=== PATIENT | female | born 1945 | race Caucasian/White ===

== ENCOUNTER → 2017-01-16 | Outpatient (CLI) | payer OTHER ==
[~2017-01-16] MED LIST: ASPEC81 PO; B-COCAP2 PO; CALCTAB5 PO; CETI10TA10 PO; CHOL1000 PO; CRAN500C2 PO; MULT-506 PO; OMEP40CA PO
[2017-01-16 16:26] LABS: BASO % 0.1 %; BASO ABS # 0.01 K/uL (0-0.2); COMPLETE YES; EOS % 1.9 %; HEMATOCRIT 38.6 % (37-47); IG% 0.1 %; LYMPH % 24.8 %; LYMPH ABS # 1.71 K/uL (1.2-3.4); MEAN CELL VOLUME 91.3 fL (80-100); MEAN CORPUSCULAR HEMOGLOBIN 31.7 pg (25-34); MEAN CORPUSCULAR HGB CONC 34.7 g/dl (32-36); MEAN PLATELET VOLUME 10.2 fL (7.4-10.4); MONO % 5.5 %; NEUT % 67.6 %; PLATELET COUNT 239 K/uL (130-400); RED BLOOD COUNT 4.23 M/uL (4.2-5.4)
[2017-01-16 17:04] LABS: ALT/SGPT 31 U/L (12-78); BLOOD UREA NITROGEN 11 mg/dl (7-18); BUN/CREATININE RATIO 11.1 (10-20); CALCIUM 8.7 mg/dl (8.5-10.1); CARBON DIOXIDE 28 mmol/L (21-32); CHLORIDE 101 mmol/L (98-107); CREATININE 0.97 mg/dl (0.60-1.20); GLUCOSE 95 mg/dl (70-99); POTASSIUM 3.8 mmol/L (3.5-5.1); SODIUM 136 mmol/L (136-145)
[2017-01-16 17:07] LABS: ALB/GLOB RATIO 1.3 (0.9-2); ALKALINE PHOSPHATASE 109 U/L (45-117); AST/SGOT 25 U/L (15-37)
--- NOTE | 2017-01-24 07:31 | CODING QUERY MEDICAL NECESSITY ---
CQSUPPORTING DIAGNOSIS NEEDED A supporting diagnosis is required for the test/procedure performed on this patient in order for us to be reimbursed by the patient's insurance. Please provide a supporting diagnosis for the following test/procedure listed below next to the test name along with your signature. *If there is no additional diagnosis for this patient that would support the following test/procedure please document that below next to the test/procedure. Test(s)/Procedure(s) that require a supporting diagnosis: DOS 01/16/17 VITAMIN B12 VITAMIN D Provider Signature: Date: Thank you Jelly Briones Health Information Management Once completed, please kindly fax back to [phone] For questions please call [phone]
== END | disposition home or self-care (01) ==
LOC: C.LAB1850 15:30
PROVIDERS: ATTEND Internal Medicine
DX: Z11.59 Encounter for screening for other viral diseases (principal); R20.2 Paresthesia of skin; Z87.39 Personal history of other diseases of the musculoskeletal system and connective tissue; R06.02 Shortness of breath; R53.83 Other fatigue; M85.80 Other specified disorders of bone density and structure, unspecified site

== ENCOUNTER → 2017-01-26 | Outpatient (CLI) | payer OTHER ==
--- NOTE | 2017-01-26 13:32 | MAMMOGRAPHY REPORT ---
BILATERAL DIGITAL SCREENING MAMMOGRAM WITH CAD: 01/26/2017 TECHNIQUE: Current study was also evaluated with a Computer Aided Detection (CAD) system. Bilatera l CC and MLO views were obtained. COMPARISON: Comparison is made to exams dated: 01/24/2016 mammogram, 01/22/2015 mammogram, 01/21/2014 mammogram, 01/20/2013 mammogram, 01/18/2012 mammogram, and 01/16/2011 mammogram - [facility]. BREAST COMPOSITION: The tissue of both breasts is heterogeneously dense, which may obscure small ma sses. FINDINGS: No suspicious masses, calcifications, or areas of architectural distortion are noted in e ither breast. There has been no significant interval change compared to prior exams. IMPRESSION: ACR BI-RADS CATEGORY 1: NEGATIVE There is no mammographic evidence of malignancy. A 1 year screening mammogram is recommended. The p atient will receive written notification of the results. Approximately 10% of breast cancers are not detected with mammography. A negative mammographic repor t should not delay biopsy if a clinically suggestive mass is present. Priscilla Arriaga M.D. ah/:01/26/2017 12:47:48 [employer]ductor Symphonic Orchestra: Haley Mcclure RT(R)(M), [facility] letter sent: Normal 1/2 BI-RADS Code: ACR BI-RADS Category 1: Negative
== END | disposition home or self-care (01) ==
LOC: C.MAMM 11:19
PROVIDERS: ATTEND Obstetrics & Gynecology
DX: Z12.31 Encounter for screening mammogram for malignant neoplasm of breast (principal)

== ENCOUNTER → 2017-08-06 | Outpatient (CLI) | payer OTHER | END | disposition home or self-care (01) | LOC: C.MAMM 10:18 | PROVIDERS: ATTEND Internal Medicine | DX: Z87.39 Personal history of other diseases of the musculoskeletal system and connective tissue (principal); M85.89 Other specified disorders of bone density and structure, multiple sites; M81.0 Age-related osteoporosis without current pathological fracture ==

== ENCOUNTER → 2017-08-28 | Outpatient (CLI) | payer OTHER ==
[2017-08-28 17:06] LABS: CALCIUM 9.4 mg/dl (8.5-10.1); CREATININE 0.86 mg/dl (0.60-1.20)
== END | disposition home or self-care (01) ==
LOC: C.LAB1850 15:09
PROVIDERS: ATTEND Internal Medicine Rheumatology
DX: E61.8 Deficiency of other specified nutrient elements (principal)

== ENCOUNTER → 2017-09-03 | Outpatient (CLI) | payer OTHER ==
[2017-09-03 13:55] LABS: URINE COLLECTION TIME 24 HOURS
[2017-09-03 14:03] LABS: CALCIUM URINE < 5.0 mg/dl
[2017-09-03 15:47] LABS: CALCIUM 9.1 mg/dl (8.5-10.1)
== END | disposition home or self-care (01) ==
LOC: C.LAB1850 11:50
PROVIDERS: ATTEND Internal Medicine Rheumatology
DX: M81.0 Age-related osteoporosis without current pathological fracture (principal); E61.8 Deficiency of other specified nutrient elements

== ENCOUNTER → 2017-11-05 | Outpatient (CLI) | payer OTHER ==
--- NOTE | 2017-11-05 13:20 | DIAGNOSTIC IMAGING REPORT ---
LUMBAR SPINE 5 VIEWS CLINICAL HISTORY: Right-sided back pain. Sciatica. FINDINGS: Five views of the lumbar spine are compared to study dated 04/11/2016. The skeletal structures are osteopenic. There is no radiographic evidence of fracture or malalignment. Vertebral body height and alignment are maintained throughout the lumbar spine. Mild to moderate lumbar levocurvature is centered at L2. The transverse and spinous processes appear intact. There is no evidence of spondylolysis. Small anterior and marginal osteophytes are seen throughout. There is mild disc space narrowing seen from L3 to L4 through L5-S1. Mild to moderate facet arthropathy is noted in the lower lumbar region. The bony pelvis is intact as imaged. No bowel obstruction is seen. IMPRESSION: 1. No acute bony abnormality is seen involving the lumbar spine. 2. Osteopenia with lumbosacral spondylosis and scoliosis as above. Dictated: 11/05/2017 12:47 PM Transcribed: 11/05/2017 1:19 PM Monica Electronically signed by: Osmar Altamirano M.D. 11/05/2017 1:21 PM Dictated Date/Time: 11/05/2017 12:47 PM
== END | disposition home or self-care (01) ==
LOC: C.RAD1850 12:17
PROVIDERS: ATTEND Internal Medicine
DX: M54.41 Lumbago with sciatica, right side (principal)

== ENCOUNTER → 2017-12-21 | Outpatient (CLI) | payer OTHER ==
--- NOTE | 2017-12-21 16:19 | DIAGNOSTIC IMAGING REPORT ---
LUMBAR SPINE W/O CONTRAST HISTORY: Pain M54.5 Low back painR20.2 CvtutpteU80.0 HuxrivgbM79.9 Sleep distu TECHNIQUE: Multiplanar multisequence MRI of the lumbar spine was performed without the use of contrast. COMPARISON: None. FINDINGS: For the purpose of the report the L5-S1 disc space will be located on axial image 27 of 30. Normal vertebral body signal characteristics. Benign bone marrow hemangioma of T12. Moderate degenerative disc changes throughout. Right renal cyst measuring 2.8 cm. L1-L2: No significant central canal or neural foraminal narrowing. L2-L3: Mild broad-based bulging disc. Minimal impact anterior thecal sac. Minimal narrowing right neuroforamina. L3-L4: Mild right central disc herniation. Moderate narrowing right neuroforamina. Mild impact right central anterior thecal sac. L4-L5: Broad-based disc herniation. Moderate multifactorial narrowing of the spinal canal. Considerable narrowing right neuroforamina. Moderate narrowing left neural foramina. Considerable degenerative and hypertrophic change posterior facets. L5-S1: Minimal broad-based bulging disc. IMPRESSION: 1. Broad-based disc herniation L4-L5 , with findings of moderate multifactorial narrowing of the spinal canal. 2. Considerable narrowing right neuroforamina at L4-L5. 3. Mild right central disc herniation L3-L4 with moderate narrowing right neuroforamina. 4. Several additional minimal disc bulges. The above report was generated using voice recognition software. It may contain grammatical, syntax or spelling errors. Electronically signed by: Francisco Hernandez M.D. 12/21/2017 4:18 PM Dictated Date/Time: 12/21/2017 4:14 PM
== END | disposition home or self-care (01) ==
LOC: C.MRI 14:37
PROVIDERS: ATTEND Internal Medicine
DX: M51.26 Other intervertebral disc displacement, lumbar region (principal); R20.2 Paresthesia of skin; R20.0 Anesthesia of skin; G47.9 Sleep disorder, unspecified; M54.41 Lumbago with sciatica, right side

== ENCOUNTER → 2018-01-10 | Outpatient (CLI) | payer OTHER | END | disposition home or self-care (01) | LOC: C.PATHSPEC 18:06 | PROVIDERS: ATTEND Plastic Surgery | DX: D04.62 Carcinoma in situ of skin of left upper limb, including shoulder (principal) ==

== ENCOUNTER → 2018-01-28 | Outpatient (CLI) | payer OTHER ==
--- NOTE | 2018-01-29 07:40 | MAMMOGRAPHY REPORT ---
BILATERAL DIGITAL SCREENING MAMMOGRAM TOMOSYNTHESIS WITH CAD: 01/28/2018 CLINICAL HISTORY: Routine screening. Patient has no complaints. TECHNIQUE: Breast tomosynthesis in addition to standard 2D mammography was performed. Current study was also evaluated with a Computer Aided Detection (CAD) system. COMPARISON: Comparison is made to exams dated: 01/26/2017 mammogram, 01/24/2016 mammogram, 01/22/2015 m ammogram, 01/21/2014 mammogram, 01/20/2013 mammogram, and 01/18/2012 mammogram - [facility] enter. BREAST COMPOSITION: The tissue of both breasts is heterogeneously dense, which may obscure small mas ses. FINDINGS: The parenchymal pattern is unchanged. No developing mass, architectural distortion or clus ter of suspicious microcalcifications is seen in either breast. IMPRESSION: ACR BI-RADS CATEGORY 2: BENIGN There is no mammographic evidence of malignancy. A 1 year screening mammogram is recommended. The pa tient will receive written notification of the results. Approximately 10% of breast cancers are not detected with mammography. A negative mammographic report should not delay biopsy if a clinically suggestive mass is present. Maria Luisa Chavez M.D. ay/:01/28/2018 15:35:41 Release Coordinator: Isable HENDRICKS(Glenn)(M), [facility] letter sent: Normal 1/2 BI-RADS Code: ACR BI-RADS Category 2: Benign
== END | disposition home or self-care (01) ==
LOC: C.MAMM 13:00
PROVIDERS: ATTEND Obstetrics & Gynecology
DX: Z12.31 Encounter for screening mammogram for malignant neoplasm of breast (principal)

== ENCOUNTER 2023-02-25 13:07 | Observation (INO) ==
[2023-02-25] MEDS ORDERED: SODIUM CHLORIDE 0.9% 1000ML 500 ML IV ONE (13:36)
--- NOTE | 2023-02-25 13:41 | Emergency Department Note ---
History of Present Illness General Chief complaint: Illness Stated complaint: GAIT DISTURBANCE, RIGHT SIDE NUMBNESS, HEADACHE Time Seen by Provider: 02/25/23 13:24 Source: patient, family ( who is at the bedside) and old records reviewed (I have reviewed old labs and previous hospital encounters) Mode of arrival: ambulatory Limitations: no limitations History of Present Illness This patient is a 77-year-old female who comes in after having episodes where it felt like her right arm was weak and tingly. She says that she has had a decreased appetite recently from gastroparesis and is lost about 10 pounds. She says she cannot eat a lot and she went to [email or web address] this morning felt fine and around 08-18 15 she started feeling like she was shaky and numb in her right arm nothing on the right face or leg. She said she felt she could not stand. She felt she might pass out when she was standing. Her said she had a headache at the time she feels better at present just feels diffusely weak she had another episode where her arm felt tingly again but none at present no chest pain may be slightly short of breath at time. No difficulty speaking or swallowing no fall or trauma. She says she laid down and felt okay. No history of stroke or mini strokes. Looking back through the chart she has had hyponatremia in the past. She also has had memory issues over the last 3 years. Home Medications Medication Instructions Recorded Confirmed Type calcium carbonate 600 mg calcium 600 mg PO QAM 11/24/19 02/25/23 History (1,500 mg) tablet (Calcium) cholecalciferol (vitamin D3) 25 1,000 units PO QAM 02/17/20 02/25/23 History mcg (1,000 unit) capsule multivitamin with minerals 1 tab PO QAM 01/17/21 02/25/23 History (Hair,Skin and Nails tablet) triamcinolone acetonide 55 mcg 1 spray intranasal DAILY #16.9 mL 08/16/22 02/25/23 Rx nasal spray aerosol (Nasacort) escitalopram oxalate 10 mg tablet 15 mg PO HS 11/22/22 02/25/23 History oxybutynin chloride 5 mg 5 mg PO DAILY #90 tabs 01/02/23 02/25/23 Rx tablet,extended release 24 hr donepezil 5 mg tablet 5 mg PO HS #30 tabs 02/15/23 02/25/23 Rx omeprazole 40 mg capsule,delayed 40 mg PO DAILY #90 caps 02/21/23 02/25/23 Rx release ondansetron HCl 4 mg tablet 4 mg PO Q8H PRN nausea and 02/22/23 02/25/23 Rx vomiting #90 tabs Allergies Allergy/AdvReac Type Severity Reaction Status Date / Time Sulfa (Sulfonamide Allergy Intermediate HIVES Verified 02/21/23 13:26 Antibiotics) Penicillins Allergy Mild RASH Verified 02/21/23 13:26 doxycycline AdvReac Nausea and Verified 02/21/23 13:26 vomiting Past Med/Surg History Medical History Adjustment disorder with depressed mood Anxiety Cognitive and behavioral changes memory issues Cyst of kidney, acquired DDD (degenerative disc disease) GERD without esophagitis History of osteonecrosis HTN (hypertension) Nausea reason for upcoming procedure Osteoporosis Scoliosis mild Signs and symptoms involving cognition SOBOE (shortness of breath on exertion) Surgical History History of cataract surgery BL History of esophagogastroduodenoscopy (EGD) History of tooth extraction Hx of colonoscopy S/P tubal ligation Family History Mother , age 83 Lymphoma Hypertension Grandmother (Paternal) Breast cancer Grandfather (Maternal) Colorectal cancer Father Dementia Stroke Brother Lung cancer Stroke Other No family history of adverse response to anesthesia Denies family history of Ovarian cancer Prostate cancer Myocardial infarction Social History Smoking Status: Former smoker Second Hand Exposure: No; Do You Dip or Chew Tobacco: No; Hx Alcohol Use: Yes (Socially if family events no more than 1 glass at the time) Hx Substance Use: No Preferred Language: Angolan Communication Ability: Effective Visual Impairment: No Limitations Hearing Ability: Normal Pecan Sheller Required: No Beliefs That Will Affect Care: None marital status: Current Living Situation: Spouse Feels Safe at Home: Yes Seatbelt Use: always Assistive Devices: Denture - Lower Review of Systems A total of 10 systems reviewed and were otherwise negative Physical Exam Vital Signs Vital Signs - 24 hr 02/25/23 13:10 02/25/23 13:25 02/25/23 13:27 Temperature 36.6 C Temperature Source Temporal Artery Scan Pulse Rate 78 75 Pulse Rate [Apical] 76 Pulse Rate from SpO2 Sensor Respiratory Rate 16 12 Respiratory Effort / Characteristics Non-Labored Spontaneous Respiratory Depth Normal Respiratory Pattern Regular Blood Pressure 149/79 H Blood Pressure [Left Arm] 158/83 H Blood Pressure Mean 102 Blood Pressure Mean [Left Arm] 108 Pulse Oximetry 99 14 L Oxygen Delivery Method Room Air Sepsis Recent Fever Within 48 Hours No Sepsis New/Unexplained Change in Mental Status N/A Sepsis Action Taken by Nursing No Action Required 02/25/23 13:24 02/25/23 13:27 02/25/23 13:27 Temperature Temperature Source Pulse Rate 73 74 Pulse Rate [Apical] Pulse Rate from SpO2 Sensor Respiratory Rate 19 18 Respiratory Effort / Characteristics Respiratory Depth Respiratory Pattern Blood Pressure 158/83 H Blood Pressure [Left Arm] Blood Pressure Mean 108 Blood Pressure Mean [Left Arm] Pulse Oximetry Oxygen Delivery Method Sepsis Recent Fever Within 48 Hours Sepsis New/Unexplained Change in Mental Status Sepsis Action Taken by Nursing 02/25/23 13:30 02/25/23 13:30 02/25/23 13:40 Temperature Temperature Source Pulse Rate 75 74 Pulse Rate [Apical] Pulse Rate from SpO2 Sensor 76 73 Respiratory Rate 21 17 Respiratory Effort / Characteristics Respiratory Depth Respiratory Pattern Blood Pressure 140/74 Blood Pressure [Left Arm] Blood Pressure Mean 96 Blood Pressure Mean [Left Arm] Pulse Oximetry 97 98 Oxygen Delivery Method Sepsis Recent Fever Within 48 Hours Sepsis New/Unexplained Change in Mental Status Sepsis Action Taken by Nursing 02/25/23 13:40 02/25/23 13:50 02/25/23 13:50 Temperature Temperature Source Pulse Rate 73 Pulse Rate [Apical] Pulse Rate from SpO2 Sensor 72 Respiratory Rate 21 Respiratory Effort / Characteristics Respiratory Depth Respiratory Pattern Blood Pressure 151/75 H 147/75 H Blood Pressure [Left Arm] Blood Pressure Mean 100 99 Blood Pressure Mean [Left Arm] Pulse Oximetry 98 Oxygen Delivery Method Sepsis Recent Fever Within 48 Hours Sepsis New/Unexplained Change in Mental Status Sepsis Action Taken by Nursing 02/25/23 14:05 02/25/23 14:21 02/25/23 14:21 Temperature Temperature Source Pulse Rate 81 78 Pulse Rate [Apical] Pulse Rate from SpO2 Sensor 81 78 Respiratory Rate 18 19 Respiratory Effort / Characteristics Respiratory Depth Respiratory Pattern Blood Pressure 123/101 H Blood Pressure [Left Arm] Blood Pressure Mean 108 Blood Pressure Mean [Left Arm] Pulse Oximetry 94 97 Oxygen Delivery Method Sepsis Recent Fever Within 48 Hours Sepsis New/Unexplained Change in Mental Status Sepsis Action Taken by Nursing 02/25/23 14:30 02/25/23 14:41 02/25/23 14:41 Temperature Temperature Source Pulse Rate 73 77 Pulse Rate [Apical] Pulse Rate from SpO2 Sensor 73 75 Respiratory Rate 19 17 Respiratory Effort / Characteristics Respiratory Depth Respiratory Pattern Blood Pressure Blood Pressure [Left Arm] Blood Pressure Mean 13 Blood Pressure Mean [Left Arm] Pulse Oximetry 95 98 Oxygen Delivery Method Sepsis Recent Fever Within 48 Hours Sepsis New/Unexplained Change in Mental Status Sepsis Action Taken by Nursing 02/25/23 15:00 02/25/23 15:00 02/25/23 15:20 Temperature Temperature Source Pulse Rate 74 68 Pulse Rate [Apical] Pulse Rate from SpO2 Sensor 74 68 Respiratory Rate 20 22 Respiratory Effort / Characteristics Respiratory Depth Respiratory Pattern Blood Pressure 142/103 H Blood Pressure [Left Arm] Blood Pressure Mean 116 Blood Pressure Mean [Left Arm] Pulse Oximetry 97 95 Oxygen Delivery Method Sepsis Recent Fever Within 48 Hours Sepsis New/Unexplained Change in Mental Status Sepsis Action Taken by Nursing 02/25/23 15:20 02/25/23 15:30 02/25/23 15:30 Temperature Temperature Source Pulse Rate Pulse Rate [Apical] Pulse Rate from SpO2 Sensor 77 Respiratory Rate 16 Respiratory Effort / Characteristics Respiratory Depth Respiratory Pattern Blood Pressure 154/83 H 184/107 H Blood Pressure [Left Arm] Blood Pressure Mean 106 132 Blood Pressure Mean [Left Arm] Pulse Oximetry 99 Oxygen Delivery Method Sepsis Recent Fever Within 48 Hours Sepsis New/Unexplained Change in Mental Status Sepsis Action Taken by Nursing 02/25/23 15:40 02/25/23 15:40 02/25/23 16:00 Temperature Temperature Source Pulse Rate 75 Pulse Rate [Apical] Pulse Rate from SpO2 Sensor 74 Respiratory Rate 22 Respiratory Effort / Characteristics Respiratory Depth Respiratory Pattern Blood Pressure 136/80 153/76 H Blood Pressure [Left Arm] Blood Pressure Mean 98 101 Blood Pressure Mean [Left Arm] Pulse Oximetry 97 Oxygen Delivery Method Sepsis Recent Fever Within 48 Hours Sepsis New/Unexplained Change in Mental Status Sepsis Action Taken by Nursing 02/25/23 16:00 02/25/23 16:10 02/25/23 16:10 Temperature Temperature Source Pulse Rate 72 73 Pulse Rate [Apical] Pulse Rate from SpO2 Sensor 72 71 Respiratory Rate 22 18 Respiratory Effort / Characteristics Respiratory Depth Respiratory Pattern Blood Pressure 135/68 Blood Pressure [Left Arm] Blood Pressure Mean 90 Blood Pressure Mean [Left Arm] Pulse Oximetry 98 97 Oxygen Delivery Method Room Air Sepsis Recent Fever Within 48 Hours Sepsis New/Unexplained Change in Mental Status Sepsis Action Taken by Nursing 02/25/23 16:20 02/25/23 16:20 02/25/23 16:30 Temperature Temperature Source Pulse Rate 67 Pulse Rate [Apical] Pulse Rate from SpO2 Sensor 67 Respiratory Rate 16 Respiratory Effort / Characteristics Respiratory Depth Respiratory Pattern Blood Pressure 169/84 H 163/86 H Blood Pressure [Left Arm] Blood Pressure Mean 112 111 Blood Pressure Mean [Left Arm] Pulse Oximetry 99 Oxygen Delivery Method Sepsis Recent Fever Within 48 Hours Sepsis New/Unexplained Change in Mental Status Sepsis Action Taken by Nursing 02/25/23 16:30 02/25/23 16:40 02/25/23 16:40 Temperature Temperature Source Pulse Rate 72 69 Pulse Rate [Apical] Pulse Rate from SpO2 Sensor 72 69 Respiratory Rate 24 15 Respiratory Effort / Characteristics Respiratory Depth Respiratory Pattern Blood Pressure 162/89 H Blood Pressure [Left Arm] Blood Pressure Mean 113 Blood Pressure Mean [Left Arm] Pulse Oximetry 97 100 Oxygen Delivery Method Sepsis Recent Fever Within 48 Hours Sepsis New/Unexplained Change in Mental Status Sepsis Action Taken by Nursing 02/25/23 16:50 02/25/23 16:50 02/25/23 17:00 Temperature Temperature Source Pulse Rate 68 Pulse Rate [Apical] Pulse Rate from SpO2 Sensor 68 Respiratory Rate 23 Respiratory Effort / Characteristics Respiratory Depth Respiratory Pattern Blood Pressure 165/81 H 165/90 H Blood Pressure [Left Arm] Blood Pressure Mean 109 115 Blood Pressure Mean [Left Arm] Pulse Oximetry 99 Oxygen Delivery Method Sepsis Recent Fever Within 48 Hours Sepsis New/Unexplained Change in Mental Status Sepsis Action Taken by Nursing 02/25/23 17:00 02/25/23 17:10 02/25/23 17:10 Temperature Temperature Source Pulse Rate 71 70 Pulse Rate [Apical] Pulse Rate from SpO2 Sensor 71 70 Respiratory Rate 24 17 Respiratory Effort / Characteristics Respiratory Depth Respiratory Pattern Blood Pressure 170/89 H Blood Pressure [Left Arm] Blood Pressure Mean 116 Blood Pressure Mean [Left Arm] Pulse Oximetry 96 97 Oxygen Delivery Method Room Air Sepsis Recent Fever Within 48 Hours Sepsis New/Unexplained Change in Mental Status Sepsis Action Taken by Nursing General: Well developed well nourished older female who appears in no acute distress, breathing comfortably on room air. Normal speech, nonslurred. Answers all questions appropriately HEENT: Normal cephalic atraumatic. Pupils are equal round and reactive to light. Extraocular movements are intact. Oropharynx is pink with moist mucous membranes. No swelling of the mouth lips or tongue. No facial asymmetry or droop. Neck: Supple with a midline trachea. No meningeal signs or stiffness, no JVD or bruits. No Stridor. Chest: Clear to auscultation bilaterally. No wheezes or rhonchi. No increased work of breathing. Heart: Regular rate and rhythm without murmurs or gallops. Abdomen: Soft nontender, nondistended without rebound guarding or rigidity. Extremities: No cyanosis clubbing or edema. No calf tenderness or assymetry Spine/Back. Non tender to palpation. No CVA tenderness Skin: Good turgor without rashes. Neurologic exam: Cranial nerves two through 12 are intact. Motor and sensation are intact and symmetrical throughout. No pronator drift. No tremor. Course Administered Medications Discontinued Medications Aspirin (Aspirin 81 Mg Chew) 324 mg PO NOW STA Stop: 02/25/23 14:50 Last Admin: 02/25/23 15:24 Dose: 324 mg Documented By: SAM Sodium Chloride (Nss 1000ml) 500 mls @ 999 mls/hr IV .Q31M ONE Stop: 02/25/23 14:06 Last Infusion: 02/25/23 15:30 Dose: 0 mls/hr Documented By: Admin: 02/25/23 13:48 Dose: 999 mls/hr Documented By: SAM Ioversol (Optiray 320 500ml) 120 ml IV ONCE ONE Stop: 02/25/23 13:56 Last Admin: 02/25/23 13:56 Dose: 120 ml Documented By: LYNSEY Medical Decision Making Differential Diagnosis CVA, TIA, arrhythmia, syncope/near syncope, electrolyte or metabolic abnormality, hyponatremia, infection, dehydration Medical Records Attestation: I reviewed the patient's medical records. Home Medications Current Medication List: was personally reviewed by me Laboratory Data Attestation: I reviewed the patient's lab results. 02/25/23 13:25 02/25/23 13:25 Lab Results 05/21/23 05/21/23 05/21/23 Range/Units 13:25 13:25 13:25 WBC 8.09 (4.8-10.8) K/ul RBC 4.50 (4.20-5.40) M/uL Hgb 13.9 (12.0-16.0) g/dl POC Hgb (12.0-16.0) g/dl Hct 40.8 (37.0-47.0) % POC Hct (37-47) % MCV 90.7 (80.0-100.0) fL MCH 30.9 (25.0-34.0) pg MCHC 34.1 (32.0-36.0) g/dL RDW Std Deviation 41.5 (36.4-46.3) fL RDW Coeff of Sameera 12.6 (11.5-14.5) % Plt Count 246 (130-400) K/uL MPV 10.1 (9.4-12.4) fL Immature Gran % (Auto) 0.2 % Neut % (Auto) 77.3 % Lymph % (Auto) 16.1 % Harlan % (Auto) 5.4 % Eos % (Auto) 0.5 % Baso % (Auto) 0.5 % Neut # (Auto) 6.25 (1.40-6.50) K/uL Lymph # (Auto) 1.30 (1.2-3.4) K/uL Harlan # (Auto) 0.44 (0.11-0.59) K/uL Eos # (Auto) 0.04 (0-0.50) K/uL Baso # (Auto) 0.04 (0-0.2) K/uL Immature Gran # (Auto) 0.02 (0.01-0.20) K/uL PT 10.7 (9.0-12.0) Seconds INR 1.0 (0.9-1.1) APTT 23.4 (21.0-31.0) Seconds PTT Ratio 0.8 POC Sodium (135-144) mmol/L Sodium 133 L (136-145) mmol/L POC Potassium (3.3-5.0) mmol/L Potassium 3.1 L (3.5-5.1) mmol/L POC Chloride (101-112) mmol/L Chloride 98 (98-107) mmol/L Carbon Dioxide 27 (21-32) mmol/L POC Total CO2 (24-31) mmol/L Anion Gap 8 (3-11) POC Anion Gap (16-25) mmol/L POC BUN (7-18) mg/dl BUN 11 (6-23) mg/dl Creatinine 0.92 (0.6-1.2) mg/dl POC Creatinine (0.6-1.3) mg/dl Est Cr Clr Drug Dosing 47.4 ml/min Est GFR ( Amer) 70.1 ml/min Est GFR (Non-Af Amer) 60.5 ml/min BUN/Creatinine Ratio 12.0 (10-20) Glucose 108 H (70-99(Fasting)) mg/dl POC Glucose (other) (70-99) mg/dl Calcium 9.6 (8.6-10.3) mg/dl POC Ioniz Calcium Ness (1.12-1.32) mmol/l Magnesium 2.0 (1.7-2.4) mg/dl Total Bilirubin 1.0 (0.2-1.0) mg/dl AST 23 (13-39) U/L ALT 17 (7-52) U/L Alkaline Phosphatase 74 (34-104) U/L Troponin I High Sens 3.9 (0-14) pg/ml Total Protein 7.4 (6.0-8.3) gm/dl Albumin 4.4 (3.4-5.0) gm/dl Globulin 3.0 (2.5-4.0) gm/dl Albumin/Globulin Ratio 1.5 (0.9-2) SARS-CoV-2, RNA, NAAT (NEGATIVE) 02/25/23 02/25/23 Range/Units 13:42 15:26 WBC (4.8-10.8) K/ul RBC (4.20-5.40) M/uL Hgb (12.0-16.0) g/dl POC Hgb 15.0 (12.0-16.0) g/dl Hct (37.0-47.0) % POC Hct 44 (37-47) % MCV (80.0-100.0) fL MCH (25.0-34.0) pg MCHC (32.0-36.0) g/dL RDW Std Deviation (36.4-46.3) fL RDW Coeff of Sameera (11.5-14.5) % Plt Count (130-400) K/uL MPV (9.4-12.4) fL Immature Gran % (Auto) % Neut % (Auto) % Lymph % (Auto) % Harlan % (Auto) % Eos % (Auto) % Baso % (Auto) % Neut # (Auto) (1.40-6.50) K/uL Lymph # (Auto) (1.2-3.4) K/uL Harlan # (Auto) (0.11-0.59) K/uL Eos # (Auto) (0-0.50) K/uL Baso # (Auto) (0-0.2) K/uL Immature Gran # (Auto) (0.01-0.20) K/uL PT (9.0-12.0) Seconds INR (0.9-1.1) APTT (21.0-31.0) Seconds PTT Ratio POC Sodium 134 L (135-144) mmol/L Sodium (136-145) mmol/L POC Potassium 3.1 L (3.3-5.0) mmol/L Potassium (3.5-5.1) mmol/L POC Chloride 96 L (101-112) mmol/L Chloride (98-107) mmol/L Carbon Dioxide (21-32) mmol/L POC Total CO2 25 (24-31) mmol/L Anion Gap (3-11) POC Anion Gap 17.0 (16-25) mmol/L POC BUN 11 (7-18) mg/dl BUN (6-23) mg/dl Creatinine (0.6-1.2) mg/dl POC Creatinine 0.9 (0.6-1.3) mg/dl Est Cr Clr Drug Dosing ml/min Est GFR ( Amer) ml/min Est GFR (Non-Af Amer) ml/min BUN/Creatinine Ratio (10-20) Glucose (70-99(Fasting)) mg/dl POC Glucose (other) 114 H (70-99) mg/dl Calcium (8.6-10.3) mg/dl POC Ioniz Calcium Ness 1.24 (1.12-1.32) mmol/l Magnesium (1.7-2.4) mg/dl Total Bilirubin (0.2-1.0) mg/dl AST (13-39) U/L ALT (7-52) U/L Alkaline Phosphatase (34-104) U/L Troponin I High Sens (0-14) pg/ml Total Protein (6.0-8.3) gm/dl Albumin (3.4-5.0) gm/dl Globulin (2.5-4.0) gm/dl Albumin/Globulin Ratio (0.9-2) SARS-CoV-2, RNA, NAAT NEGATIVE (NEGATIVE) Imaging Data Attestation: I personally reviewed and interpreted this imaging study as follows: My Impression: Chest x-rayno acute infiltrate, failure, pneumothorax seen Head CTno hemorrhage or mass effect. I do see a hypodensity in the right cerebellar area of questionable significance. Radiologist's Impression: Chest X-Ray 02/25/23 13:36 XR chest 1V portable CLINICAL HISTORY: neuro deficit, acute stroke suspected TECHNIQUE: Single frontal radiograph of the chest was obtained. Comparison: Comparison is made to chest radiograph 08/16/2022 FINDINGS: No lines and tubes are seen. The cardiomediastinal silhouette is normal. The lungs are clear. No evidence of pleural effusion or pneumothorax. IMPRESSION: No acute chest disease. ACT 112: Negative or not required by law. Electronically signed by: Wu Walton M.D. 02/25/2023 2:[address] 02/25/23 13:36 CT angio neck with con, CT head/brain wo con, CT angio head w con CLINICAL HISTORY: neuro deficit, acute stroke suspected TECHNIQUE: Contiguous axial CT images of the head were acquired from the base of the skull to the vertex without intravenous contrast administration. CT angiography of the head and neck was performed following intravenous administration of iodinated contrast. Coronal and sagittal MIPS were obtained from the axial data set and were submitted for review. Automated dose lowering techniques and/or adjustment according to patient size were utilized for this examination. All measurements were calculated based on NASCET criteria. CT DOSE: 1002.56 mGy.cm Comparison: None available at the time of this dictation. FINDINGS: CT head: Areas of decreased attenuation are present in the periventricular and subcortical white matter bilaterally consistent with small vessel ischemic disease. Generalized cerebral atrophy with commensurate enlargement of the ventricles, sulci, and cisterns is also present. There is no acute intracranial hemorrhage or evidence of acute territorial infarction. No shift of the midline structures, mass effect, or extra-axial abnormalities are shown. Atherosclerotic calcifications are present in the intracranial segments of the internal carotid arteries. Lungs and soft tissues are unremarkable. CTA Neck: A 3 vessel aortic arch is shown. There is no significant atherosclerotic plaque in the aortic arch or the origins of the innominate, left common carotid, and left subclavian arteries. The common carotid, external carotid, cervical segments of the internal carotid arteries, and the cervical segments of the vertebral arteries are patent without hemodynamically significant stenosis. The left vertebral artery is dominant. CTA Head: The anterior and posterior cerebral circulations are patent. origin of the right posterior cerebral artery is seen. IMPRESSION: 1. No acute intracranial hemorrhage, evidence of acute territorial infarction, or other acute intracranial disease process. 2. No occlusion, hemodynamically significant stenosis, or dissection in the hemalatha or cervical arteries. 3. No occlusion, hemodynamically significant stenosis, aneurysm, dissection, or arteriovenous malformation in the major intracranial arteries. Assessment of stenosis of the internal carotid arteries is based on NASCET criteria. ACT 112: Negative or not required by law. Electronically signed by: Wu Walton M.D. 02/25/2023 2:22 PM Head CTA 02/25/23 13:36 CT angio neck with con, CT head/brain wo con, CT angio head w con CLINICAL HISTORY: neuro deficit, acute stroke suspected TECHNIQUE: Contiguous axial CT images of the head were acquired from the base of the skull to the vertex without intravenous contrast administration. CT angiography of the head and neck was performed following intravenous administration of iodinated contrast. Coronal and sagittal MIPS were obtained from the axial data set and were submitted for review. Automated dose lowering techniques and/or adjustment according to patient size were utilized for this examination. All measurements were calculated based on NASCET criteria. CT DOSE: 1002.56 mGy.cm Comparison: None available at the time of this dictation. FINDINGS: CT head: Areas of decreased attenuation are present in the periventricular and subcortical white matter bilaterally consistent with small vessel ischemic disease. Generalized cerebral atrophy with commensurate enlargement of the ventricles, sulci, and cisterns is also present. There is no acute intracranial hemorrhage or evidence of acute territorial infarction. No shift of the midline structures, mass effect, or extra-axial abnormalities are shown. Atherosclerotic calcifications are present in the intracranial segments of the internal carotid arteries. Lungs and soft tissues are unremarkable. CTA Neck: A 3 vessel aortic arch is shown. There is no significant atherosclerotic plaque in the aortic arch or the origins of the innominate, left common carotid, and left subclavian arteries. The common carotid, external carotid, cervical segments of the internal carotid arteries, and the cervical segments of the vertebral arteries are patent without hemodynamically significant stenosis. The left vertebral artery is dominant. CTA Head: The anterior and posterior cerebral circulations are patent. origin of the right posterior cerebral artery is seen. IMPRESSION: 1. No acute intracranial hemorrhage, evidence of acute territorial infarction, or other acute intracranial disease process. 2. No occlusion, hemodynamically significant stenosis, or dissection in the major cervical arteries. 3. No occlusion, hemodynamically significant stenosis, aneurysm, dissection, or arteriovenous malformation in the major intracranial arteries. Assessment of stenosis of the internal carotid arteries is based on NASCET criteria. ACT 112: Negative or not required by law. Electronically signed by: Wu Walton M.D. 02/25/2023 2:22 PM Neck CTA 02/25/23 13:36 CT angio neck with con, CT head/brain wo con, CT angio head w con CLINICAL HISTORY: neuro deficit, acute stroke suspected TECHNIQUE: Contiguous axial CT images of the head were acquired from the base of the skull to the vertex without intravenous contrast administration. CT angiography of the head and neck was performed following intravenous administration of iodinated contrast. Coronal and sagittal MIPS were obtained from the axial data set and were submitted for review. Automated dose lowering techniques and/or adjustment according to patient size were utilized for this examination. All measurements were calculated based on NASCET criteria. CT DOSE: 1002.56 mGy.cm Comparison: None available at the time of this dictation. FINDINGS: CT head: Areas of decreased attenuation are present in the periventricular and subcortical white matter bilaterally consistent with small vessel ischemic disease. Generalized cerebral atrophy with commensurate enlargement of the ventricles, sulci, and cisterns is also present. There is no acute intracranial hemorrhage or evidence of acute territorial infarction. No shift of the midline structures, mass effect, or extra-axial abnormalities are shown. Atherosclerotic calcifications are present in the intracranial segments of the internal carotid arteries. Lungs and soft tissues are unremarkable. CTA Neck: A 3 vessel aortic arch is shown. There is no significant at herosclerotic plaque in the aortic arch or the origins of the innominate, left common carotid, and left subclavian arteries. The common carotid, external carotid, cervical segments of the internal carotid arteries, and the cervical segments of the vertebral arteries are patent without hemodynamically significant stenosis. The left vertebral artery is dominant. CTA Head: The anterior and posterior cerebral circulations are patent. origin of the right posterior cerebral artery is seen. IMPRESSION: 1. No acute intracranial hemorrhage, evidence of acute territorial infarction, or other acute intracranial disease process. 2. No occlusion, hemodynamically significant stenosis, or dissection in the major cervical arteries. 3. No occlusion, hemodynamically significant stenosis, aneurysm, dissection, or arteriovenous malformation in the major intracranial arteries. Assessment of stenosis of the internal carotid arteries is based on NASCET criteria. ACT 112: Negative or not required by law. Electronically signed by: Wu Walton M.D. 02/25/2023 2:22 PM ECG Data Attestation: I personally reviewed and interpreted this ECG as follows: Indication: + weakness Rate (beats per minute): 74 Rhythm: + normal sinus ECG Intervals/blocks: + Normal QRS, + Normal QT and + Normal DE ECG [place]: + Normal ECG ST segments: + Normal ST segments ECG Findings: no PACs or no PVCs Comparison ECG Date: from (02/03/09) Change: no significant change MDM Narrative This patient comes in as described above she had an episode where she had was weak and numb and tingling in her right arm. she felt like she may pass out she feels better at present. she may have also had a second episode they both lasted briefly, she has a normal neurologic exam at present and has nothing that would meet thrombolytic criteria. IV access established was hydrated with 500 cc IV normal saline bolus a full stroke work-up was done I did a vwbij-pu-[id number] i-STAT to get quick electrolytes and renal function. She was placed on a diamond saw operator and multiple blood testing and imaging was obtained I discussed the case with the patient and her who is at the bedside. Her gezej-ob-jycu i- STAT shows a normal sodium and normal renal functions and otherwise normal labs. EKG does not show any ischemic changes or ectopy or significant arrhythmia. Her neuroimaging was unremarkable. I did question a possible hypodensity on the right cerebellar area but I talked to Dr. Walton in consultation, the radiologist and he feels that it was artifactual due to her head being slightly tilted. The patient is remained stable. The rest of her work-up looks unremarkable what of concern with these 2 episodes she had where she had neuro transient neurologic symptoms in her right arm could have been related to TIA. She was given aspirin 324 mg chewable I have discussed the case with and consulted Dr. Ashley, from the [facility] hospitalist group and he saw the patient in the ER and will keep her for neurologic work-up and further inpatient/observation work-up Continuous cardiac monitoring: Orders placed in EMR for continuous cardiac monitoring: Upon my evaluation patient was noted to be normal sinus rhythm with a rate of 75. Impression & Plan TIA (transient ischemic attack), Weakness, Left arm numbness, Dizziness, Lab test negative for COVID-19 virus Discharge Plan Visit Data Chief Complaint: Illness Stated Complaint: GAIT DISTURBANCE, RIGHT SIDE NUMBNESS, HEADACHE ED Provider: Kenny Gaxiola Discharge Problem: TIA (transient ischemic attack), Weakness, Left arm numbness, Dizziness, Lab test negative for COVID-19 virus Forms Stand Alone Forms: [facility] Prescriptions Prescriptions: No Action oxybutynin chloride 5 mg tablet extended release 24hr 5 mg PO DAILY Qty: 90 1RF calcium carbonate [Calcium 600] 600 mg calcium (1,500 mg) tablet 600 mg PO QAM cholecalciferol (vitamin D3) 25 mcg (1,000 unit) capsule 1,000 units PO QAM donepezil 5 mg tablet 5 mg PO HS Qty: 30 5RF omeprazole 40 mg capsule,delayed release(DR/EC) 40 mg PO DAILY Qty: 90 1RF ondansetron HCl 4 mg tablet 4 mg PO Q8H PRN (Reason: nausea and vomiting) Qty: 90 0RF multivitamin with minerals [Hair,Skin and Nails] Tablet 1 tab PO QAM triamcinolone acetonide [Nasacort] 55 mcg aerosol,spray 1 spray intranasal DAILY Qty: 16.9 0RF Rx Instructions: administer into each nostril escitalopram oxalate 10 mg tablet 15 mg PO HS Referrals Referrals: Abigail Humphrey MD [Primary Care Provider] -
[2023-02-25 13:55] LABS: iSTAT Creatinine 0.9 mg/dl (0.6-1.3); iSTAT Ionized Calcium 1.24 mmol/l (1.12-1.32); iSTAT Potassium 3.1 mmol/L (3.3-5.0)
[2023-02-25] MEDS ORDERED: OPTIRAY 320 500ml IV ONE (13:55)
[2023-02-25 14:01] LABS: Basophils # (auto) 0.04 K/uL (0-0.2); Basophils % (auto) 0.5 %; Eosinophils # (auto) 0.04 K/uL (0-0.50); Eosinophils % (auto) 0.5 %; Hematocrit (blood only) 40.8 % (37.0-47.0); Hemoglobin 13.9 g/dl (12.0-16.0); Immature Granulocytes # (auto) 0.02 K/uL (0.01-0.20); Immature Granulocytes % (auto) 0.2 %; Lymphocytes % (auto) 16.1 %; Mean Corpuscular Hemoglobin 30.9 pg (25.0-34.0); Mean Corpuscular Hgb Conc 34.1 g/dL (32.0-36.0); Mean Corpuscular Volume 90.7 fL (80.0-100.0); Mean Platelet Volume 10.1 fL (9.4-12.4); Monocytes # (auto) 0.44 K/uL (0.11-0.59); Monocytes % (auto) 5.4 %; Neutrophils # (auto) 6.25 K/uL (1.40-6.50); Neutrophils % (auto) 77.3 %; Platelet Count 246 K/uL (130-400); RDW Coefficient of Variation 12.6 % (11.5-14.5); RDW Standard Deviation 41.5 fL (36.4-46.3); White Blood Count 8.09 K/ul (4.8-10.8)
--- NOTE | 2023-02-25 14:07 | XRay Report ---
XR chest 1V portable CLINICAL HISTORY: neuro deficit, acute stroke suspected TECHNIQUE: Single frontal radiograph of the chest was obtained. Comparison: Comparison is made to chest radiograph 08/16/2022 FINDINGS: No lines and tubes are seen. The cardiomediastinal silhouette is normal. The lungs are clear. No evid ence of pleural effusion or pneumothorax. IMPRESSION: No acute chest disease. ACT 112: Negative or not required by law. Electronically signed by: Wu Walton M.D. 02/25/2023 2:05 PM
[2023-02-25 14:16] LABS: Albumin Globulin Ratio 1.5 (0.9-2); Albumin Level 4.4 gm/dl (3.4-5.0); Calcium 9.6 mg/dl (8.6-10.3); Creatinine Clr Calc Pharmacy 47.4 ml/min; Est GFR (African American) 70.1 ml/min; Est GFR (Non-African American) 60.5 ml/min; Potassium 3.1 mmol/L (3.5-5.1); Total Protein 7.4 gm/dl (6.0-8.3)
[2023-02-25 14:22] LABS: Troponin I High Sensitivity 3.9 pg/ml (0-14)
--- NOTE | 2023-02-25 14:24 | CT Scan Report ---
CT angio neck with con, CT head/brain wo con, CT angio head w con CLINICAL HISTORY: neuro deficit, acute stroke suspected TECHNIQUE: Contiguous axial CT images of the head were acquired from the base of the skull to the suzanne sally without intravenous contrast administration. CT angiography of the head and neck was performed f ollowing intravenous administration of iodinated contrast. Coronal and sagittal MIPS were obtained fr om the axial data set and were submitted for review. Automated dose lowering techniques and/or adjus tment according to patient size were utilized for this examination. All measurements were calculated based on NASCET criteria. CT DOSE: 1002.56 mGy.cm Comparison: None available at the time of this dictation. FINDINGS: CT head: Areas of decreased attenuation are present in the periventricular and subcortical white arben er bilaterally consistent with small vessel ischemic disease. Generalized cerebral atrophy with comme nsurate enlargement of the ventricles, sulci, and cisterns is also present. There is no acute intracr anial hemorrhage or evidence of acute territorial infarction. No shift of the midline structures, mas s effect, or extra-axial abnormalities are shown. Atherosclerotic calcifications are present in the intracranial segments of the internal carotid arteries. Lungs and soft tissues are unremarkable. CTA Neck: A 3 vessel aortic arch is shown. There is no significant atherosclerotic plaque in the aor tic arch or the origins of the innominate, left common carotid, and left subclavian arteries. The co mmon carotid, external carotid, cervical segments of the internal carotid arteries, and the cervical segments of the vertebral arteries are patent without hemodynamically significant stenosis. The left vertebral artery is dominant. CTA Head: The anterior and posterior cerebral circulations are patent. origin of the right pos terior cerebral artery is seen. IMPRESSION: 1. No acute intracranial hemorrhage, evidence of acute territorial infarction, or other acute intrac ranial disease process. 2. No occlusion, hemodynamically significant stenosis, or dissection in the major cervical arteries. 3. No occlusion, hemodynamically significant stenosis, aneurysm, dissection, or arteriovenous malfor mation in the major intracranial arteries. Assessment of stenosis of the internal carotid arteries is based on NASCET criteria. ACT 112: Negative or not required by law. Electronically signed by: Wu Walton M.D. 02/25/2023 2:22 PM
[2023-02-25 14:28] LABS: Partial Thromboplastin Ratio 0.8; Partial Thromboplastin Time 23.4 Seconds (21.0-31.0); Prothrombin Time 10.7 Seconds (9.0-12.0)
[2023-02-25] MEDS ORDERED: ASPIRIN 81 MG CHEW PO STA (14:49)
--- NOTE | 2023-02-25 15:25 | History & Physical Report ---
Date of Service February 25, 2023 Assessment & Plan (1) Arm paresthesia, right: Plan: Marlene is a 77-year-old female with a history of cognitive decline, some memory loss, GERD, urinary urge incontinence who presents with 2 episodes of right arm numbness/tingling and associated lightheadedness and "wobbliness ". She is recommended for admission for evaluation of TIA versus CVA Right arm numbness/tingling/weakness 2 episodes lasting about 15 minutes each. No similar symptoms previously. Patient prodrome started with numbness/tingling in the right arm only which extended up to the shoulder and then was associated with some lightheadedness without room spinning and without syncope. She had no chest pain/chest pressure/shortness of breath/diaphoresis with these episodes Symptoms resolved by time of ER evaluation Patient pending stroke evaluation with CThead: No acute findings reported.? Right posterior density abnormality on image 03/04 and series, this was discussed with radiology and thought to be due to tilt of patient at time of exam. Head/neck CTA: No occlusion, hemodynamically significant stenosis, or dissection in the major cervical arteries. No occlusion, hemodynamically significant stenosis, aneurysm, dissection, or arteriovenous malformation in the major intracranial arteries. Chest x-ray: No acute findings EKG on admission: Normal sinus rhythm, rate 74, QTc 461, no ST segment changes or T wave inversions Received aspirin on admission She has had no urinary symptoms - No leukocytosis, hemoglobin normal. - Sodium at 133. Potassium is 3.1. - Echo 01/2021: EF hyperdynamic 70%, normal wall motion. Bubble study not perf ormed/reported.Echo with bubble study for CVA evaluation pending. We will admit to medical telemetry for completion of stroke eval MRI pending If MRI shows evidence of CVA, patient strongly recommended to continue aspirin and atorvastatin. If MRI is negative can discuss risk/benefits of aspirin for possible TIA, patient notes that she has not tolerated aspirin in the past due to stomach upset. She and her denies ever being on this for TIA/CVA Lipids pending Urinary incontinence Continue oxybutynin Chronic dementia, memory loss Continue donepezil. This was recently started for dementia; ? dizziness/headache 2/2 medication adverse effect. If CVA eval negative and recurrent symptoms, consider holding to see if symptoms improve Anxiety/depression Continue Lexapro DVT prophylaxis: SCDCharlene mcduffienox 02/26 pending stroke eval Diet: Heart healthy Disposition: Medical telemetry CODE STATUS: Full code, discussed with patient and at bedside (2) Dementia: (3) Gastroparesis: (4) Overactive bladder: (5) GERD without esophagitis: History of Present Illness Primary Care Provider: Abigail Humphrey MD Marlene is a 77-year-old female with a history of dementia, Degroot's disease, GERD, gastroparesis, urinary incontinence, and hyponatremia who presents for episodes of right arm weakness and tingling. Has a history of gastroparesis with 10 pound weight loss recently and some overall weakness. She reports she was in mormonism this morning when around 1115 she felt more shaky, weak, and nonfocally in her right arm with no leg weakness. She felt she was also globally weak and had to sit down due to feeling like she might pass out, and had a mild headache. No dysarthria. No prior history of stroke. She was referred to the ER for weakness/stroke evaluation. Had 2x episodes of R arm numbness/shakiness/weakness, resolved, then recurred with lightheadedness/pre-syncope without syncope. Denies short of breath, notes sometimes she wakes up feeling a little short of breath which goes away after waking up. "I don't breath through my nouse well." No shortness of breath at bedside. No chest pain/chest pressure at bedside or with her episode. She notes that she has never had right arm pain before. At time of the episode she was making lunch, she notes she has a small breakfast due to gastroparesis which limits the amount she can eat before she gets nauseous. She was not nauseous when her symptoms came on, reports she had been standing at the sink for several minutes preparing lunch when she suddenly had pain and numbness/tingling which seem to travel up her right arm and then subsequently had lightheadedness and dizziness without syncope. She felt very "wobbly ". The right arm tingling lasted a few minutes and then resolved. About 15 minutes later she had a second episode of right arm tingling/numbness which lasted about 15 to 30 minutes and then resolved. She came to the ER for evaluation as her was very concerned about possible CVA symptoms. She does not have any personal history of heart attack, DE, CVA, TIA, stroke. No family history of DE. Her father did have a stroke in his late 80s. Medical History: Reviewed Medications: Reviewed Surgical History: Reviewed Family history: Reviewed Allergies: Reviewed Social History:Reviewed, no tobacco/etoh use Code Status: Full Allergies Allergy/AdvReac Type Severity Reaction Status Date / Time Sulfa (Sulfonamide Allergy Intermediate HIVES Verified 02/21/23 13:26 Antibiotics) Penicillins Allergy Mild RASH Verified 02/21/23 13:26 doxycycline AdvReac Nausea and Verified 02/21/23 13:26 vomiting Home Medications Medication Instructions Recorded Confirmed Type calcium carbonate 600 mg calcium 600 mg PO QAM 11/24/19 02/25/23 History (1,500 mg) tablet (Calcium) cholecalciferol (vitamin D3) 25 1,000 units PO QAM 02/17/20 02/25/23 History mcg (1,000 unit) capsule multivitamin with minerals 1 tab PO QAM 01/17/21 02/25/23 History (Hair,Skin and Nails tablet) triamcinolone acetonide 55 mcg 1 spray intranasal DAILY #16.9 mL 08/16/22 02/25/23 Rx nasal spray aerosol (Nasacort) escitalopram oxalate 10 mg tablet 15 mg PO HS 11/22/22 02/25/23 History oxybutynin chloride 5 mg 5 mg PO DAILY #90 tabs 01/02/23 02/25/23 Rx tablet,extended release 24 hr donepezil 5 mg tablet 5 mg PO HS #30 tabs 02/15/23 02/25/23 Rx omeprazole 40 mg capsule,delayed 40 mg PO DAILY #90 caps 02/21/23 02/25/23 Rx release ondansetron HCl 4 mg tablet 4 mg PO Q8H PRN nausea and 02/22/23 02/25/23 Rx vomiting #90 tabs Past Med/Surg History Medical History Adjustment disorder with depressed mood Anxiety Cognitive and behavioral changes memory issues Cyst of kidney, acquired DDD (degenerative disc disease) GERD without esophagitis History of osteonecrosis HTN (hypertension) Nausea reason for upcoming procedure Osteoporosis Scoliosis mild Signs and symptoms involving cognition SOBOE (shortness of breath on exertion) Surgical History History of cataract surgery BL History of esophagogastroduodenoscopy (EGD) History of tooth extraction Hx of colonoscopy S/P tubal ligation Family History Mother , age 83 Lymphoma Hypertension Grandmother (Paternal) Breast cancer Grandfather (Maternal) Colorectal cancer Father Dementia Stroke Brother Lung cancer Stroke Other No family history of adverse response to anesthesia Denies family history of Ovarian cancer Prostate cancer Myocardial infarction Social History Smoking Status: Former smoker Second Hand Exposure: No; Do You Dip or Chew Tobacco: No; Hx Alcohol Use: Yes (Socially if family events no more than 1 glass at the time) Hx Substance Use: No Preferred Language: Nigerien Communication Ability: Effective Visual Impairment: No Limitations Hearing Ability: Normal Dx Board Operator Required: No Beliefs That Will Affect Care: None marital status: Current Living Situation: Spouse Feels Safe at Home: Yes Seatbelt Use: always Assistive Devices: Denture - Lower Physical Exam Physical Exam: General: Oriented to name only. Not oriented to year, is oriented that she is in a hospital but does not know which one. No acute distress, cooperative. Follows 1 and two-step commands appropriately. HEENT: Atraumatic, normocephalic. Pulm: CTAB A&P. -wheezes, -rales, -rhonchi. Symmetrical chest rise. No increased work of breathing. No respiratory distress. Cardiac: RRR, -mrg. Radial pulses intact and symmetrical. Abdominal: Nontender, nondistended, soft. BS present. CRANIAL NERVES: II: Pupils equal and reactive, no relative afferent pupillary defect, no VF cuts III, IV, : EOM intact, no gaze preference or deviation, no nystagmus. V: normal sensation in V1, V2, and V3 segments bilaterally VII: no asymmetry, no nasolabial fold flattening VIII: normal hearing to speech IX, X: normal palatal elevation, no uvular deviation XI: 5/5 head turn and 5/5 shoulder shrug bilaterally XII: midline tongue protrusion MOTOR: RUE: 5/5 Shoulder internal rotation, external rotation, flexion, extension, abduction, adduction 5/5 Elbow flexion/extension, wrist flexion/extension 5/5 civil design technician strength, finger flexion/extension, interosseus LUE: 5/5 Shoulder internal rotation, external rotation, flexion, extension, abduction, adduction 5/5 Elbow flexion/extension, wrist flexion/extension 5/5 civil design technician strength, finger flexion/extension, interosseus RLE: 5/5 to hipflexion laying in bed, ankle dorsiflexion/plantarflexion LLE: 5/5 to hip flexion laying in bed, ankle dorsiflexion/plantarflexion SENSORY: Normal to touch in upper and lower extremities without deficit or asymmetry COORD: Normal finger to nose and heel to juarez, no tremor, no dysmetria Results & Data Results & Data Vital Signs (Past 12 Hours) Vital Signs Temp Pulse Pulse Resp BP BP Pulse Ox 02/25/23 13:27 76 12 158/83 H 14 L 02/25/23 13:25 75 02/25/23 13:10 36.6 C 78 16 149/79 H 99 O2 Del Method 02/25/23 13:27 Room Air 02/25/23 13:25 02/25/23 13:10 PG Care Time/CCT Total # of Minutes Spent Total Time Spent with Patient: Total time spent is greater than 50% in coordination of care (as documented) at patient's floor/unit and/or counseling patient: Coding Level of Care Code 51908 INT INP/OBS CARE 2/55MIN Diagnoses Arm paresthesia, right R20.2 Dementia F03.90 Gastroparesis K31.84 Overactive bladder N32.81 GERD without esophagitis K21.9
[2023-02-25] MEDS ORDERED: PHARMACIST DISCHARGE MED REC CONSULT PRN (20:29)
[2023-02-25] MEDS ORDERED: ESCITALOPRAM OXALATE 10 MG TAB PO SCH (21:00)
[2023-02-25] MEDS ORDERED: DONEPEZIL HCL 5 MG TAB PO SCH (21:00)
--- NOTE | 2023-02-26 03:00 | Magnetic Resonance Report ---
Exam(s): MRI HEAD Without Contrast EXAM: MR Head Without Intravenous Contrast CLINICAL HISTORY: Reason for exam: CVA eval. TECHNIQUE: Magnetic resonance images of the head/brain without intravenous contrast in multiple planes. COMPARISON: Head CT, CTA head and neck 02/25/2023 FINDINGS: Brain: Volume loss with prominent ventricles and sulci. T2/flair hyperintensity in the periventricular and subcortical white matter likely reflects chronic small vessel disease. No hemorrhage. No acute infarct. Ventricles: See above. Bones/joints: Unremarkable. Sinuses: Unremarkable as visualized. No acute sinusitis. Mastoid air cells: Unremarkable as visualized. No mastoid effusion. Orbits: Unremarkable as visualized. IMPRESSION: No acute findings in the head/brain. Electronically signed by: Edwin Ochoa M.D. 02/26/23 02:59 AM
[2023-02-26 06:51] LABS: Basophils # (auto) 0.05 K/uL (0-0.2); Basophils % (auto) 0.8 %; Eosinophils # (auto) 0.13 K/uL (0-0.50); Hematocrit (blood only) 38.4 % (37.0-47.0); Hemoglobin 13.1 g/dl (12.0-16.0); Immature Granulocytes # (auto) 0.02 K/uL (0.01-0.20); Immature Granulocytes % (auto) 0.3 %; Lymphocytes # (auto) 1.61 K/uL (1.2-3.4); Lymphocytes % (auto) 25.3 %; Mean Corpuscular Hemoglobin 30.6 pg (25.0-34.0); Mean Corpuscular Hgb Conc 34.1 g/dL (32.0-36.0); Mean Corpuscular Volume 89.7 fL (80.0-100.0); Mean Platelet Volume 10.2 fL (9.4-12.4); Monocytes # (auto) 0.49 K/uL (0.11-0.59); Monocytes % (auto) 7.7 %; Neutrophils # (auto) 4.07 K/uL (1.40-6.50); Neutrophils % (auto) 63.9 %; Platelet Count 218 K/uL (130-400); RDW Coefficient of Variation 12.7 % (11.5-14.5); RDW Standard Deviation 41.2 fL (36.4-46.3); Red Blood Count 4.28 M/uL (4.20-5.40); White Blood Count 6.37 K/ul (4.8-10.8)
[2023-02-26 07:13] LABS: BUN Creatinine Ratio 9.7 (10-20); Calcium 8.8 mg/dl (8.6-10.3); Chol HDL Ratio 3.5 (0-5); Creatinine Clr Calc Pharmacy 57.4 ml/min; Est GFR (African American) 94.3 ml/min; Est GFR (Non-African American) 81.3 ml/min; Potassium 3.5 mmol/L (3.5-5.1)
[2023-02-26 07:54] LABS: Estimated Average Glucose 117 mg/dl; Hemoglobin A1C 5.7 % (4.5-5.6)
[2023-02-26] MEDS ORDERED: ONDANSETRON 4 MG OD TAB PO PRN (08:08)
[2023-02-26] MEDS ORDERED: ATORVASTATIN 40 MG TAB PO SCH ×2 (09:00→11:45)
[2023-02-26] MEDS ORDERED: CALCIUM CARBONATE 1250MG TAB PO SCH (09:00)
[2023-02-26] MEDS ORDERED: PANTOprazole 40 MG TAB PO SCH (09:00)
[2023-02-26] MEDS ORDERED: OXYBUTYNIN CHLORIDE XL 5 MG TABCR PO SCH (09:00)
[2023-02-26] MEDS ORDERED: ASPIRIN 81 MG ECTAB PO SCH (09:00)
[2023-02-26] MEDS ORDERED: CHOLECALCIFEROL 1,000 UNITS 25 MCG TAB PO SCH (09:00)
--- NOTE | 2023-02-26 10:16 | XCELERA ---
[id number] \\[id number]
[2023-02-26] MEDS ORDERED: FAMOTIDINE 20 MG TAB PO SCH (11:00)
--- NOTE | 2023-02-26 11:33 | Electrocardiogram Report ---
Test Reason : Blood Pressure : / mmHG Vent. Rate : 074 BPM Atrial Rate : 074 BPM P-R Int : 132 ms QRS Dur : 076 ms QT Int : 416 ms P-R-T Axes : 030 006 033 degrees QTc Int : 461 ms Normal sinus rhythm Normal ECG When compared with ECG of 03-FEB-2009 00:02, T wave amplitude has decreased in Lateral leads Confirmed by Dick Beltrán ([id number]) on 02/26/2023 11:32:28 AM Referred By: REFERRED SELF Confirmed By:Dick Beltrán
--- NOTE | 2023-02-26 12:58 | Discharge Summary ---
Date of Service February 26, 2023 Admission HPI Per Admitting Provider Marlene is a 77-year-old female with a history of dementia, Degroot's disease, GERD, gastroparesis, urinary incontinence, and hyponatremia who presents for episodes of right arm weakness and tingling. Has a history of gastroparesis with 10 pound weight loss recently and some overall weakness. She reports she was in adventism this morning when around 1115 she felt more shaky, weak, and nonfocally in her right arm with no leg weakness. She felt she was also globally weak and had to sit down due to feeling like she might pass out, and had a mild headache. No dysarthria. No prior history of stroke. She was referred to the ER for weakness/stroke evaluation. Had 2x episodes of R arm numbness/shakiness/weakness, resolved, then recurred with lightheadedness/pre-syncope without syncope. Denies short of breath, notes sometimes she wakes up feeling a little short of breath which goes away after waking up. "I don't breath through my nouse well." No shortness of breath at bedside. No chest pain/chest pressure at bedside or with her episode. She notes that she has never had right arm pain before. At time of the episode she was making lunch, she notes she has a small breakfast due to gastroparesis which limits the amount she can eat before she gets nauseous. She was not nauseous when her symptoms came on, reports she had been standing at the sink for several minutes preparing lunch when she suddenly had pain and numbness/tingling which seem to travel up her right arm and then subsequently had lightheadedness and dizziness without syncope. She felt very "wobbly ". The right arm tingling lasted a few minutes and then resolved. About 15 minutes later she had a second episode of right arm tingling/numbness which lasted about 15 to 30 minutes and then resolved. She came to the ER for evaluation as her was very concerned about possible CVA symptoms. She does not have any personal history of heart attack, IN, CVA, TIA, stroke. No family history of IN. Her father did have a stroke in his late 80s. Medical History: Reviewed Medications: Reviewed Surgical History: Reviewed Family history: Reviewed Allergies: Reviewed Social History:Reviewed, no tobacco/etoh use Code Status: Full Principal Diagnosis TIA Discharge Exam General: Well-developed, well-nourished patient, in no acute distress, pleasant. AOx3. Baseline dementia. No dysarthria. HEENT: No scleral injection or discharge.Moist mucous membranes.Clear oropharynx. Neck is supple without lymphadenopathy or thyromegaly. Lungs: Clear to auscultation bilaterally with good effort. Cardiac: Regular rate and rhythm. No murmurs. No extremity edema. Abdomen: Soft, nontender, and nondistended.No hepatosplenomegaly. Neurologic: Grossly intact cranial nerves. 5/5 strength all extremities without deficit. Normal sensation bilaterally. Discharge Data Allergies Allergy/AdvReac Type Severity Reaction Status Date / Time Sulfa (Sulfonamide Allergy Intermediate HIVES Verified 02/21/23 13:26 Antibiotics) Penicillins Allergy Mild RASH Verified 02/21/23 13:26 doxycycline AdvReac Nausea and Verified 02/21/23 13:26 vomiting Consultations 02/25/23 15:20 ED Decision to Admit Stat Ordered Studies Laboratory Results WBC 6.37 K/ul (4.8-10.8) 02/26/23 05:46 RBC 4.28 M/uL (4.20-5.40) 02/26/23 05:46 Hgb 13.1 g/dl (12.0-16.0) 02/26/23 05:46 POC Hgb 15.0 g/dl (12.0-16.0) 02/25/23 13:42 Hct 38.4 % (37.0-47.0) 02/26/23 05:46 POC Hct 44 % (37-47) 02/25/23 13:42 MCV 89.7 fL (80.0-100.0) 02/26/23 05:46 MCH 30.6 pg (25.0-34.0) 02/26/23 05:46 MCHC 34.1 g/dL (32.0-36.0) 02/26/23 05:46 RDW Std Deviation 41.2 fL (36.4-46.3) 02/26/23 05:46 RDW Coeff of Sameera 12.7 % (11.5-14.5) 02/26/23 05:46 Plt Count 218 K/uL (130-400) 02/26/23 05:46 MPV 10.2 fL (9.4-12.4) 02/26/23 05:46 Immature Gran % (Auto) 0.3 % 02/26/23 05:46 Neut % (Auto) 63.9 % 02/26/23 05:46 Lymph % (Auto) 25.3 % 02/26/23 05:46 [place] % (Auto) 7.7 % 02/26/23 05:46 Eos % (Auto) 2.0 % 02/26/23 05:46 Baso % (Auto) 0.8 % 02/26/23 05:46 Neut # (Auto) 4.07 K/uL (1.40-6.50) 02/26/23 05:46 Lymph # (Auto) 1.61 K/uL (1.2-3.4) 02/26/23 05:46 [place] # (Auto) 0.49 K/uL (0.11-0.59) 02/26/23 05:46 Eos # (Auto) 0.13 K/uL (0-0.50) 02/26/23 05:46 Baso # (Auto) 0.05 K/uL (0-0.2) 02/26/23 05:46 Immature Gran # (Auto) 0.02 K/uL (0.01-0.20) 02/26/23 05:46 PT 10.7 Seconds (9.0-12.0) 02/25/23 13:25 INR 1.0 (0.9-1.1) 02/25/23 13:25 APTT 23.4 Seconds (21.0-31.0) 02/25/23 13:25 PTT Ratio 0.8 02/25/23 13:25 POC Sodium 134 mmol/L (135-144) L 02/25/23 13:42 Sodium 133 mmol/L (136-145) L 02/26/23 05:46 POC Potassium 3.1 mmol/L (3.3-5.0) L 02/25/23 13:42 Potassium 3.5 mmol/L (3.5-5.1) 02/26/23 05:46 POC Chloride 96 mmol/L (101-112) L 02/25/23 13:42 Chloride 100 mmol/L (98-107) 02/26/23 05:46 Carbon Dioxide 27 mmol/L (21-32) 02/26/23 05:46 POC Total CO2 25 mmol/L (24-31) 02/25/23 13:42 Anion Gap 6 (3-11) 02/26/23 05:46 POC Anion Gap 17.0 mmol/L (16-25) 02/25/23 13:42 POC BUN 11 mg/dl (7-18) 02/25/23 13:42 BUN 7 mg/dl (6-23) 02/26/23 05:46 Creatinine 0.72 mg/dl (0.6-1.2) 02/26/23 05:46 POC Creatinine 0.9 mg/dl (0.6-1.3) 02/25/23 13:42 Est Cr Clr Drug Dosing 57.4 ml/min 02/26/23 05:46 Est GFR ( Amer) 94.3 ml/min 02/26/23 05:46 Est GFR (Non-Af Amer) 81.3 ml/min 02/26/23 05:46 BUN/Creatinine Ratio 9.7 (10-20) L 02/26/23 05:46 Glucose 93 mg/dl (70-99(Fasting)) 02/26/23 05:46 POC Glucose (other) 114 mg/dl (70-99) H 02/25/23 13:42 Estimat Average Glucose 117 mg/dl 02/26/23 05:46 Hemoglobin A1c 5.7 % (4.5-5.6) H 02/26/23 05:46 Calcium 8.8 mg/dl (8.6-10.3) 02/26/23 05:46 POC Ioniz Calcium Ness 1.24 mmol/l (1.12-1.32) 02/25/23 13:42 Magnesium 2.0 mg/dl (1.7-2.4) 02/25/23 13:25 Total Bilirubin 1.0 mg/dl (0.2-1.0) 02/25/23 13:25 AST 23 U/L (13-39) 02/25/23 13:25 ALT 17 U/L (7-52) 02/25/23 13:25 Alkaline Phosphatase 74 U/L (34-104) 02/25/23 13:25 Troponin I High Sens 3.9 pg/ml (0-14) 02/25/23 13:25 Total Protein 7.4 gm/dl (6.0-8.3) 02/25/23 13:25 Albumin 4.4 gm/dl (3.4-5.0) 02/25/23 13:25 Globulin 3.0 gm/dl (2.5-4.0) 02/25/23 13:25 Albumin/Globulin Ratio 1.5 (0.9-2) 02/25/23 13:25 Triglycerides 113 mg/dl (0-150) 02/26/23 05:46 Cholesterol 165 mg/dl (0-200) 02/26/23 05:46 LDL Cholesterol, Calc 95 mg/dl 02/26/23 05:46 VLDL Cholesterol, Calc 23 mg/dl (0-30) 02/26/23 05:46 HDL Cholesterol 47 mg/dl 02/26/23 05:46 Cholesterol/HDL Ratio 3.5 (0-5) 02/26/23 05:46 SARS-CoV-2, RNA, NAAT NEGATIVE (NEGATIVE) 02/25/23 15:26 Impressions Chest X-Ray 02/25/23 13:36 XR chest 1V portable CLINICAL HISTORY: neuro deficit, acute stroke suspected TECHNIQUE: Single frontal radiograph of the chest was obtained. Comparison: Comparison is made to chest radiograph 08/16/2022 FINDINGS: No lines and tubes are seen. The cardiomediastinal silhouette is normal. The lungs are clear. No evidence of pleural effusion or pneumothorax. IMPRESSION: No acute chest disease. ACT 112: Negative or not required by law. Electronically signed by: Wu Walton M.D. 02/25/2023 2:[address] 02/25/23 13:36 CT angio neck with con, CT head/brain wo con, CT angio head w con CLINICAL HISTORY: neuro deficit, acute stroke suspected TECHNIQUE: Contiguous axial CT images of the head were acquired from the base of the skull to the vertex without intravenous contrast administration. CT angiography of the head and neck was performed following intravenous administration of iodinated contrast. Coronal and sagittal MIPS were obtained from the axial data set and were submitted for review. Automated dose lowering techniques and/or adjustment according to patient size were utilized for this examination. All measurements were calculated based on NASCET criteria. CT DOSE: 1002.56 mGy.cm Comparison: None available at the time of this dictation. FINDINGS: CT head: Areas of decreased attenuation are present in the periventricular and subcortical white matter bilaterally consistent with small vessel ischemic disease. Generalized cerebral atrophy with commensurate enlargement of the ventricles, sulci, and cisterns is also present. There is no acute intracranial hemorrhage or evidence of acute territorial infarction. No shift of the midline structures, mass effect, or extra-axial abnormalities are shown. Atherosclerotic calcifications are present in the intracranial segments of the internal carotid arteries. Lungs and soft tissues are unremarkable. CTA Neck: A 3 vessel aortic arch is shown. There is no significant atherosclerotic plaque in the aortic arch or the origins of the innominate, left common carotid, and left subclavian arteries. The common carotid, external carotid, cervical segments of the internal carotid arteries, and the cervical segments of the vertebral arteries are patent without hemodynamically significant stenosis. The left vertebral artery is dominant. CTA Head: The anterior and posterior cerebral circulations are patent. origin of the right posterior cerebral artery is seen. IMPRESSION: 1. No acute intracranial hemorrhage, evidence of acute territorial infarction, or other acute intracranial disease process. 2. No occlusion, hemodynamically significant stenosis, or dissection in the major cervical arteries. 3. No occlusion, hemodynamically significant stenosis, aneurysm, dissection, or arteriovenous malformation in the major intracranial arteries. Assessment of stenosis of the internal carotid arteries is based on NASCET criteria. ACT 112: Negative or not required by law. Electronically signed by: Wu Walton M.D. 02/25/2023 2:22 PM Head CTA 02/25/23 13:36 CT angio neck with con, CT head/brain wo con, CT angio head w con CLINICAL HISTORY: neuro deficit, acute stroke suspected TECHNIQUE: Contiguous axial CT images of the head were acquired from the base of the skull to the vertex without intravenous contrast administration. CT angiography of the head and neck was performed following intravenous administration of iodinated contrast. Coronal and sagittal MIPS were obtained from the axial data set and were submitted for review. Automated dose lowering techniques and/or adjustment according to patient size were utilized for this examination. All measurements were calculated based on NASCET criteria. CT DOSE: 1002.56 mGy.cm Comparison: None available at the time of this dictation. FINDINGS: CT head: Areas of decreased attenuation are present in the periventricular and subcortical white matter bilaterally consistent with small vessel ischemic disease. Generalized cerebral atrophy with commensurate enlargement of the ventricles, sulci, and cisterns is also present. There is no acute intracranial hemorrhage or evidence of acute territorial infarction. No shift of the midline structures, mass effect, or extra-axial abnormalities are shown. Atheros clerotic calcifications are present in the intracranial segments of the internal carotid arteries. Lungs and soft tissues are unremarkable. CTA Neck: A 3 vessel aortic arch is shown. There is no significant atherosclerotic plaque in the aortic arch or the origins of the innominate, left common carotid, and left subclavian arteries. The common carotid, external carotid, cervical segments of the internal carotid arteries, and the cervical segments of the vertebral arteries are patent without hemodynamically significant stenosis. The left vertebral artery is dominant. CTA Head: The anterior and posterior cerebral circulations are patent. origin of the right posterior cerebral artery is seen. IMPRESSION: 1. No acute intracranial hemorrhage, evidence of acute territorial infarction, or other acute intracranial disease process. 2. No occlusion, hemodynamically significant stenosis, or dissection in the major cervical arteries. 3. No occlusion, hemodynamically significant stenosis, aneurysm, dissection, or arteriovenous malformation in the major intracranial arteries. Assessment of stenosis of the internal carotid arteries is based on NASCET criteria. ACT 112: Negative or not required by law. Electronically signed by: Wu Walton M.D. 02/25/2023 2:22 PM Neck CTA 02/25/23 13:36 CT angio neck with con, CT head/brain wo con, CT angio head w con CLINICAL HISTORY: neuro deficit, acute stroke suspected TECHNIQUE: Contiguous axial CT images of the head were acquired from the base of the skull to the vertex without intravenous contrast administration. CT angiography of the head and neck was performed following intravenous administration of iodinated contrast. Coronal and sagittal MIPS were obtained from the axial data set and were submitted for review. Automated dose lowering techniques and/or adjustment according to patient size were utilized for this examination. All measurements were calculated based on NASCET criteria. CT DOSE: 1002.56 mGy.cm Comparison: None available at the time of this dictation. FINDINGS: CT head: Areas of decreased attenuation are present in the periventricular and subcortical white matter bilaterally consistent with small vessel ischemic disease. Generalized cerebral atrophy with commensurate enlargement of the ventricles, sulci, and cisterns is also present. There is no acute intracranial hemorrhage or evidence of acute territorial infarction. No shift of the midline structures, mass effect, or extra-axial abnormalities are shown. Atherosclerotic calcifications are present in the intracranial segments of the internal carotid arteries. Lungs and soft tissues are unremarkable. CTA Neck: A 3 vessel aortic arch is shown. There is no significant atheroscler otic plaque in the aortic arch or the origins of the innominate, left common carotid, and left subclavian arteries. The common carotid, external carotid, cervical segments of the internal carotid arteries, and the cervical segments of the vertebral arteries are patent without hemodynamically significant stenosis. The left vertebral artery is dominant. CTA Head: The anterior and posterior cerebral circulations are patent. origin of the right posterior cerebral artery is seen. IMPRESSION: 1. No acute intracranial hemorrhage, evidence of acute territorial infarction, or other acute intracranial disease process. 2. No occlusion, hemodynamically significant stenosis, or dissection in the major cervical arteries. 3. No occlusion, hemodynamically significant stenosis, aneurysm, dissection, or arteriovenous malformation in the major intracranial arteries. Assessment of stenosis of the internal carotid arteries is based on NASCET criteria. ACT 112: Negative or not required by law. Electronically signed by: Wu Walton M.D. 02/25/2023 2:22 PM Brain MRI 02/26/23 00:12 Exam(s): MRI HEAD Without Contrast EXAM: MR Head Without Intravenous Contrast CLINICAL HISTORY: Reason for exam: CVA eval. TECHNIQUE: Magnetic resonance images of the head/brain without intravenous contrast in multiple planes. COMPARISON: Head CT, CTA head and neck 02/25/2023 FINDINGS: Brain: Volume loss with prominent ventricles and sulci. T2/flair hyperintensity in the periventricular and subcortical white matter likely reflects chronic small vessel disease. No hemorrhage. No acute infarct. Ventricles: See above. Bones/joints: Unremarkable. Sinuses: Unremarkable as visualized. No acute sinusitis. Mastoid air cells: Unremarkable as visualized. No mastoid effusion. Orbits: Unremarkable as visualized. IMPRESSION: No acute findings in the head/brain. Electronically signed by: Edwin Ochoa M.D. 02/26/23 02:59 AM Hospital Course (1) TIA (transient ischemic attack): (2) Arm paresthesia, right: 77-year-old female with a history of cognitive decline, some memory loss, GERD, urinary urge incontinence who presents with 2 episodes of right arm numbness/tingling and associated lightheadedness and "wobbliness ". She was admitted for stroek evaluation. #TIA - presented with 2 episodes of R sided weakness lasting about 15 minutes each. Patient prodrome started with numbness/tingling in the right arm only which extended up to the shoulder and then was associated with some lightheadedness without room spinning and without syncope. Symptoms resolved by time of ER evaluation. - CThead: No acute findings reported. ?Right posterior density abnormality on image 03/04 and series, this was discussed with radiology and thought to be due to tilt of patient at time of exam. - Head/neck CTA: No occlusion, hemodynamically significant stenosis, or d issection in the major cervical/intracranial arteries. - Chest x-ray: No acute findings - EKG on admission: Normal sinus rhythm, rate 74, QTc 461, no ST segment changes or T wave inversions - Echo: EF 60-65%, normal wall motion, no interarterial shunt - MRI without evidence for stroke - A1c: 5.8, LDL 95. - Unclear etiology for TIA. Consider microvascular vs cardioembolic origin. - ordered 30 day event monitor in the outpatient setting to r/o cardioembolic origin - start daily 40mg atorvastatin and 81mg aspirin - f/u pcp and neurologist #Urinary incontinence Continue oxybutynin #Chronic dementia, memory loss Continue donepezil. This was recently started for dementia; ?dizziness/headache 2/2 medication adverse effect. #Anxiety/depression Continue Lexapro (3) Dementia: (4) Gastroparesis: (5) Overactive bladder: (6) GERD without esophagitis: Total Time Total Time Spent Total Time Spent (In Minutes): <30 Discharge Plan Discharge Items Patient Disposition: Home - Self-Care Reason For Visit: RUE WEAKNESS, CVA EVAL Discharge Diagnosis: TIA Activity: Per Instructions section Non-emergency contact: Primary Care Provider and Neurologist Call non-emergency contact if: you have any medication questions Follow-up/Referrals: Kenny Heath MD [Physician] - Abigail Humphrey MD [Primary Care Provider] - 02/28/23 11:00 am (Follow up visit with Cony Ireland February 28 @11:00) Diet: Regular Addtl Attending Provider Instructions: You were admitted to the hospital for right-sided weakness and ultimately diagnosed with a transient ischemic attack or otherwise known as a TIA. This is classified as a stroke however that is short-lived and cannot be seen on any imaging including a CT and MRI of your brain. It is unclear the exact nature of why your stroke occurred however we will further investigate for a cause and al so put you on some medications to help prevent this in the future. Although your cholesterol panel was not very elevated, we do want to place you on a statin also known as atorvastatin to help reduce your chance of a future stroke. We will start you on atorvastatin 40 mg daily going forward this prescription has been sent to your pharmacy. You will also be started on a daily 81mg aspirin again to help prevent future stroke. Aspirin is readily available [id number]. To make sure that the stroke did not originate from the heart, we do want to place you on a 30-day event monitor which will look for things such as atrial fibrillation and other potential causes of your stroke. You will receive further instructions on obtaining this device upon discharge. Going forward you do already see a neurologist for your dementia so it would be a good idea to follow-up with him to discuss stroke prevention as well. You should also f/u with your PCP. Pending Studies at Discharge: No Stand-Alone Forms: [facility] [employer], Smoking Cessation, Medications to Prevent Stroke Medications and DC Order Prescriptions: New atorvastatin 40 mg Tablet 40 mg PO QAM Qty: 30 0RF aspirin 81 mg Tablet,Delayed Release (Dr/Ec) 81 mg PO QAM Qty: 30 0RF Continued oxybutynin chloride 5 mg tablet extended release 24hr 5 mg PO DAILY Qty: 90 1RF ondansetron HCl 4 mg tablet 4 mg PO Q8H PRN (Reason: nausea and vomiting) Qty: 90 2RF calcium carbonate [Calcium 600] 600 mg calcium (1,500 mg) tablet 600 mg PO QAM cholecalciferol (vitamin D3) 25 mcg (1,000 unit) capsule 1,000 units PO QAM donepezil 5 mg tablet 5 mg PO HS Qty: 30 5RF omeprazole 40 mg capsule,delayed release(DR/EC) 40 mg PO DAILY Qty: 90 1RF multivitamin with minerals [Hair,Skin and Nails] Tablet 1 tab PO QAM triamcinolone acetonide [Nasacort] 55 mcg aerosol,spray 1 spray intranasal DAILY Qty: 16.9 0RF Rx Instructions: administer into each nostril escitalopram oxalate 10 mg tablet 15 mg PO HS Discharge Orders: Discharge Order (Routine); Ordered 02/26/23 Ordered By: Yfn Marte Admission Data Admit Date/Time: 02/25/23 16:17 Attending Provider: Frank Fong Admit Provider: Kris Knott Primary Care Provider: Abigail Humphrey V. Other Providers: Kris Knott Other Interventions: Discharge Summary Assessment (RN) Last Done: 02/26/23 14:47 Supervising Physician Co-Signing Physician Notes I personally examined the patient and verified all meeks points of history and exam, discussed case, and agree with decision making with Dr Marte Feeling better. Discussed TIA working diagnosis. Vitals noted, in general she is awake and alert pleasant no distress. HEENT normocephalic atraumatic mucous membranes moist. Breathing unlabored no accessory muscle use good effort. Skin shows no rashes no pallor or icterus. Neuro without focal deficits at this time.CBC, lipids, A1c, MRI, carotids reviewed TIAsmall vessel versus central embolic. No evidence of central embolic at this time, but given that she is not overly high risk for intracranial atherosc lerosisoutpatient event monitoring (asked navigator to help set up). Antiplatelet and statin for now, outpatient follow-up. Resident Activity Tracking Resident Involvement: Resident Care Provided Care Provided: Adult Hospital Medicine
[2023-02-26] MEDS ORDERED: STROKE PATIENT DISCHARGE STA (13:47)
--- NOTE | 2023-02-26 14:00 | Pharmacy Report ---
- Date of Service February 26, 2023 - Pharmacy CVA/TIA Medication Review Medications to Prevent Stroke handout has been added to the patients discharge packet. Antiplatelet(s) * aspirin 81 mg daily Cholesterol * High intensity statin: atorvastatin 40 mg daily DVT Prophylaxis * Patient discharged Therapeutic Anticoagulation * No history of Afib/Aflutter noted Type 2 Diabetes * Patient does not have T2DM
[2023-02-26] MEDS ORDERED: ENOXAPARIN INJ 40 MG/0.4 ML SYR SQ SCH (16:30)
--- NOTE | 2023-02-26 18:40 | Billing Data ---
Date of Service February 26, 2023 Coding Level of Care Code 51641 IN/OBS DISCH 30 MIN/LESS
--- NOTE | 2023-02-26 18:41 | Billing Data ---
Date of Service February 26, 2023 Coding Level of Care Code 29890 IN/OBS DISCH 30 MIN/LESS
--- NOTE | 2023-02-27 14:42 | Pharmacy Report ---
Pharmacist Stroke Counseling - Date of Service February 27, 2023 - Scope: Pharmacy has been consulted to provide medication discharge counseling for this patient admitted with transient ischemic attack as per the Pharmacist Discharge Counseling for Stroke Patients Protocol. - Medications on Discharge: Home Medications Medication Instructions Recorded Confirmed calcium carbonate 600 mg calcium 600 mg PO QAM 11/24/19 02/27/23 (1,500 mg) tablet (Calcium) cholecalciferol (vitamin D3) 25 1,000 units PO QAM 02/17/20 02/27/23 mcg (1,000 unit) capsule multivitamin with minerals 1 tab PO QAM 01/17/21 02/27/23 (Hair,Skin and Nails tablet) escitalopram oxalate 10 mg tablet 15 mg PO HS 11/22/22 02/27/23 Medication Instructions Recorded triamcinolone acetonide 55 mcg 1 spray intranasal DAILY #16.9 mL 08/16/22 nasal spray aerosol (Nasacort) oxybutynin chloride 5 mg 5 mg PO DAILY #90 tabs 01/02/23 tablet,extended release 24 hr donepezil 5 mg tablet 5 mg PO HS #30 tabs 02/15/23 omeprazole 40 mg capsule,delayed 40 mg PO DAILY #90 caps 02/21/23 release aspirin 81 mg tablet,delayed 81 mg PO QAM #30 tabs 02/26/23 release atorvastatin 40 mg tablet 40 mg PO QAM #30 tabs 02/26/23 ondansetron HCl 4 mg tablet 4 mg PO Q8H PRN nausea and 02/26/23 vomiting #90 tabs - Action: The above medications, specifically ones for stroke treatment/prophylaxis, have been reviewed in detail with the patient and/or patient call center representative(s) prior to discharge. This includes indication, common adverse reactions, drug interactions, and medication administration. Medication counseling has been employed using the teach-back method to ensure understanding. - Outcome: The patient and/or patient call center representative(s) have demonstrated understanding of the medications. Additional comments: Spoke with patient over phone and reviewed all medications. She is aware to bring her list of medications with her tomorrow to her doctor's appt. No questions/concerns from patient. Thank you for allowing pharmacy to be involved in the care of this patient. Please call [phone] with any additional questions
== END 2023-02-26 15:33 | disposition home or self-care (01) ==
LOC: 2W 13:07 → ED 13:07 → SUATTDRO 16:17 → 2W 20:13

== ENCOUNTER 2023-08-13 14:51 | Inpatient (IN) ==
--- NOTE | 2023-08-13 15:53 | Emergency Department Note ---
Impression & Plan Altered mental state ED Provider Note NAME: JUAN REIS AGE: 78 SEX: F : 1945 ARRIVES VIA: Ambulance INFORMANT: Patient, ED PROVIDER(S): Marcello Heller MD CHIEF COMPLAINT: Altered mental status HPI: This is 78-year-old female with history of TIA, GERD, anxiety presenting for altered mental status. Patient is coming by her and states that today he was unable to get into the room and notes that the door was locked. He then went around and saw that his was on the ground. He was able to get into the room and found her confused on the ground. She states she was "trying to get something off the ground "but could not tell him what it was. She does not member at this time. She otherwise can answer basic questions about what happened today. states that symptoms have been getting worse over the past few weeks. Having increasing memory loss, difficulty finding words. At this time is not oriented to time. Patient unsure if she hit her head during the fall today. ROS: Unable to obtain PAST MEDICAL HISTORY: See Below PAST SURGICAL HISTORY: See Below FAMILY HISTORY: See Below SOCIAL HISTORY: See Below HOME MEDICATIONS: See Below ALLERGIES: See Below VITALS: See Below PHYSICAL EXAMINATION: General: resting comfortably in no acute distress Head: Normocephalic and atraumatic Eyes: Normal inspection, extraocular muscles intact, no conjunctival pallor Ear, nose, throat: Normal external exam Neck: Normal range of motion Respiratory: Patient is in no respiratory distress, lungs clear to auscultation bilaterally Cardiovascular: RRR without murmur appreciated GI: soft, nontender, no guarding or rebound Extremities: pulses intact with good cap refills, no LE pitting edema or calf tenderness Neuro: Awake, oriented to person and place but not time, moves all extremities Skin: Warm, dry, and intact MEDICAL DECISION MAKING: This is a 78-year-old female with history of TIA and GERD presenting for altered mental status. Patient unable to do complete neuro exam, cranial nerves appear intact but patient unable to do dysmetria due to ambulate understand the task. Otherwise she does appear altered, stops answering questions. She is able to answer what specific R but cannot answer what happened today. She has not had fevers, chills as per her . patient blood was reviewed showing no significant abnormalities. She does have a transaminitis however of unclear etiology. Her CK is slightly elevated at 231. Otherwise negative troponin. Negative UTI. Negative COVID-19. Patient head CT reveals Triage Nursing notes reviewed. Prior medical records reviewed Vital Signs: reviewed and remarkable for no significant abnormalities Differential diagnosis: UTI, dementia, stroke ER treatment provided: See below Diagnostics interpreted by me: ECG: ECG independently interpreted by me with normal sinus rhythm, rate of 76, normal axis, normal VA, normal QRS, normal QTc, no ST segment elevations consistent with STEMI criteria Cardiac Monitoring: An order was placed for continuous cardiac monitoring. The monitor shows a rate of 62 with sinus rhythm Laboratory studies: As stated above and show below. Imaging studies: See below. Radiographic imaging was reviewed by myself Consultation(s): None Past Med/Surg History Medical History Adjustment disorder with depressed mood Anxiety Arm paresthesia, right Cognitive and behavioral changes Cyst of kidney, acquired DDD (degenerative disc disease) Dizziness GERD without esophagitis History of osteonecrosis HTN (hypertension) Left arm numbness Nausea Osteoporosis Scoliosis Signs and symptoms involving cognition SOBOE (shortness of breath on exertion) Weakness Surgical History History of cataract surgery History of esophagogastroduodenoscopy (EGD) History of tooth extraction Hx of colonoscopy S/P tubal ligation Family History Mother Lymphoma Hypertension Grandmother (Paternal) Breast cancer Grandfather (Maternal) Colorectal cancer Father Dementia Stroke Brother Lung cancer Stroke Other No family history of adverse response to anesthesia Denies family history of Ovarian cancer Prostate cancer Myocardial infarction Social History Smoking Status: Unknown if ever smoked Second Hand Exposure: Yes (Brother, ); Do You Dip or Chew Tobacco: No; Hx Alcohol Use: Yes Hx Substance Use: No Preferred Language: Tamaz[place] Communication Ability: Effective Visual Impairment: No Limitations Hearing Ability: Normal Talent Manager Required: No Beliefs That Will Affect Care: None marital status: Current Living Situation: Spouse Feels Safe at Home: Yes Seatbelt Use: always Assistive Devices: Denture - Lower and Glasses Allergies Allergies Allergy/AdvReac Type Severity Reaction Status Date / Time Sulfa (Sulfonamide Allergy Intermediate HIVES Verified 08/13/23 17:43 Antibiotics) Penicillins Allergy Mild RASH Verified 08/13/23 17:43 doxycycline AdvReac Nausea and Verified 08/13/23 17:43 vomiting Home Meds Home Medications Medication Instructions Recorded Confirmed calcium carbonate 600 mg calcium 600 mg PO QAM 11/24/19 08/13/23 (1,500 mg) tablet (Calcium) cholecalciferol (vitamin D3) 25 1,000 units PO QAM 02/17/20 08/13/23 mcg (1,000 unit) capsule multivitamin with minerals 1 tab PO QAM 01/17/21 08/13/23 (Hair,Skin and Nails tablet) memantine 5 mg tablet 5 mg PO BID 08/13/23 08/13/23 Previous Rx's Medication Instructions Recorded aspirin 81 mg tablet,delayed 81 mg PO QAM #30 tabs 02/26/23 release ondansetron HCl 4 mg tablet 4 mg PO Q8H PRN nausea and 02/26/23 vomiting #90 tabs atorvastatin 40 mg tablet 40 mg PO QAM #90 tabs 03/23/23 escitalopram oxalate 10 mg tablet 15 mg (1.5 x 10 mg) PO HS #135 tabs 04/13/23 trospium 20 mg tablet 20 mg PO BID #60 tabs 08/02/23 Results & Data (ED) Vital Signs Vital Signs - 24 hr 08/13/23 15:23 08/13/23 15:26 08/13/23 15:36 Temperature 36.5 C Temperature Source Oral Pulse Rate 79 Pulse Rate [Bilateral] 79 Respiratory Rate 22 Respiratory Depth Normal Blood Pressure Blood Pressure [Right Arm] 174/98 H Blood Pressure Mean Blood Pressure Mean [Right Arm] 123 Pulse Oximetry 99 98 Oxygen Delivery Method Room Air Room Air Sepsis Recent Fever Within 48 Hours Sepsis New/Unexplained Change in Mental Status Sepsis Action Taken by Nursing 08/13/23 15:38 08/13/23 15:43 08/13/23 17:00 Temperature 36.5 C Temperature Source Oral Pulse Rate 79 Pulse Rate [Bilateral] 62 Respiratory Rate 22 18 Respiratory Depth Blood Pressure 174/98 H Blood Pressure [Right Arm] 134/84 Blood Pressure Mean 123 Blood Pressure Mean [Right Arm] 100 Pulse Oximetry 99 98 98 Oxygen Delivery Method Room Air Room Air Sepsis Recent Fever Within 48 Hours No Sepsis New/Unexplained Change in Mental Status N/A Sepsis Action Taken by Nursing No Action Required 08/13/23 19:00 Temperature Temperature Source Pulse Rate Pulse Rate [Bilateral] 102 H Respiratory Rate 18 Respiratory Depth Blood Pressure Blood Pressure [Right Arm] 164/99 H Blood Pressure Mean Blood Pressure Mean [Right Arm] 120 Pulse Oximetry 94 Oxygen Delivery Method Room Air Sepsis Recent Fever Within 48 Hours Sepsis New/Unexplained Change in Mental Status Sepsis Action Taken by Nursing Laboratory Data 08/13/23 15:15 08/13/23 15:15 Lab Results 08/13/23 08/13/23 08/13/23 Range/Units 15:15 15:30 17:30 WBC 5.57 (4.8-10.8) K/ul RBC 4.27 (4.20-5.40) M/uL Hgb 13.5 (12.0-16.0) g/dl Hct 40.5 (37.0-47.0) % MCV 94.8 (80.0-100.0) fL MCH 31.6 (25.0-34.0) pg MCHC 33.3 (32.0-36.0) g/dL RDW Std Deviation 43.9 (36.4-46.3) fL RDW Coeff of Sameera 12.8 (11.5-14.5) % Plt Count 224 (130-400) K/uL MPV 10.3 (9.4-12.4) fL Immature Gran % (Auto) 0.4 % Neut % (Auto) 68.1 % Lymph % (Auto) 21.4 % [place] % (Auto) 8.3 % Eos % (Auto) 1.4 % Baso % (Auto) 0.4 % Neut # (Auto) 3.80 (1.40-6.50) K/uL Lymph # (Auto) 1.19 L (1.20-3.40) K/uL [place] # (Auto) 0.46 (0.11-0.59) K/uL Eos # (Auto) 0.08 (0.00-0.50) K/uL Baso # (Auto) 0.02 (0.00-0.20) K/uL Immature Gran # (Auto) 0.02 (0.01-0.20) K/uL Sodium 134 L (136-145) mmol/L Potassium 3.8 (3.5-5.1) mmol/L Chloride 100 (98-107) mmol/L Carbon Dioxide 29 (21-32) mmol/L Anion Gap 5 (3-11) BUN 12 (6-23) mg/dl Creatinine 0.86 (0.6-1.2) mg/dl Est Cr Clr Drug Dosing 43.3 ml/min Est GFR ( Amer) 75.5 ml/min Est GFR (Non-Af Amer) 65.2 ml/min BUN/Creatinine Ratio 14.0 (10-20) Glucose 90 (70-99(Fasting)) mg/dl Lactate 0.8 (0.4-2.0) mmol/L Calcium 9.0 (8.6-10.3) mg/dl Magnesium 2.2 (1.7-2.4) mg/dl Total Bilirubin 0.7 (0.2-1.0) mg/dl AST 63 H (13-39) U/L ALT 57 H (7-52) U/L Alkaline Phosphatase 172 H (34-104) U/L Ammonia (18-72) umol/L Total Creatine Kinase (26-192) U/L Troponin I High Sens 6.0 (0-14) pg/ml Total Protein 7.5 (6.0-8.3) gm/dl Albumin 4.3 (3.4-5.0) gm/dl Globulin 3.2 (2.5-4.0) gm/dl Albumin/Globulin Ratio 1.3 (0.9-2) Urine Color Yellow Urine Appearance Clear (Clear) Urine pH 8.5 H (4.5-7.5) Ur Specific [place] 1.016 (1.000-1.030) Urine Protein Negative (Negative) Urine Glucose (UA) Negative (Negative) Urine Ketones Negative (Negative) Urine Blood Negative (Negative) Urine Nitrite Negative (Negative) Urine Bilirubin Negative (Negative) Urine Urobilinogen Negative (Negative) Ur Leukocyte Esterase Negative (Negative) SARS-CoV-2 (PCR) (Negative) Influenza Type A (PCR) (Neg) Influenza Type B (PCR) (Neg) RSV (RT-PCR) (Neg) 08/13/23 08/13/23 Range/Units 17:35 19:03 WBC (4.8-10.8) K/ul RBC (4.20-5.40) M/uL Hgb (12.0-16.0) g/dl Hct (37.0-47.0) % MCV (80.0-100.0) fL MCH (25.0-34.0) pg MCHC (32.0-36.0) g/dL RDW Std Deviation (36.4-46.3) fL RDW Coeff of Sameera (11.5-14.5) % Plt Count (130-400) K/uL MPV (9.4-12.4) fL Immature Gran % (Auto) % Neut % (Auto) % Lymph % (Auto) % [place] % (Auto) % Eos % (Auto) % Baso % (Auto) % Neut # (Auto) (1.40-6.50) K/uL Lymph # (Auto) (1.20-3.40) K/uL [place] # (Auto) (0.11-0.59) K/uL Eos # (Auto) (0.00-0.50) K/uL Baso # (Auto) (0.00-0.20) K/uL Immature Gran # (Auto) (0.01-0.20) K/uL Sodium (136-145) mmol/L Potassium (3.5-5.1) mmol/L Chloride (98-107) mmol/L Carbon Dioxide (21-32) mmol/L Anion Gap (3-11) BUN (6-23) mg/dl Creatinine (0.6-1.2) mg/dl Est Cr Clr Drug Dosing ml/min Est GFR ( Amer) ml/min Est GFR (Non-Af Amer) ml/min BUN/Creatinine Ratio (10-20) Glucose (70-99(Fasting)) mg/dl Lactate (0.4-2.0) mmol/L Calcium (8.6-10.3) mg/dl Magnesium (1.7-2.4) mg/dl Total Bilirubin (0.2-1.0) mg/dl AST (13-39) U/L ALT (7-52) U/L Alkaline Phosphatase (34-104) U/L Ammonia 20.0 (18-72) umol/L Total Creatine Kinase 231 H (26-192) U/L Troponin I High Sens (0-14) pg/ml Total Protein (6.0-8.3) gm/dl Albumin (3.4-5.0) gm/dl Globulin (2.5-4.0) gm/dl Albumin/Globulin Ratio (0.9-2) Urine Color Urine Appearance (Clear) Urine pH (4.5-7.5) Ur Specific [place] (1.000-1.030) Urine Protein (Negative) Urine Glucose (UA) (Negative) Urine Ketones (Negative) Urine Blood (Negative) Urine Nitrite (Negative) Urine Bilirubin (Negative) Urine Urobilinogen (Negative) Ur Leukocyte Esterase (Negative) SARS-CoV-2 (PCR) NEGATIVE (Negative) Influenza Type A (PCR) Negative (Neg) Influenza Type B (PCR) Negative (Neg) RSV (RT-PCR) Negative (Neg) Administered Medications Enoxaparin Sodium (Enoxaparin Inj 40 Mg/0.4 Ml Syr) 40 mg SQ Q24H CHARISSE Stop: 09/12/23 21:59 Last Admin: 08/13/23 22:35 Dose: Not Given Documented By: MADDY Escitalopram Oxalate (Escitalopram Oxalate 10 Mg Tab) 15 mg PO HS CHARISSE Stop: 09/12/23 21:17 Last Admin: 08/13/23 22:34 Dose: 15 mg Documented By: MADDY Memantine (Memantine Hcl 5 Mg Tab) 5 mg PO BID CHARISSE Stop: 09/12/23 21:17 Last Admin: 08/13/23 22:34 Dose: 5 mg Documented By: MADDY Imaging Data Radiologist's Impression: Chest X-Ray 08/13/23 15:26 XR chest 1V portable HISTORY: 78 years-old Female weakness COMPARISON: 02/25/2023 TECHNIQUE: AP view of the chest FINDINGS: Cardiomediastinal and hilar silhouettes are within normal limits. No pneumothorax, pleural effusion or airspace consolidation. The bones appear grossly intact. IMPRESSION: No acute process. ACT 112: Negative or not required by law. The above report was generated using voice recognition software. It may contain grammatical, syntax or spelling errors. Electronically signed by: Rigo Honeycutt M.D. 08/13/2023 4:[address] 08/13/23 15:53 CT SCAN OF THE BRAIN WITHOUT IV CONTRAST CLINICAL HISTORY: Change in mental status. COMPARISON STUDY: CT of the brain dated 02/25/2023. MRI of the brain dated 02/26/2023. TECHNIQUE: Unenhanced axial CT scan of the brain is performed from the vertex to the skull base. A dose lowering technique was utilized adhering to the principles of ALARA. CT DOSE: 625.8 mGy.cm FINDINGS: Brain parenchyma: There is age-related involutional change noting moderate to advanced confluent subcortical and periventricular microangiopathic disease. There is no hemorrhage, mass effect, or evidence of acute territorial ischemia by CT criteria. Skinner-white matter differentiation is preserved. No extra-axial fluid collection is seen. Ventricles, sulci, cisterns: Prominent secondary to involutional change. Intracranial vasculature: There is atherosclerotic calcification of the cavernous carotid arteries. Calvarium: Unremarkable. Sinuses and mastoids: The visualized paranasal sinuses are clear. The mastoid air cells are well pneumatized. Orbits: The bony orbits are grossly intact. IMPRESSION: There is no hemorrhage, mass effect, or evidence of acute territorial ischemia by CT criteria. ACT 112: Negative or not required by law. Electronically signed by: Osmar Altamirano M.D. 08/13/2023 5:01 PM Discharge Plan Visit Data Chief Complaint: Altered Mental Status Stated Complaint: [facility] ED Provider: Marcello Heller Discharge Problem: Altered mental state Patient Disposition: Admitted As Inpatient Discharge Instructions Interventions: ED Discharge Assessment Last Done: 08/13/23 21:17
--- NOTE | 2023-08-13 15:56 | Electrocardiogram Report ---
Test Reason : Blood Pressure : / mmHG Vent. Rate : 076 BPM Atrial Rate : 076 BPM P-R Int : 142 ms QRS Dur : 070 ms QT Int : 412 ms P-R-T Axes : 026 000 018 degrees QTc Int : 463 ms Normal sinus rhythm Low voltage QRS Borderline ECG When compared with ECG of 25-FEB-2023 13:37, No significant change was found Confirmed by Dick Beltrán ([id number]) on 08/13/2023 3:56:29 PM Referred By: Confirmed By:Dick Beltrán
[2023-08-13 15:58] LABS: Albumin Globulin Ratio 1.3 (0.9-2); Albumin Level 4.3 gm/dl (3.4-5.0); Bilirubin,Total 0.7 mg/dl (0.2-1.0); Creatinine Clr Calc Pharmacy 43.3 ml/min; Est GFR (African American) 75.5 ml/min; Est GFR (Non-African American) 65.2 ml/min; Globulin 3.2 gm/dl (2.5-4.0); Magnesium 2.2 mg/dl (1.7-2.4); Potassium 3.8 mmol/L (3.5-5.1); Total Protein 7.5 gm/dl (6.0-8.3)
[2023-08-13 15:59] LABS: Basophils # (auto) 0.02 K/uL (0.00-0.20); Basophils % (auto) 0.4 %; Eosinophils # (auto) 0.08 K/uL (0.00-0.50); Eosinophils % (auto) 1.4 %; Hematocrit (blood only) 40.5 % (37.0-47.0); Hemoglobin 13.5 g/dl (12.0-16.0); Immature Granulocytes # (auto) 0.02 K/uL (0.01-0.20); Immature Granulocytes % (auto) 0.4 %; Lymphocytes # (auto) 1.19 K/uL (1.20-3.40); Lymphocytes % (auto) 21.4 %; Mean Corpuscular Hemoglobin 31.6 pg (25.0-34.0); Mean Corpuscular Hgb Conc 33.3 g/dL (32.0-36.0); Mean Corpuscular Volume 94.8 fL (80.0-100.0); Mean Platelet Volume 10.3 fL (9.4-12.4); Monocytes # (auto) 0.46 K/uL (0.11-0.59); Monocytes % (auto) 8.3 %; Neutrophils % (auto) 68.1 %; Platelet Count 224 K/uL (130-400); RDW Coefficient of Variation 12.8 % (11.5-14.5); RDW Standard Deviation 43.9 fL (36.4-46.3); Red Blood Count 4.27 M/uL (4.20-5.40); White Blood Count 5.57 K/ul (4.8-10.8)
--- NOTE | 2023-08-13 16:27 | XRay Report ---
XR chest 1V portable HISTORY: 78 years-old Female weakness COMPARISON: 02/25/2023 TECHNIQUE: AP view of the chest FINDINGS: Cardiomediastinal and hilar silhouettes are within normal limits. No pneumothorax, pleural effusion o r airspace consolidation. The bones appear grossly intact. IMPRESSION: No acute process. ACT 112: Negative or not required by law. The above report was generated using voice recognition software. It may contain grammatical, syntax o r spelling errors. Electronically signed by: Rigo Honeycutt M.D. 08/13/2023 4:26 PM
--- NOTE | 2023-08-13 17:03 | CT Scan Report ---
CT SCAN OF THE BRAIN WITHOUT IV CONTRAST CLINICAL HISTORY: Change in mental status. COMPARISON STUDY: CT of the brain dated 02/25/2023. MRI of the brain dated 02/26/2023. TECHNIQUE: Unenhanced axial CT scan of the brain is performed from the vertex to the skull base. A do se lowering technique was utilized adhering to the principles of ALARA. CT DOSE: 625.8 mGy.cm FINDINGS: Brain parenchyma: There is age-related involutional change noting moderate to advanced confluent subc ortical and periventricular microangiopathic disease. There is no hemorrhage, mass effect, or evidenc e of acute territorial ischemia by CT criteria. Skinner-white matter differentiation is preserved. No ex tra-axial fluid collection is seen. Ventricles, sulci, cisterns: Prominent secondary to involutional change. Intracranial vasculature: There is atherosclerotic calcification of the cavernous carotid arteries. Calvarium: Unremarkable. Sinuses and mastoids: The visualized paranasal sinuses are clear. The mastoid air cells are well pneu matized. Orbits: The bony orbits are grossly intact. IMPRESSION: There is no hemorrhage, mass effect, or evidence of acute territorial ischemia by CT ayush acosta. ACT 112: Negative or not required by law. Electronically signed by: Osmar Altamirano M.D. 08/13/2023 5:01 PM
[2023-08-13 17:47] LABS: Appearance Urine Clear (Clear); Bilirubin Urine Negative (Negative); Blood Urine Negative (Negative); Color Urine Yellow; Glucose Urine UA Negative (Negative); Ketones Urine Negative (Negative); Leukocyte Esterase Urine Negative (Negative); Nitrite Urine Negative (Negative); Protein Urine Negative (Negative); Specific Gravity Urine 1.016 (1.000-1.030); Urobilinogen Urine Negative (Negative); pH Urine 8.5 (4.5-7.5)
[2023-08-13 18:36] LABS: Influenza A virus by PCR Negative (Neg); Influenza B virus by PCR Negative (Neg); RSV by PCR Negative (Neg); SARS CoV2 RNA(COVID-19) Ceph NEGATIVE (Negative)
--- NOTE | 2023-08-13 19:11 | History & Physical Report ---
Date of Service August 13, 2023 Assessment & Plan (1) Stroke-like symptoms: Plan: Clinically, acute change in mental status on 08/13 Hx of underlying cognitive decline Hx of potential TIA in February 2023 Patient's (Gurmeet) noted mumbling, incoherent speech, inability to stand on 08/[address] without hemorrhage, mass effect or evidence of acute territorial ischemia UA negative Flu, COVID, RSV negative EKG NSR Glucose 90 Elevated transaminases; patient's denies hx of liver problems Brain MRI ordered; however, patient was not taken to MRI as she was reportedly "unable to sit still"; will avoid taking her at night to avoid increased confusion; reevaluate in the morning Permissive HTN in the setting of strokelike symptoms Fall precaution Dysphagia screen pending Aspirin 324 mg p.o. given in the ED Continue aspirin daily (2) Dementia: Plan: Continue amantadine (3) Dry mouth: (4) Elevated transaminase level: (5) GERD without esophagitis: Plan [facility]: [facility] diet (following dysphagia screen) Full code VTE PPx: TEDs, Lovenox 40 mg SQ q24h History of Present Illness Chief Complaint: Altered mental status Primary Care Provider: Abigail Humphrey MD Marlene is a 78yo female with PMH of cognitive decline, GERD, urinary incontinence, possible TIA. She presented via EMS for AMS x1 day. At around 1230 on 08/13, patient's (Gurmeet) came inside and found her laying prone on the bedroom floor, looking under the bed for something. When he went to get her up, she was unable to stand on her own, and was "chattering gibberish", and was unable to answer him. He denies seeing facial droop, but notes that she had trouble standing when she had a "mini stroke" in February 2023. Per patient's , today was an acute change from her cognitive baseline. Patient is a poor historian, but denies falling. She further denies head, neck, or shoulder pain. Patient also did not take her medications this morning, which had laid out for her; no aspirin or memantine. Per , cognitive decline has been ongoing over the past couple years. She has had ongoing LE weakness; worked PT/OT over the summer; walker at baseline. FMHx: patient's father from a stroke. Patient's denies history of liver issues, seizures, or recent fevers/infections patient is hypertensive at 180/100 on admission; vitals otherwise stable. ROS: Patient is a questionable historian, but denies recent falls, fevers, chills, facial droop, CP, pleuritic CP, SOB, abdominal pain, or urinary symptoms. Allergies Allergy/AdvReac Type Severity Reaction Status Date / Time Sulfa (Sulfonamide Allergy Intermediate HIVES Verified 08/13/23 17:43 Antibiotics) Penicillins Allergy Mild RASH Verified 08/13/23 17:43 doxycycline AdvReac Nausea and Verified 08/13/23 17:43 vomiting Home Medications Medication Instructions Recorded Confirmed Type calcium carbonate 600 mg calcium 600 mg PO QAM 11/24/19 08/13/23 History (1,500 mg) tablet (Calcium) cholecalciferol (vitamin D3) 25 1,000 units PO QAM 02/17/20 08/13/23 History mcg (1,000 unit) capsule multivitamin with minerals 1 tab PO QAM 01/17/21 08/13/23 History (Hair,Skin and Nails tablet) aspirin 81 mg tablet,delayed 81 mg PO QAM #30 tabs 02/26/23 08/13/23 Rx release ondansetron HCl 4 mg tablet 4 mg PO Q8H PRN nausea and 02/26/23 08/13/23 Rx vomiting #90 tabs atorvastatin 40 mg tablet 40 mg PO QAM #90 tabs 03/23/23 08/13/23 Rx escitalopram oxalate 10 mg tablet 15 mg (1.5 x 10 mg) PO HS #135 tabs 04/13/23 08/13/23 Rx trospium 20 mg tablet 20 mg PO BID #60 tabs 08/02/23 08/13/23 Rx memantine 5 mg tablet 5 mg PO BID 08/13/23 08/13/23 History Past Med/Surg History Medical History Adjustment disorder with depressed mood Anxiety Arm paresthesia, right Cognitive and behavioral changes Cyst of kidney, acquired DDD (degenerative disc disease) Dizziness GERD without esophagitis History of osteonecrosis HTN (hypertension) Left arm numbness Nausea Osteoporosis Scoliosis Signs and symptoms involving cognition SOBOE (shortness of breath on exertion) Weakness Surgical History History of cataract surgery History of esophagogastroduodenoscopy (EGD) History of tooth extraction Hx of colonoscopy S/P tubal ligation Family History Mother Lymphoma Hypertension Grandmother (Paternal) Breast cancer Grandfather (Maternal) Colorectal cancer Father Dementia Stroke Brother Lung cancer Stroke Other No family history of adverse response to anesthesia Denies family history of Ovarian cancer Prostate cancer Myocardial infarction Social History Smoking Status: Unknown if ever smoked Second Hand Exposure: Yes (Brother, ); Do You Dip or Chew Tobacco: No; Hx Alcohol Use: Yes Hx Substance Use: No Preferred Language: Djib[place]ian Communication Ability: Effective Visual Impairment: No Limitations Hearing Ability: Normal Rare/Endangered Species Specialist Required: No Beliefs That Will Affect Care: None marital status: Current Living Situation: Spouse Feels Safe at Home: Yes Seatbelt Use: always Assistive Devices: Denture - Lower and Glasses Review of Systems Review of Systems: See HPI above Physical Exam Physical Exam: General: no acute distress; non-toxic appearing; cooperative HEENT: normocephalic, atraumatic; no scleral icterus; PERRLA w/ EOMs intact; dry mucus membrane; vision and hearing intact Neck: supple; no lymphadenopathy; trachea midline Skin: warm, dry without signs of tenting; no cyanosis; no rashes, brusing, lesions, or erythema noted CV: chest wall NTP; RRR; S1/S2 normal; no murmurs/rubs/gallops; pulses intact and symmetric at radial, DP, and PT Lungs: no acute respiratory distress; symmetrical chest wall expansion; clear breath sounds across all lung nathan w/o adventitious sounds; no wheezing ABD: Soft, NTP; BS present; no rebound/guarding; no ascites; no distention; negative CVA tenderness MSK: no tics or fasciculations; no edema noted in the LEs b/l; whizzer strength +5/5 b/l; active ROM in LEs Neuro: Oriented to name; not oriented to birthday, location, or time; normal mood and affect; speech is incoherent and suggestive of underlying progressive a phasia; patient is unable to confirm or deny if facial sensations are even, symmetrical; patient demonstrates the ability to shrug, wiggle tongue side to side, smile/frown; negative facial droop Results & Data Results & Data Vital Signs (Past 12 Hours) Vital Signs Temp Pulse Pulse Resp BP BP Pulse Ox 08/13/23 17:00 62 18 134/84 98 08/13/23 15:43 36.5 C 79 22 174/98 H 98 08/13/23 15:38 99 08/13/23 15:36 36.5 C 79 22 174/98 H 98 08/13/23 15:26 99 08/13/23 15:23 79 O2 Del Method 08/13/23 17:00 08/13/23 15:43 Room Air 08/13/23 15:38 Room Air 08/13/23 15:36 Room Air 08/13/23 15:26 Room Air 08/13/23 15:23 Laboratory Results Abnormal lab results 08/13/23 08/13/23 Range/Units 15:15 17:30 Lymph # (Auto) 1.19 L (1.20-3.40) K/uL Sodium 134 L (136-145) mmol/L AST 63 H (13-39) U/L ALT 57 H (7-52) U/L Alkaline Phosphatase 172 H (34-104) U/L Urine pH 8.5 H (4.5-7.5) Diagnostic Findings Chest X-Ray 08/13/23 15:26 XR chest 1V portable HISTORY: 78 years-old Female weakness COMPARISON: 02/25/2023 TECHNIQUE: AP view of the chest FINDINGS: Cardiomediastinal and hilar silhouettes are within normal limits. No pneumothorax, pleural effusion or airspace consolidation. The bones appear grossly intact. IMPRESSION: No acute process. ACT 112: Negative or not required by law. The above report was generated using voice recognition software. It may contain grammatical, syntax or spelling errors. Electronically signed by: Rigo Honeycutt M.D. 08/13/2023 4:[address] 08/13/23 15:53 CT SCAN OF THE BRAIN WITHOUT IV CONTRAST CLINICAL HISTORY: Change in mental status. COMPARISON STUDY: CT of the brain dated 02/25/2023. MRI of the brain dated 02/26/2023. TECHNIQUE: Unenhanced axial CT scan of the brain is performed from the vertex to the skull base. A dose lowering technique was utilized adhering to the principles of ALARA. CT DOSE: 625.8 mGy.cm FINDINGS: Brain parenchyma: There is age-related involutional change noting moderate to advanced confluent subcortical and periventricular microangiopathic disease. There is no hemorrhage, mass effect, or evidence of acute territorial ischemia by CT criteria. Skinner-white matter differentiation is preserved. No extra-axial fluid collection is seen. Ventricles, sulci, cisterns: Prominent secondary to involutional change. Intracranial vasculature: There is atherosclerotic calcification of the cavernous carotid arteries. Calvarium: Unremarkable. Sinuses and mastoids: The visualized paranasal sinuses are clear. The mastoid air cells are well pneumatized. Orbits: The bony orbits are grossly intact. IMPRESSION: There is no hemorrhage, mass effect, or evidence of acute territorial ischemia by CT criteria. ACT 112: Negative or not required by law. Electronically signed by: Osmar Altamirano M.D. 08/13/2023 5:01 PM Code Status & VTE Plan Code Status Full code VTE Prophylaxis Plan VTE Prophylaxis will be ordered: Yes Supervising Physician Co-Signing Physician Notes I personally saw and examined the patient. I independently reviewed the labs, EKG, imaging, problem list, medication list, past medical history and family his tory. I verified all meeks points and agree with Gilbert Barajas PA-C with the following exceptions and/or additions: 78 year old female with dementia presents to the ER with her due to concerns for acute confusion / word findings difficulty. Found by her this morning with her on the floor looking under the bed and not making sense. Brought to the ER as unable to get her up again on her feet. O/E A but disorientated x3, making up strange sentences, HS RRR, no murmurs, Chest CTAB, Abdo SNT, no pronator drift, able to follow one step commands A/P Altered mental status - dysphasia much more than just generalized confusion. She is able to follow commands well. May just be progression of dementia however given acute change will get brain MRI if possible to rule out acute CVA. Recommend brain MRI not completed at night due to risk of exacerbated delirium. PG Care Time/CCT Total # of Minutes Spent Total Time Spent with Patient: Total time spent is greater than 50% in coordination of care (as documented) at patient's floor/unit and/or counseling patient: C[place] [address] INT INP/OBS CARE 2/55MIN Patient Type Established Medical Decision Making Moderate Complexity Diagnoses Stroke-like symptoms R29.90 Dementia F03.90 Dry mouth R68.2 Elevated transaminase level R74.01 GERD without esophagitis K21.9
[2023-08-13] MEDS ORDERED: ONDANSETRON 4 MG OD TAB PO PRN (21:27)
[2023-08-13] MEDS: ESCITALOPRAM OXALATE 10 MG TAB PO SCH (22:34)
[2023-08-13] MEDS: MEMANTINE HCL 5 MG TAB PO SCH (22:34)
[2023-08-13] MEDS: ENOXAPARIN INJ 40 MG/0.4 ML SYR SQ SCH (22:35)
[2023-08-13] MEDS ORDERED: ASPIRIN CHEW 324 MG PO STA (22:52)
--- NOTE | 2023-08-14 03:39 | Magnetic Resonance Report ---
Exam(s): MRI HEAD Without Contrast EXAM: MR Head Without Intravenous Contrast CLINICAL HISTORY: Reason for exam: CVA/TIA r/o. TECHNIQUE: Magnetic resonance images of the head/brain without intravenous contrast in multiple planes. Moderate motion artifact. COMPARISON: Head CT 08/13/23, and MRI brain 02/26/23. FINDINGS: Brain: No mass effect or acute infarct. No acute hemorrhage. Moderate atrophy and chronic white matter disease, stable, given differences in technique. Ventricles: No hydrocephalus or midline shift. Bones/joints: No acute finding. Soft tissues: No scalp hematoma. Sinuses: Clear. Mastoid air cells: No mastoid effusion. IMPRESSION: 1. Stable, moderate age related findings. 2. No acute infarct, bleed, or acute intracranial abnormality. 3. No significant interval change. 4. Moderate motion artifact. Electronically signed by: Kami Lim M.D. 08/14/23 03:38 AM
[2023-08-14] MEDS: ASPIRIN 81 MG ECTAB PO SCH (09:17)
[2023-08-14] MEDS: MEMANTINE HCL 5 MG TAB PO SCH ×2 (09:18→22:23)
[2023-08-14] MEDS: OXYBUTYNIN CHLORIDE XL 5 MG TABCR PO SCH (09:18)
[2023-08-14] MEDS: ATORVASTATIN 40 MG TAB PO SCH (09:18)
[2023-08-14 12:37] LABS: Basophils # (auto) 0.03 K/uL (0.00-0.20); Basophils % (auto) 0.4 %; Eosinophils # (auto) 0.13 K/uL (0.00-0.50); Eosinophils % (auto) 1.8 %; Hematocrit (blood only) 41.7 % (37.0-47.0); Hemoglobin 13.9 g/dl (12.0-16.0); Immature Granulocytes # (auto) 0.03 K/uL (0.01-0.20); Immature Granulocytes % (auto) 0.4 %; Lymphocytes # (auto) 1.26 K/uL (1.20-3.40); Lymphocytes % (auto) 17.3 %; Mean Corpuscular Hemoglobin 31.2 pg (25.0-34.0); Mean Corpuscular Hgb Conc 33.3 g/dL (32.0-36.0); Mean Corpuscular Volume 93.7 fL (80.0-100.0); Mean Platelet Volume 9.8 fL (9.4-12.4); Monocytes # (auto) 0.39 K/uL (0.11-0.59); Monocytes % (auto) 5.3 %; Neutrophils # (auto) 5.46 K/uL (1.40-6.50); Neutrophils % (auto) 74.8 %; Platelet Count 208 K/uL (130-400); RDW Coefficient of Variation 12.7 % (11.5-14.5); RDW Standard Deviation 43.7 fL (36.4-46.3); Red Blood Count 4.45 M/uL (4.20-5.40)
[2023-08-14 12:53] LABS: Albumin Globulin Ratio 1.4 (0.9-2); Albumin Level 4.1 gm/dl (3.4-5.0); BUN Creatinine Ratio 18.6 (10-20); Bilirubin,Total 1.8 mg/dl (0.2-1.0); Creatinine Clr Calc Pharmacy 43.3 ml/min; Est GFR (African American) 75.5 ml/min; Est GFR (Non-African American) 65.2 ml/min; Globulin 2.9 gm/dl (2.5-4.0); Potassium 4.1 mmol/L (3.5-5.1)
[2023-08-14 13:07] LABS: Thyroid Stimulating Hormone 0.996 uIu/ml (0.300-4.500)
[2023-08-14] MEDS: ACETAMINOPHEN 325 MG TAB PO PRN ×2 (16:20→22:22)
--- NOTE | 2023-08-14 17:19 | Hospitalist Progress Note ---
Date of Service August 14, 2023 Assessment & Plan (1) Stroke-like symptoms: Plan: Patient's reported that she was mumbling, had incoherent speech, had inability to stand on 08/13/23 when she was found on the floor. Extensive w/u to date negative including MRI brain. Only abnormality seen is that of LFTs - t bili, alk phos, and AST all elevated. Thus, will obtain RUQ u/s to r/o a developing cholecystitis or choledocholithiasis that caused weakness and confusion. Otherwise I have not found a specific cause of her presentation. If RUQ u/s is negative consider biofire panel, EEG to r/o seizure, etc. Repeat labs am. Defer on CTA head/neck as these were both normal in spring 2022. Echo in 02/2023 also wnl and did not show a source for embolus. (2) Dementia: Plan: Per neuro office notes she has baseline dementia. I am uncertain, however, if her current state is what she is typically like at home or if there is superimposed delirium. Continue Namenda. (3) Elevated transaminase level: Plan: Etiology uncertain see #1 above RUQ u/s ordered repeat LFTs am (4) GERD without esophagitis: Plan: not on meds for such at home (5) Hyponatremia: Plan: appears volume contracted on exam today give isotonic fluids overnight and repeat BMP am Plan DVT proph - lovenox attempted to call pt's by phone - no answer, left voicemail message will try again tomorrow PT, OT kyle needed Admission and Anticipated Discharge Date Admission Date: August 13, 2023 Subjective patient lying in bed comfortably during the visit very confused unable to offer much in the way of history she kept referring to "Boom" and that "he is over there" (pointing over towards the wall) she denied any pain in any location she did state she was tired but that it had been "going on a long time" Review of Systems Review of Systems: Unobtainable due to cognitive status Physical Exam Physical Exam: gen - disheveled - bedsheets were all twisted, her gown was off, etc; confused mouth - MM dry neck - no JVD heart - RRR, s1 s2, no murmur lungs - CTA b/l abd - soft NT ND BS+; no HSM ext - no edema, pulses 2+ b/l skin - no rash psych - oriented to person and year only; thought she was at home neuro - speech clear; no facial droop; strength 5/5 x 4 exts Results & Data Results & Data Vital Signs (Past 12 Hours) Vital Signs Pulse Pulse Resp BP Pulse Ox O2 Del Method 08/14/23 15:58 82 18 141/100 H 98 Room Air 08/14/23 15:48 83 08/14/23 11:00 83 17 140/93 97 Room Air 08/14/23 07:39 80 17 151/87 H 96 Room Air 08/14/23 07:17 79 Laboratory Results Laboratory Results - last 48 hr 08/13/23 08/13/23 08/13/23 15:15 15:30 17:30 WBC 5.57 RBC 4.27 Hgb 13.5 Hct 40.5 MCV 94.8 MCH 31.6 MCHC 33.3 RDW Std Deviation 43.9 RDW Coeff of Sameera 12.8 Plt Count 224 MPV 10.3 Immature Gran % (Auto) 0.4 Neut % (Auto) 68.1 Lymph % (Auto) 21.4 Vermillion % (Auto) 8.3 Eos % (Auto) 1.4 Baso % (Auto) 0.4 Neut # (Auto) 3.80 Lymph # (Auto) 1.19 L [place] # (Auto) 0.46 Eos # (Auto) 0.08 Baso # (Auto) 0.02 Immature Gran # (Auto) 0.02 Sodium 134 L Potassium 3.8 Chloride 100 Carbon Dioxide 29 Anion Gap 5 BUN 12 Creatinine 0.86 Est Cr Clr Drug Dosing 43.3 Est GFR ( Amer) 75.5 Est GFR (Non-Af Amer) 65.2 BUN/Creatinine Ratio 14.0 Glucose 90 Lactate 0.8 Calcium 9.0 Magnesium 2.2 Total Bilirubin 0.7 AST 63 H ALT 57 H Alkaline Phosphatase 172 H Ammonia Total Creatine Kinase Troponin I High Sens 6.0 Total Protein 7.5 Albumin 4.3 Globulin 3.2 Albumin/Globulin Ratio 1.3 TSH Urine Color Yellow Urine Appearance Clear Urine pH 8.5 H Ur Specific [place] 1.016 Urine Protein Negative Urine Glucose (UA) Negative Urine Ketones Negative Urine Blood Negative Urine Nitrite Negative Urine Bilirubin Negative Urine Urobilinogen Negative Ur Leukocyte Esterase Negative SARS-CoV-2 (PCR) Influenza Type A (PCR) Influenza Type B (PCR) RSV (RT-PCR) 08/13/23 08/13/23 08/14/23 17:35 19:03 12:21 WBC 7.30 RBC 4.45 Hgb 13.9 Hct 41.7 MCV 93.7 MCH 31.2 MCHC 33.3 RDW Std Deviation 43.7 RDW Coeff of Sameera 12.7 Plt Count 208 MPV 9.8 Immature Gran % (Auto) 0.4 Neut % (Auto) 74.8 Lymph % (Auto) 17.3 [place] % (Auto) 5.3 Eos % (Auto) 1.8 Baso % (Auto) 0.4 Neut # (Auto) 5.46 Lymph # (Auto) 1.26 [place] # (Auto) 0.39 Eos # (Auto) 0.13 Baso # (Auto) 0.03 Immature Gran # (Auto) 0.03 Sodium 132 L Potassium 4.1 Chloride 98 Carbon Dioxide 28 Anion Gap 6 BUN 16 Creatinine 0.86 Est Cr Clr Drug Dosing 43.3 Est GFR ( Amer) 75.5 Est GFR (Non-Af Amer) 65.2 BUN/Creatinine Ratio 18.6 Glucose 84 Lactate Calcium 9.0 Magnesium Total Bilirubin 1.8 H D AST 46 H ALT 45 Alkaline Phosphatase 129 H Ammonia 20.0 Total Creatine Kinase 231 H Troponin I High Sens Total Protein 7.0 Albumin 4.1 Globulin 2.9 Albumin/Globulin Ratio 1.4 TSH 0.996 Urine Color Urine Appearance Urine pH Ur Specific [place] Urine Protein Urine Glucose (UA) Urine Ketones Urine Blood Urine Nitrite Urine Bilirubin Urine Urobilinogen Ur Leukocyte Esterase SARS-CoV-2 (PCR) NEGATIVE Influenza Type A (PCR) Negative Influenza Type B (PCR) Negative RSV (RT-PCR) Negative Diagnostic Findings MRI Brain - atrophy, no acute CVA PG Care Time/CCT Total # of Minutes Spent Total Time Spent with Patient: Total time spent is greater than 50% in coordination of care (as documented) at patient's floor/unit and/or counseling patient: Coding Level of Care Code 07306 SUB INP/OBS CARE 235MIN Diagnoses Stroke-like symptoms R29.90 Dementia F03.90 Elevated transaminase level R74.01 GERD without esophagitis K21.9 Hyponatremia E87.1
[2023-08-14] MEDS ORDERED: D5W AND NSS 1,000 ML IV SCH (17:30)
--- NOTE | 2023-08-14 19:03 | Ultrasound Report ---
ABDOMINAL ULTRASOUND, RIGHT UPPER QUADRANT HISTORY: altered MS, abnl LFTs; cholecystitis?. COMPARISON: None. FINDINGS: Pancreas: The pancreatic tail is obscured by overlying bowel gas. The remaining portions of the pancr eas are within normal limits. Liver: Unremarkable. Gallbladder: The gallbladder is mildly distended. There is no gallbladder wall thickening. No gallsto ann identified. CBD: 4 mm. Right kidney: No hydronephrosis. A few cysts with the largest measuring 4.2 cm. IMPRESSION: 1. The gallbladder is mildly distended. However, there are no gallstones and no gallbladder wall thic kening. 2. Normal caliber common bile duct ACT 112: Negative or not required by law. Electronically signed by: Gilbert Campbell M.D. 08/14/2023 7:01 PM
[2023-08-14] MEDS: ENOXAPARIN INJ 40 MG/0.4 ML SYR SQ SCH (22:22)
[2023-08-14] MEDS: ESCITALOPRAM OXALATE 10 MG TAB PO SCH (22:22)
[2023-08-14] MEDS ORDERED: MELATONIN 3 MG TAB PO PRN (23:44)
[2023-08-15 07:09] LABS: Albumin Level 3.9 gm/dl (3.4-5.0); Bilirubin,Total 1.7 mg/dl (0.2-1.0); Calcium 8.7 mg/dl (8.6-10.3); Potassium 3.8 mmol/L (3.5-5.1)
[2023-08-15 07:15] LABS: Albumin Globulin Ratio 1.4 (0.9-2); BUN Creatinine Ratio 23.8 (10-20); Creatinine Clr Calc Pharmacy 42.1 ml/min; Est GFR (African American) 77.7 ml/min; Globulin 2.8 gm/dl (2.5-4.0); Total Protein 6.7 gm/dl (6.0-8.3)
[2023-08-15] MEDS: ATORVASTATIN 40 MG TAB PO SCH (09:07)
[2023-08-15] MEDS: OXYBUTYNIN CHLORIDE XL 5 MG TABCR PO SCH (09:08)
[2023-08-15] MEDS: ASPIRIN 81 MG ECTAB PO SCH (09:08)
[2023-08-15] MEDS: MEMANTINE HCL 5 MG TAB PO SCH (09:08)
--- NOTE | 2023-08-15 13:08 | Electroencephalogram ---
EEG Procedure Note Date of Service August 15, 2023 Start / End Times Start Time: 1153 End Time: [address] Mcdonnell History 78-year-old with history of episodic confusion Home Medication List Medication Instructions Recorded Confirmed Type calcium carbonate 600 mg calcium 600 mg PO QAM 11/24/19 08/13/23 History (1,500 mg) tablet (Calcium) cholecalciferol (vitamin D3) 25 1,000 units PO QAM 02/17/20 08/13/23 History mcg (1,000 unit) capsule multivitamin with minerals 1 tab PO QAM 01/17/21 08/13/23 History (Hair,Skin and Nails tablet) aspirin 81 mg tablet,delayed 81 mg PO QAM #30 tabs 02/26/23 08/13/23 Rx release ondansetron HCl 4 mg tablet 4 mg PO Q8H PRN nausea and 02/26/23 08/13/23 Rx vomiting #90 tabs atorvastatin 40 mg tablet 40 mg PO QAM #90 tabs 03/23/23 08/13/23 Rx escitalopram oxalate 10 mg tablet 15 mg (1.5 x 10 mg) PO HS #135 tabs 04/13/23 08/13/23 Rx trospium 20 mg tablet 20 mg PO BID #60 tabs 08/02/23 08/13/23 Rx memantine 5 mg tablet 5 mg PO BID 08/13/23 08/13/23 History Inpatient Medication List Acetaminophen (Acetaminophen 325 Mg Tab) 650 mg PO Q4H PRN PRN Reason: Pain or Fever Stop: 09/12/23 21:17 Last Admin: 08/14/23 22:22 Dose: 650 mg Documented By: Admin: 08/14/23 16:20 Dose: 650 mg Documented By: KVNG Aspirin (Aspirin 81 Mg Ectab) 81 mg PO QAM [facility] Stop: 09/13/23 08:59 Last Admin: 08/15/23 09:08 Dose: 81 mg Documented By: Admin: 08/14/23 09:17 Dose: 81 mg Documented By: SHARAN Atorvastatin Calcium (Atorvastatin 40 Mg Tab) 40 mg PO QAM [facility] Stop: 09/13/23 08:59 Last Admin: 08/15/23 09:07 Dose: 40 mg Documented By: Admin: 08/14/23 09:18 Dose: 40 mg Documented By: SHARAN Enoxaparin Sodium (Enoxaparin Inj 40 Mg/0.4 Ml Syr) 40 mg SQ Q24H [facility] Stop: 09/12/23 21:59 Last Admin: 08/14/23 22:22 Dose: 40 mg Documented By: Admin: 08/13/23 22:35 Dose: Not Given Documented By: MADDY Escitalopram Oxalate (Escitalopram Oxalate 10 Mg Tab) 15 mg PO HS [facility] Stop: 09/12/23 21:17 Last Admin: 08/14/23 22:22 Dose: 15 mg Documented By: Admin: 08/13/23 22:34 Dose: 15 mg Documented By: MADDY Melatonin (Melatonin 3 Mg Tab) 3 mg PO HS PRN PRN Reason: Sleep Stop: 09/13/23 23:43 Last Admin: 08/15/23 00:09 Dose: 3 mg Documented By: CHLOE Memantine (Memantine Hcl 5 Mg Tab) 5 mg PO BID [facility] Stop: 09/12/23 21:17 Last Admin: 08/15/23 09:08 Dose: 5 mg Documented By: Admin: 08/14/23 22:23 Dose: 5 mg Documented By: Admin: 08/14/23 09:18 Dose: 5 mg Documented By: Admin: 08/13/23 22:34 Dose: 5 mg Documented By: MADDY Ondansetron HCl (Ondansetron 4 Mg Od Tab) 4 mg PO Q8H PRN PRN Reason: nausea and vomiting Stop: 09/12/23 21:26 Last Admin: 08/15/23 05:03 Dose: 4 mg Documented By: CHLOE Oxybutynin Chloride (Oxybutynin Chloride Xl 5 Mg Tabcr) 5 mg PO QAM [facility] Stop: 09/13/23 08:59 Last Admin: 08/15/23 09:08 Dose: 5 mg Documented By: Admin: 08/14/23 09:18 Dose: 5 mg Documented By: SHARAN Discontinued Medications Aspirin (Aspirin Chew 324 Mg) 324 mg PO NOW STA Stop: 08/13/23 22:53 Last Admin: 08/13/23 23:21 Dose: 324 mg Documented By: LUIS Dextrose/Sodium Chloride (D5w And Nss) 1,000 mls @ 60 mls/hr IV .[id number] [facility] Stop: 09/13/23 17:29 Last Infusion: 08/15/23 08:56 Dose: Infused Documented By: Admin: 08/14/23 22:21 Dose: 60 mls/hr Documented By: CHLOE Description This is a 21 electrode EEG with a single channel dedicated to limited EKG. The electrodes were placed in accordance with the International 10-20 system. Interpretation The predominant background activity consists of an 7-8 Hz activity, of up to 40 mV in amplitude,seen symmetrically distributed over the posterior head regions bilaterally spreading anteriorly. This activity attenuates with eye-opening and other alerting procedures. Photic stimulation was performed and elicited no change in the background activity and no abnormal responses were seen. Hyperventilation was not performed. Considerable amount of muscle tension and very mild movement artifact activity contaminated the recording and entered interpretation throughout much of the recording. Throughout the waking portion of the recording, no focal abnormalities or potentially epileptogenic discharges were seen. The patient entered the drowsy state and periods of stage II sleep with no further activation. In summary, this EEG was mildly generally slow during wakefulness with no f urther changes during drowsiness or sleep. No focal abnormalities or potentially epileptic discharges were seen. Clinical Correlation The absence of potentially epileptogenic activity does not exclude a seizure disorder, since interictally, EEGs can be normal. The very mild slowing is likely secondary to encephalopathy which could be due to a wide variety causes. Clinical correlation is required. [facility] EEG Procedure Codes Indication for Procedure (1) Acute encephalopathy: Neurology Neurology: 84060 EEG include record awake & sleepy
[2023-08-15] MEDS ORDERED: ONDANSETRON INJ 2 MG/ML 2 ML VIAL IV STA (13:36)
--- NOTE | 2023-08-15 13:39 | Hospitalist Progress Note ---
Date of Service August 15, 2023 Assessment & Plan (1) Stroke-like symptoms: Plan: Patient's reported that she was mumbling, had incoherent speech, had inability to stand on 08/13/23 when she was found on the floor. Extensive w/u to date negative including MRI brain and EEG. Only abnormality seen is that of LFTs - t bili, alk phos, and AST all elevated. RUQ u/s without signs of cholecystitis or choledocholithiasis. MRCP returned negative for choledocholithiasis as well. EEG neg for seizure. COVID/flu/RSV negative. Deferred repeat CTA head/neck as these were both normal in spring 2022. Echo in 02/2023 also wnl and did not show a source for embolus. Her daughter expressed concerns that perhaps recent dose increase in Namenda in the last 2 weeks has caused side effects, more confusion, etc. Reasonable to HOLD Namenda and see the response. Repeat LFTs am. (2) Dementia: Plan: Per neuro office notes she has baseline dementia. Per daughter she is still very confused and not at baseline. Thus, has superimposed encephalopathy. HOLD Namenda as above. (3) Elevated transaminase level: Plan: Etiology uncertain see #1 above LFTs am (4) GERD without esophagitis: Plan: not on meds for such at home but given her GI complaints, h/o gastroparesis, etc -- add PPI daily (5) Hyponatremia: Plan: cont isotonic fluids repeat BMP am (6) Acute encephalopathy: Plan: schedule haldol 0.5mg HS re-assess response tomorrow Plan DVT proph - lovenox PT and OT recommending rehab - daughter seemed agreeable to such daughter extensively updated by phone this evening Admission and Anticipated Discharge Date Admission Date: August 13, 2023 Subjective tele overnight wnl by report ate dinner last pm and then subsequently vomited her entire dinner during my visit she said "I wish I felt better" when I asked her to clarify she pointed to the upper epigastric region and said she felt nauseous she also c/o mild discomfort in the same region she was otherwise unable to offer much more in the way of history late in the evening I spoke with the pt's daughter daughter expressed concerns that recently instituted namenda in July may be causing mental status changes, sedation, loss of function, etc. apparently she did not tolerate aricept her daughter states she did fine on 5mg once daily of namenda but after the increase to 5mg BID "things fell apart" she also asked if her lexapro dose could be reduced we discussed rehab post-d/c as recommended by PT/OT and daughter was very open to this Review of Systems Review of Systems: Unobtainable due to cognitive status Physical Exam Physical Exam: gen - despite her complains she actually looks better than yesterday, more awake, more alert mouth - MMM neck - no JVD heart - RRR, s1 s2, no murmur lungs - CTA b/l abd - soft ND BS+; no HSM; slightly tender high epigastric region ext - no edema, pulses 2+ b/l skin - no rash psych - oriented to person Results & Data Results & Data Vital Signs (Past 12 Hours) Vital Signs Temp Pulse Pulse Resp BP Pulse Ox O2 Del Method 08/15/23 11:01 36.5 C 85 18 115/75 96 Room Air 08/15/23 07:14 36.5 C 79 18 145/87 H 98 Room Air 08/15/23 06:28 73 08/15/23 06:28 73 08/15/23 04:05 73 08/15/23 04:05 73 08/15/23 03:14 36.5 C 83 18 156/81 H 96 Room Air Laboratory Results Laboratory Results - last 24 hr 08/15/23 05:52 Sodium 132 L Potassium 3.8 Chloride 98 Carbon Dioxide 25 Anion Gap 9 BUN 20 Creatinine 0.84 Est Cr Clr Drug Dosing 42.1 Est GFR ( Amer) 77.7 Est GFR (Non-Af Amer) 67.0 BUN/Creatinine Ratio 23.8 H Glucose 138 H Calcium 8.7 Total Bilirubin 1.7 H AST 40 H ALT 38 Alkaline Phosphatase 113 H Total Creatine Kinase 292 H Total Protein 6.7 Albumin 3.9 Globulin 2.8 Albumin/Globulin Ratio 1.4 Diagnostic Findings Cholangiopancreatography MRI 08/15/23 13:35 MR MRCP HISTORY: 78 years-old Female abnl LFTs, upper abd pain, vomiting acute nausea and vomiting with upper abdominal pain COMPARISON: Carotid ultrasound 08/14/2023 TECHNIQUE: MRCP was obtained without the use of IV contrast FINDINGS: Technical Project Coordinator localizer images demonstrate 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 Degenerative changes of the spine. No acute process of the imaged chest. Study is motion degraded. Unremarkable visualized solid organs. No hydronephrosis. T2 hyperintense lesions of the right kidney are suggestive of cysts are at no abdominal aortic aneurysm or lymphadenopathy. Distended gallbladder without cholelithiasis, wall thickening or pericholecystic fluid identified. Normal common bile duct, 5 mm. No choledocholithiasis or biliary strictures identified. Normal pancreatic duct. IMPRESSION: 1. Motion degraded exam. 2. Distended gallbladder without cholelithiasis, choledocholithiasis or biliary ductal dilation identified. ACT 112: Negative or not required by law. The above report was generated using voice recognition software. It may contain grammatical, syntax or spelling errors. Electronically signed by: Rigo Honeycutt M.D. 08/15/2023 6:59 PM EEG - neg for seizure activity; slowing c/w encephalopathy PG Care Time/CCT Total # of Minutes Spent Total Time Spent with Patient: Total time spent is greater than 50% in coordination of care (as documented) at patient's floor/unit and/or counseling patient: Coding Level of Care Code 02705 SUB INP/OBS CARE 3/50MIN Diagnoses Stroke-like symptoms R29.90 Dementia F03.90 Elevated transaminase level R74.01 GERD without esophagitis K21.9 Hyponatremia E87.1 Acute encephalopathy G93.40
[2023-08-15] MEDS ORDERED: FAMOTIDINE 20 MG in SYRINGE 3 ML IV ONE (13:45)
[2023-08-15] MEDS: SODIUM CHLORIDE 0.9% 1,000 ML IV SCH (13:59)
--- NOTE | 2023-08-15 19:00 | Magnetic Resonance Report ---
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 Degenerative changes o f the spine. No acute process of the imaged chest. Study is motion degraded. Unremarkable visualized solid organs. No hydronephrosis. T2 hyperintense lesions of the right kidney are suggestive of cysts are at no abdominal aortic aneurysm or lymphadenopathy. Distended gallbladder without cholelithiasis, wall thickening or pericholecystic fluid identified. Normal common bile duct, 5 mm. No choledocholit hiasis or biliary strictures identified. Normal pancreatic duct. IMPRESSION: 1. Motion degraded exam. 2. Distended gallbladder without cholelithiasis, choledocholithiasis or biliary ductal dilation ident ified. ACT 112: Negative or not required by law. The above report was generated using voice recognition software. It may contain grammatical, syntax o r spelling errors. Electronically signed by: Rigo Honeycutt M.D. 08/15/2023 6:59 PM
[2023-08-15] MEDS: ESCITALOPRAM OXALATE 10 MG TAB PO SCH (20:41)
[2023-08-15] MEDS: haloperidoL 0.5 MG TAB PO SCH (20:41)
[2023-08-15] MEDS: ENOXAPARIN INJ 40 MG/0.4 ML SYR SQ SCH (20:41)
[2023-08-15] MEDS: MELATONIN 3 MG TAB PO SCH (20:41)
[2023-08-16] MEDS ORDERED: OLANZapine 10 MG/2.1 ML SDV IM STA (01:19)
[2023-08-16 07:58] LABS: Albumin Globulin Ratio 1.3 (0.9-2); Albumin Level 3.6 gm/dl (3.4-5.0); Bilirubin,Total 1.3 mg/dl (0.2-1.0); Calcium 8.8 mg/dl (8.6-10.3); Creatinine Clr Calc Pharmacy 42.1 ml/min; Est GFR (African American) 77.7 ml/min; Globulin 2.7 gm/dl (2.5-4.0); Potassium 3.6 mmol/L (3.5-5.1); Total Protein 6.3 gm/dl (6.0-8.3)
[2023-08-16] MEDS: ASPIRIN 81 MG ECTAB PO SCH (09:04)
[2023-08-16] MEDS: OXYBUTYNIN CHLORIDE XL 5 MG TABCR PO SCH (09:04)
[2023-08-16] MEDS: ATORVASTATIN 40 MG TAB PO SCH (09:04)
[2023-08-16] MEDS: PANTOprazole 40 MG TAB PO SCH (10:46)
--- NOTE | 2023-08-16 14:21 | Hospitalist Progress Note ---
Date of Service August 16, 2023 Assessment & Plan (1) Stroke-like symptoms: Plan: Patient's reported that she was mumbling, had incoherent speech, had inability to stand on 08/13/23 when she was found on the floor. Extensive w/u to date negative including MRI brain and EEG. Only abnormality seen is that of LFTs - t bili, alk phos, and AST all elevated. RUQ u/s without signs of cholecystitis or choledocholithiasis. MRCP returned negative for choledocholithiasis as well. EEG neg for seizure. COVID/flu/RSV negative. Deferred repeat CTA head/neck as these were both normal in spring 2022. Echo in 02/2023 also wnl and did not show a source for embolus. Her daughter expressed concerns that perhaps recent dose increase in Namenda in the last 2 weeks has caused side effects, more confusion, etc. Cont to HOLD Namenda and see the response. Repeat LFTs am. (2) Dementia: Plan: Per neuro office notes she has baseline dementia. Per daughter she is still very confused and not at baseline. Thus, has superimposed encephalopathy. HOLD Namenda as above. (3) Elevated transaminase level: Plan: Etiology uncertain see #1 above LFTs improved but still elevated hold statin CT abd/pelvis, U/S of GB, and MRCP all with distended GB but no stones and normal CBD if LFTs remain elevated with her GI complaints ..... HIDA scan? check biofire, mono titers, CMV? (4) GERD without esophagitis: Plan: not on meds for such at home but given her GI complaints, h/o gastroparesis, etc -- added PPI daily (5) Hyponatremia: Plan: stop fluids repeat BMP am (6) Acute encephalopathy: Plan: cont scheduled haldol 0.5mg HS seemed to have tolerated this well overnight Plan DVT proph - lovenox PT and OT recommending rehab - social work assisting with such daughter extensively updated by phone yesterday evening Admission and Anticipated Discharge Date Admission Date: August 15, 2023 Subjective no issues overnight nursing flowsheets show she took some breakfast was sitting in chair when I visited with her said "Im really tired; I just don't have any energy." denies abd pain or nausea today no vomiting by report tele overnight wnl had normal BM this am per nursing documentation Review of Systems Review of Systems: pulm - no cough or congestion or dyspnea cv - no chest pain neuro - slight frontal headache but nothing too bothersome gen - weak/fatigued Physical Exam Physical Exam: gen - NAD, pleasantly confused, looks good mouth - MMM neck - no JVD heart - RRR, s1 s2, no murmur lungs - CTA b/l abd - soft ND BS+; no HSM, NT today ext - no edema, pulses 2+ b/l psych - oriented to person only Results & Data Results & Data Vital Signs (Past 12 Hours) Vital Signs Temp Pulse Pulse Resp BP Pulse Ox O2 Del Method 08/16/23 11:19 37.0 C 81 16 117/76 95 Room Air 08/16/23 08:09 72 08/16/23 07:49 36.7 C 76 16 117/74 95 Room Air 08/16/23 02:41 36.4 C L 79 16 126/76 93 Room Air Laboratory Results Laboratory Results 08/16/23 07:15 ESR Sodium 134 L Potassium 3.6 Chloride 101 Carbon Dioxide 27 Anion Gap 6 BUN 16 Creatinine 0.84 Est Cr Clr Drug Dosing 42.1 Est GFR ( Amer) 77.7 Est GFR (Non-Af Amer) 67.0 BUN/Creatinine Ratio 19.0 Glucose 105 H Calcium 8.8 Total Bilirubin 1.3 H AST 40 H ALT 33 Alkaline Phosphatase 108 H C-Reactive Protein Total Protein 6.3 Albumin 3.6 Globulin 2.7 Albumin/Globulin Ratio 1.3 Lipase 24 Vitamin B12 PG Care Time/CCT Total # of Minutes Spent Total Time Spent with Patient: Total time spent is greater than 50% in coordination of care (as documented) at patient's floor/unit and/or counseling patient: Coding Level of Care Code 57015 SUB INP/OBS CARE 2/35MIN Diagnoses Stroke-like symptoms R29.90 Dementia F03.90 Elevated transaminase level R74.01 GERD without esophagitis K21.9 Hyponatremia E87.1 Acute encephalopathy G93.40
[2023-08-16] MEDS: ENOXAPARIN INJ 40 MG/0.4 ML SYR SQ SCH (20:15)
[2023-08-16] MEDS: ESCITALOPRAM OXALATE 10 MG TAB PO SCH (20:16)
[2023-08-16] MEDS: MELATONIN 3 MG TAB PO SCH (20:16)
[2023-08-16] MEDS: haloperidoL 0.5 MG TAB PO SCH (20:16)
[2023-08-17 07:32] LABS: Albumin Globulin Ratio 1.4 (0.9-2); Albumin Level 3.4 gm/dl (3.4-5.0); BUN Creatinine Ratio 19.4 (10-20); Bilirubin,Total 1.3 mg/dl (0.2-1.0); C Reactive Protein 0.62 mg/dl (0-0.5); Calcium 8.5 mg/dl (8.6-10.3); Creatinine Clr Calc Pharmacy 56.4 ml/min; Est GFR (African American) 98.3 ml/min; Est GFR (Non-African American) 84.8 ml/min; Globulin 2.4 gm/dl (2.5-4.0); Potassium 3.4 mmol/L (3.5-5.1); Total Protein 5.8 gm/dl (6.0-8.3)
[2023-08-17] MEDS: ATORVASTATIN 40 MG TAB PO SCH (08:49)
[2023-08-17] MEDS: PANTOprazole 40 MG TAB PO SCH (08:49)
[2023-08-17] MEDS: ASPIRIN 81 MG ECTAB PO SCH (08:49)
[2023-08-17] MEDS: OXYBUTYNIN CHLORIDE XL 5 MG TABCR PO SCH (08:49)
[2023-08-17] MEDS: POTASSIUM CHLORIDE CRTAB 20 MEQ TABCR PO SCH ×2 (14:47→20:09)
--- NOTE | 2023-08-17 14:53 | Nuclear Medicine Report ---
NM hepatobiliary CLINICAL HISTORY: 78 years-old Female with abnl LFTs, distended GB on CT/MR. TECHNIQUE: Sequential anterior abdominal images were obtained through 60 minutes following the intra venous administration of 5.0 mCi of technetium-99m Choletec. COMPARISON: Ultrasound 08/14/2023 FINDINGS: There is prompt, uniform accumulation of the tracer by the liver. There is normal filling of the int rahepatic ducts, common bile duct and minimal excretion of the tracer into the duodenum. The gallbla dder fills normally. IMPRESSION: No scintigraphic evidence for cystic duct obstruction. ACT 112: Negative or not required by law. The above report was generated using voice recognition software. It may contain grammatical, syntax o r spelling errors. Electronically signed by: Rigo Honeycutt M.D. 08/17/2023 2:52 PM
[2023-08-17] MEDS: SODIUM CHLORIDE 0.9% 1,000 ML IV SCH (19:36)
[2023-08-17] MEDS: MELATONIN 3 MG TAB PO SCH (20:09)
[2023-08-17] MEDS: risperiDONE 0.5 MG TABLET PO SCH (20:09)
[2023-08-17] MEDS: ACETAMINOPHEN 325 MG TAB PO PRN (20:09)
[2023-08-17] MEDS: ESCITALOPRAM OXALATE 10 MG TAB PO SCH (20:09)
--- NOTE | 2023-08-17 20:26 | Hospitalist Progress Note ---
Date of Service August 17, 2023 Assessment & Plan (1) Stroke-like symptoms: Plan: Patient's reported that she was mumbling, had incoherent speech, had inability to stand on 08/13/23 when she was found on the floor. Extensive w/u to date negative including MRI brain and EEG. Only abnormality seen is that of LFTs - t bili, alk phos, and AST all elevated. RUQ u/s without signs of cholecystitis or choledocholithiasis. MRCP returned negative for choledocholithiasis as well. EEG neg for seizure. COVID/flu/RSV negative. Deferred repeat CTA head/neck as these were both normal in spring 2022. Echo in 02/2023 also wnl and did not show a source for embolus. Her daughter expressed concerns that perhaps recent dose increase in Namenda in the last 2 weeks has caused side effects, more confusion, etc. Cont to HOLD Namenda - I do believe her daughter is right regarding the Namenda. I have noted a positive difference since stopping it. Repeat LFTs am. (2) Dementia: Plan: Per neuro office notes she has baseline dementia. Superimposed encephalopathy is improved per daughter. Cont to HOLD Namenda as above. (3) Elevated transaminase level: Plan: Etiology uncertain see #1 above LFTs improved but still elevated hold statin CT abd/pelvis, U/S of GB, and MRCP all with distended GB but no stones and normal CBD to be completed checked HIDA scan - negative/normal simply repeat LFTs am if they remain same or worsen consider Biofire, mono titers, CMV, etc (4) GERD without esophagitis: Plan: not on meds for such at home but given her GI complaints, h/o gastroparesis, etc -- added PPI daily (5) Hyponatremia: Plan: improved await Urine Na and Urine osm - suspect solute deficient based on daughter's report of very poor po intake chronically repeat BMP am (6) Acute encephalopathy: Plan: has tolerated scheduled haldol 0.5mg HS but will not send her out of hospital on this thus, stop haldol, change to PO risperdal 0.25mg HS B12 wnl Brain MRI wnl B1 level pending; place on empiric thiamine BID while awaiting level Plan DVT proph - lovenox PT and OT recommending rehab - social work assisting with such daughter extensively updated at bedside Admission and Anticipated Discharge Date Admission Date: August 15, 2023 Subjective tele wnl overnight no events slept ok overnight during the visit she was sitting in the chair eating her meal daughter at bedside daughter is pleased by how her mother is doing much more awake, alert, and conversant still with confusion - but much better on grand scale vs at time of admission and also what they had been seeing at home recently pt without complaints of abd pain/nausea/emesis +BM this am Review of Systems Review of Systems: pulm - no dyspnea GI - no pain today cv - no chest pain Physical Exam Physical Exam: gen - NAD, pleasantly confused, looks very good today; talkative mouth - MMM neck - no JVD heart - RRR, s1 s2, no murmur lungs - CTA b/l abd - soft ND NT BS+; no HSM ext - no edema, pulses 2+ b/l psych - awake, alert, not agitated Results & Data Results & Data Vital Signs (Past 12 Hours) Vital Signs Temp Pulse Resp BP BP Pulse Ox O2 Del Method 08/17/23 19:14 36.7 C 79 16 118/79 97 Room Air 08/17/23 15:29 36.6 C 100 H 16 128/79 96 Room Air 08/17/23 11:35 37.0 C 75 16 111/67 95 Room Air Laboratory Results Laboratory Results - last 24 hr 08/17/23 06:34 ESR 8 Sodium 132 L Potassium 3.4 L Chloride 101 Carbon Dioxide 25 Anion Gap 6 BUN 13 Creatinine 0.67 Est Cr Clr Drug Dosing 56.4 Est GFR ( Amer) 98.3 Est GFR (Non-Af Amer) 84.8 BUN/Creatinine Ratio 19.4 Glucose 97 Calcium 8.5 L Total Bilirubin 1.3 H AST 41 H ALT 33 Alkaline Phosphatase 114 H C-Reactive Protein 0.62 H Total Protein 5.8 L Albumin 3.4 Globulin 2.4 L Albumin/Globulin Ratio 1.4 Vitamin B1 Pending Vitamin B12 822 PG Care Time/CCT Total # of Minutes Spent Total Time Spent with Patient: Total time spent is greater than 50% in coordination of care (as documented) at patient's floor/unit and/or counseling patient: Coding Level of Care Code 99924 SUB INP/OBS CARE 2/35MIN Diagnoses Stroke-like symptoms R29.90 Dementia F03.90 Elevated transaminase level R74.01 GERD without esophagitis K21.9 Hyponatremia E87.1 Acute encephalopathy G93.40
[2023-08-17] MEDS: ENOXAPARIN INJ 40 MG/0.4 ML SYR SQ SCH (22:07)
[2023-08-17] MEDS: THIAMINE HCL 200 MG in SODIUM CHLORIDE 0.9% 50 ML IV SCH (22:07)
[2023-08-18 07:36] LABS: Albumin Globulin Ratio 1.5 (0.9-2); Albumin Level 3.6 gm/dl (3.4-5.0); BUN Creatinine Ratio 11.8 (10-20); Calcium 8.9 mg/dl (8.6-10.3); Creatinine Clr Calc Pharmacy 54.9 ml/min; Est GFR (African American) 97.8 ml/min; Est GFR (Non-African American) 84.4 ml/min; Globulin 2.4 gm/dl (2.5-4.0)
[2023-08-18] MEDS: ONDANSETRON INJ 2 MG/ML 2 ML VIAL IV PRN (09:23)
[2023-08-18] MEDS: PANTOprazole 40 MG TAB PO SCH (09:24)
[2023-08-18] MEDS: THIAMINE HCL 200 MG in SODIUM CHLORIDE 0.9% 50 ML IV SCH ×2 (09:24→21:34)
[2023-08-18] MEDS: OXYBUTYNIN CHLORIDE XL 5 MG TABCR PO SCH (09:24)
[2023-08-18] MEDS: ASPIRIN 81 MG ECTAB PO SCH (09:24)
[2023-08-18] MEDS: POTASSIUM CHLORIDE CRTAB 20 MEQ TABCR PO SCH ×2 (09:29→21:33)
--- NOTE | 2023-08-18 21:31 | Hospitalist Progress Note ---
Date of Service August 18, 2023 Assessment & Plan (1) Stroke-like symptoms: Plan: Patient's reported that she was mumbling, had incoherent speech, had inability to stand on 08/13/23 when she was found on the floor. Extensive w/u to date negative including MRI brain and EEG. Only abnormality seen is that of LFTs - t bili, alk phos, and AST all elevated. RUQ u/s without signs of cholecystitis or choledocholithiasis. MRCP returned negative for choledocholithiasis as well. EEG neg for seizure. COVID/flu/RSV negative. Deferred repeat CTA head/neck as these were both normal in spring 2022. Echo in 02/2023 also wnl and did not show a source for embolus. Her daughter expressed concerns that perhaps recent dose increase in Namenda in the last 2 weeks had caused side effects, more confusion, etc. Cont to HOLD Namenda - I do believe her daughter is right regarding the Namenda. I have noted a positive difference since stopping it earlier this week. Etiology and significance of mildly elevated LFTs uncertain but they are nearly normal at this point. Not sure if they were contributing in any fashion to her presentation. Repeat LFTs in 2-3 days. (2) Dementia: Plan: Per neuro office notes she has baseline dementia. Superimposed encephalopathy is improved. Cont to HOLD Namenda as above. Tolerated low-dose risperdal 0.25mg HS overnight and no apparent side effects. (3) Elevated transaminase level: Plan: Etiology uncertain LFTs continue to improve cont to hold statin CT abd/pelvis, U/S of GB, and MRCP all with distended GB but no stones and normal CBD checked HIDA scan due to gall bladder distension seen on the above studies - negative/normal simply repeat LFTs in 48 hours if they remain same or worsen consider Biofire, mono titers, CMV, etc (4) GERD without esophagitis: Plan: not on meds for such at home but given her GI complaints, h/o gastroparesis, etc -- added PPI daily (5) Hyponatremia: Plan: improved/resolved suspect solute deficient based on daughter's report of very poor po intake chronically Na level improved with saline & improved appetite (6) Acute encephalopathy: Plan: continue risperdal 0.25mg HS B12 wnl Brain MRI wnl B1 level pending; place on empiric thiamine BID while awaiting level Plan DVT proph - lovenox PT and OT recommending rehab - social work assisting with such daughter extensively updated at bedside yesterday Admission and Anticipated Discharge Date Admission Date: August 15, 2023 Subjective no events overnight slept well per the nursing record no agitated delirium during the visit she was resting in bed was smiling no new complaints mentioned "a little nausea here and there" but this is chronic eating fair-good per nursing flowsheets Review of Systems Review of Systems: cv - no chest pain pulm - no dyspnea GI - no abd pain or vomiting ; stool on 08/17/23 Physical Exam Physical Exam: gen - NAD, pleasantly confused, looks great neck - no JVD heart - RRR, s1 s2, no murmur lungs - CTA b/l abd - soft ND NT BS+; no HSM ext - no edema, pulses 2+ b/l psych - awake, alert, not agitated; oriented to person only Results & Data Results & Data Vital Signs (Past 12 Hours) Vital Signs Temp Pulse Pulse Resp BP BP Pulse Ox 08/18/23 19:35 36.7 C 76 18 116/78 96 08/18/23 15:23 36.4 C L 75 18 133/84 96 08/18/23 14:45 75 08/18/23 11:56 36.6 C 71 16 116/78 97 O2 Del Method 08/18/23 19:35 Room Air 08/18/23 15:23 Room Air 08/18/23 14:45 08/18/23 11:56 Room Air Laboratory Results Laboratory Results - last 24 hr 08/18/23 08/18/23 00:01 06:45 Sodium 136 Potassium 4.0 Chloride 105 Carbon Dioxide 25 Anion Gap 6 BUN 8 Creatinine 0.68 Est Cr Clr Drug Dosing 54.9 Est GFR ( Amer) 97.8 Est GFR (Non-Af Amer) 84.4 BUN/Creatinine Ratio 11.8 Glucose 101 H Calcium 8.9 Total Bilirubin 1.0 AST 41 H ALT 37 Alkaline Phosphatase 114 H Total Protein 6.0 Albumin 3.6 Globulin 2.4 L Albumin/Globulin Ratio 1.5 Urine Osmolality 156 L Ur Random Sodium 19 PG Care Time/CCT Total # of Minutes Spent Total Time Spent with Patient: Total time spent is greater than 50% in coordination of care (as documented) at patient's floor/unit and/or counseling patient: Coding Level of Care Code 81900 SUB INP/OBS CARE Diagnoses Stroke-like symptoms R29.90 Dementia F03.90 Elevated transaminase level R74.01 GERD without esophagitis K21.9 Hyponatremia E87.1 Acute encephalopathy G93.40
[2023-08-18] MEDS: risperiDONE 0.5 MG TABLET PO SCH (21:33)
[2023-08-18] MEDS: MELATONIN 3 MG TAB PO SCH (21:33)
[2023-08-18] MEDS: ESCITALOPRAM OXALATE 10 MG TAB PO SCH (21:33)
[2023-08-18] MEDS: ENOXAPARIN INJ 40 MG/0.4 ML SYR SQ SCH (21:34)
[2023-08-19] MEDS: ASPIRIN 81 MG ECTAB PO SCH (08:43)
[2023-08-19] MEDS: OXYBUTYNIN CHLORIDE XL 5 MG TABCR PO SCH (08:43)
[2023-08-19] MEDS: THIAMINE HCL 200 MG in SODIUM CHLORIDE 0.9% 50 ML IV SCH ×2 (08:43→20:48)
[2023-08-19] MEDS: PANTOprazole 40 MG TAB PO SCH (08:43)
--- NOTE | 2023-08-19 20:30 | Hospitalist Progress Note ---
Date of Service August 19, 2023 Assessment & Plan (1) Stroke-like symptoms: Plan: Stroke ruled out. Patient's reported that she was mumbling, had incoherent speech, had inability to stand on 08/13/23 when she was found on the floor. Extensive w/u to date negative including MRI brain and EEG. Only abnormality seen is that of LFTs - t bili, alk phos, and AST all elevated. RUQ u/s without signs of cholecystitis or choledocholithiasis. MRCP returned negative for choledocholithiasis as well. EEG neg for seizure. COVID/flu/RSV negative. Deferred repeat CTA head/neck as these were both normal in spring 2022. Echo in 02/2023 also wnl and did not show a source for embolus. Her daughter expressed concerns that perhaps recent dose increase in Namenda in the last 2 weeks had caused side effects, more confusion, etc. Cont to HOLD Namenda - I do believe her daughter is right regarding the Namenda. I have noted a positive difference since stopping it last week. Etiology and significance of mildly elevated LFTs uncertain but they are nearly normal at this point. Not sure if they were contributing in any fashion to her presentation. Repeat LFTs in am. (2) Dementia: Plan: Per neuro office notes she has baseline dementia. Superimposed encephalopathy is improved. Cont to HOLD Namenda as above. Cont low-dose risperdal 0.25mg HS; no apparent side effects. Sleeping well at night. (3) Elevated transaminase level: Plan: Etiology uncertain LFTs continue to improve cont to hold statin CT abd/pelvis, U/S of GB, and MRCP all with distended GB but no stones and normal CBD checked HIDA scan due to gall bladder distension seen on the above studies - negative/normal simply repeat LFTs in AM if they remain same or worsen consider Biofire, mono titers, CMV, etc (4) GERD without esophagitis: Plan: not on meds for such at home but given her GI complaints, h/o gastroparesis, etc -- added PPI daily (5) Hyponatremia: Plan: improved/resolved suspect solute deficient based on daughter's report of very poor po intake chronically Na level improved with saline & improved appetite Na level am (6) Acute encephalopathy: Plan: continue risperdal 0.25mg HS B12 wnl Brain MRI wnl B1 level pending; place on empiric thiamine BID while awaiting level Plan DVT proph - lovenox PT and OT recommending rehab - social work assisting with such daughter extensively updated at bedside late last week Admission and Anticipated Discharge Date Admission Date: August 15, 2023 Subjective flowsheets show following po intake - breakfast 75% lunch 25-50% dinner 0% during the visit she had pleasant confusion no agitation was in good spirits she recalled that her daughter "lives 3 hours from here" (which is correct) she could not offer much in the way of pertinent history did sleep well overnight per nursing documentation Review of Systems Review of Systems: cv - no chest pain pulm - no cough GI - no pain or vomiting Physical Exam Physical Exam: gen - NAD, pleasantly confused, looks well neck - no JVD mouth - MMM heart - RRR, s1 s2, no murmur lungs - CTA b/l abd - soft ND NT BS+; no HSM ext - no edema, pulses 2+ b/l psych - awake, alert, not agitated; oriented to person only Results & Data Results & Data Vital Signs (Past 12 Hours) Vital Signs Temp Pulse Pulse Resp BP Pulse Ox O2 Del Method 08/19/23 19:33 36.4 C L 78 18 156/87 H 97 Room Air 08/19/23 15:43 74 08/19/23 15:03 36.6 C 70 18 125/82 95 Room Air 08/19/23 11:14 36.5 C 71 18 114/76 96 Room Air PG Care Time/CCT Total # of Minutes Spent Total Time Spent with Patient: Total time spent is greater than 50% in coordination of care (as documented) at patient's floor/unit and/or counseling patient: Coding Level of Care Code 96764 SUB INP/OBS CARE 25MIN Diagnoses Stroke-like symptoms R29.90 Dementia F03.90 Elevated transaminase level R74.01 GERD without esophagitis K21.9 Hyponatremia E87.1 Acute encephalopathy G93.40
[2023-08-19] MEDS: ACETAMINOPHEN 325 MG TAB PO PRN (20:46)
[2023-08-19] MEDS: MELATONIN 3 MG TAB PO SCH (20:47)
[2023-08-19] MEDS: ESCITALOPRAM OXALATE 10 MG TAB PO SCH (20:47)
[2023-08-19] MEDS: risperiDONE 0.5 MG TABLET PO SCH (20:47)
[2023-08-19] MEDS: ENOXAPARIN INJ 40 MG/0.4 ML SYR SQ SCH (21:15)
[2023-08-20] MEDS: ONDANSETRON INJ 2 MG/ML 2 ML VIAL IV PRN (08:12)
[2023-08-20] MEDS: OXYBUTYNIN CHLORIDE XL 5 MG TABCR PO SCH (08:15)
[2023-08-20] MEDS: ASPIRIN 81 MG ECTAB PO SCH (08:15)
[2023-08-20] MEDS: PANTOprazole 40 MG TAB PO SCH (08:15)
[2023-08-20] MEDS: THIAMINE HCL 200 MG in SODIUM CHLORIDE 0.9% 50 ML IV SCH ×2 (08:20→20:35)
[2023-08-20 10:58] LABS: Albumin Globulin Ratio 1.5 (0.9-2); BUN Creatinine Ratio 8.1 (10-20); Bilirubin,Total 0.7 mg/dl (0.2-1.0); Calcium 8.8 mg/dl (8.6-10.3); Creatinine Clr Calc Pharmacy 51.4 ml/min; Est GFR (African American) 90.6 ml/min; Est GFR (Non-African American) 78.1 ml/min; Globulin 2.7 gm/dl (2.5-4.0); Potassium 4.1 mmol/L (3.5-5.1); Total Protein 6.7 gm/dl (6.0-8.3)
--- NOTE | 2023-08-20 12:59 | Hospitalist Progress Note ---
Date of Service August 20, 2023 Assessment & Plan (1) Stroke-like symptoms: Plan: Stroke ruled out. Patient's reported that she was mumbling, had incoherent speech, had inability to stand on 08/13/23 when she was found on the floor at their home. Extensive w/u to date negative including MRI brain and EEG. Only abnormality seen was that of LFTs - t bili, alk phos, and AST all elevated at presentation, but all trending down. RUQ u/s without signs of cholecystitis or choledocholithiasis. MRCP returned negative for choledocholithiasis as well. HIDA negative. EEG neg for seizure. COVID/flu/RSV negative. Deferred repeat CTA head/neck as these were both normal in spring 2022. Echo in 02/2023 also wnl and did not show a source for embolus. Her daughter expressed concerns that perhaps recent dose increase in Namenda in the last 2 weeks had caused side effects, more confusion, etc. Cont to HOLD Namenda - I do believe her daughter is right regarding the Namenda. Patient has improved since the Namenda was discontinued. Etiology and significance of mildly elevated LFTs uncertain but they are nearly normal. (2) Dementia: Plan: Per neuro office notes she has baseline dementia. Superimposed encephalopathy -- improved/resolved. Cont to HOLD Namenda as above. Cont low-dose risperdal 0.25mg HS; no apparent side effects. Sleeping well at night. per daughter's request we have lowered her lexapro dose from 15mg/day to 10mg/day (3) Elevated transaminase level: Plan: Etiology uncertain LFTs continue to improve; near normal today CT abd/pelvis, U/S of GB, and MRCP all with distended GB but no stones and normal CBD checked HIDA scan due to gall bladder distension seen on the above studies - negative/normal repeat LFTs in 2-3 days cont to hold statin (4) GERD without esophagitis: Plan: not on meds for such at home but given her previous GI complaints, h/o gastroparesis, etc -- added PPI daily (5) Hyponatremia: Plan: chronic dating back to 2018 Na level range 128-136 average ~132 Na level today - 132 Urine Na level is 19 - this would suggest solute deficiency family reports very poor appetite chronically we have seen such at times while here would not restrict diet in any way trend the Na level while here (6) Acute encephalopathy: Plan: continue risperdal 0.25mg HS improved B12 wnl Brain MRI wnl B1 level pending; placed on empiric thiamine BID while awaiting level Plan DVT proph - lovenox PT and OT recommending rehab - social work assisting with such --> [facility] post discharge?? daughter extensively updated at bedside late last week updated at bedside today can d/c telemetry - has been stable Admission and Anticipated Discharge Date Admission Date: August 15, 2023 Subjective no issues overnight slept well per nursing documentation during the visit her was present at bedside she denied any complaints he felt that she looked "really good" ate decent breakfast stated that for the first time she knew she was in the hospital Review of Systems Review of Systems: GI - denies abd pain or nausea today Physical Exam Physical Exam: gen - NAD, mild confusion (baseline), looks well neck - no JVD mouth - MMM heart - RRR, s1 s2, no murmur lungs - CTA b/l abd - soft ND NT BS+; no HSM ext - no edema, pulses 2+ b/l psych - awake, alert, not agitated; oriented to person and place today Results & Data Results & Data Vital Signs (Past 12 Hours) Vital Signs Temp Pulse Pulse Resp BP BP Pulse Ox 08/20/23 11:21 36.4 C L 75 18 124/70 98 08/20/23 07:47 36.9 C 76 16 155/80 H 99 08/20/23 06:08 36.4 C L 78 18 167/98 H 98 08/20/23 05:57 65 O2 Del Method 08/20/23 11:21 Room Air 08/20/23 07:47 Room Air 08/20/23 06:08 Room Air 08/20/23 05:57 Laboratory Results Laboratory Results - last 24 hr 08/20/23 10:06 Sodium 132 L Potassium 4.1 Chloride 98 Carbon Dioxide 28 Anion Gap 6 BUN 6 Creatinine 0.74 Est Cr Clr Drug Dosing 51.4 Est GFR ( Amer) 90.6 Est GFR (Non-Af Amer) 78.1 BUN/Creatinine Ratio 8.1 L Glucose 101 H Calcium 8.8 Total Bilirubin 0.7 AST 40 H ALT 44 Alkaline Phosphatase 136 H Total Protein 6.7 Albumin 4.0 Globulin 2.7 Albumin/Globulin Ratio 1.5 PG Care Time/CCT Total # of Minutes Spent Total Time Spent with Patient: Total time spent is greater than 50% in coordination of care (as documented) at patient's floor/unit and/or counseling patient: Coding Level of Care Code 84052 SUB INP/OBS CARE 1/25MIN Diagnoses Stroke-like symptoms R29.90 Dementia F03.90 Elevated transaminase level R74.01 GERD without esophagitis K21.9 Hyponatremia E87.1 Acute encephalopathy G93.40
[2023-08-20] MEDS: risperiDONE 0.5 MG TABLET PO SCH (20:34)
[2023-08-20] MEDS: ESCITALOPRAM OXALATE 10 MG TAB PO SCH (20:34)
[2023-08-20] MEDS: ENOXAPARIN INJ 40 MG/0.4 ML SYR SQ SCH (20:35)
[2023-08-20] MEDS: MELATONIN 3 MG TAB PO SCH (20:40)
[2023-08-21] MEDS: ONDANSETRON INJ 2 MG/ML 2 ML VIAL IV PRN (08:28)
[2023-08-21] MEDS: THIAMINE HCL 200 MG in SODIUM CHLORIDE 0.9% 50 ML IV SCH ×2 (08:31→22:04)
[2023-08-21] MEDS: PANTOprazole 40 MG TAB PO SCH (08:32)
[2023-08-21] MEDS: OXYBUTYNIN CHLORIDE XL 5 MG TABCR PO SCH (08:32)
[2023-08-21] MEDS: ASPIRIN 81 MG ECTAB PO SCH (08:32)
--- NOTE | 2023-08-21 18:10 | Hospitalist Progress Note ---
Date of Service August 21, 2023 Assessment & Plan (1) Stroke-like symptoms: Plan: Stroke ruled out. Patient's reported that she was mumbling, had incoherent speech, had inability to stand on 08/13/23 when she was found on the floor at their home. Extensive workup negative including MRI brain and EEG. Only abnormality seen was that of LFTs - t bili, alk phos, and AST all elevated at presentation, but all trending down. RUQ u/s without signs of cholecystitis or choledocholithiasis. MRCP returned negative for choledocholithiasis as well. HIDA negative. EEG neg for seizure. COVID/flu/RSV negative. Deferred repeat CTA head/neck as these were both normal in spring 2022. Echo in 02/2023 also wnl and did not show a source for embolus. Her daughter expressed concerns that perhaps recent dose increase in Namenda in the last 2 weeks had caused side effects, more confusion, etc. Cont to HOLD Namenda - I do believe her daughter is right regarding the Namenda. Patient has improved since the Namenda was discontinued. Etiology and significance of mildly elevated LFTs uncertain but they are nearly normal. (2) Dementia: Plan: Per neuro office notes she has baseline dementia. Superimposed encephalopathy -- improved/resolved. Cont to HOLD Namenda as above. Cont low-dose risperdal 0.25mg HS; no apparent side effects. Sleeping well at night. per daughter's request we have lowered her lexapro dose from 15mg/day to 10mg/day (3) Elevated transaminase level: Plan: Etiology uncertain LFTs continue to improve; virtually normal 08/21 CT abd/pelvis, U/S of GB, and MRCP all with distended GB but no stones and normal CBD checked HIDA scan due to gall bladder distension seen on the above studies - negative/normal -perhaps passed some sludge cont to hold statin but should be ok to resume on discharge (4) GERD without esophagitis: Plan: not on meds for such at home but given her previous GI complaints, h/o gastroparesis, etc -- added PPI daily (5) Hyponatremia: Plan: chronic dating back to 2017 Na level range 128-136 average ~132 Na level 08/21 - 132. Has not been low enough to cause symptoms Urine Na level is 19 - this would suggest solute deficiency family reports very poor appetite chronically we have seen such at times while here would not restrict diet in any way (6) Acute encephalopathy: Plan: continue risperdal 0.25mg HS improved B12 wnl Brain MRI wnl B1 level pending; placed on empiric thiamine BID while awaiting level Plan DVT proph - lovenox Discussed with care coordination - plan is for return home with and 24h care by family tomorrow daughter extensively updated at bedside late last week updated at bedside 08/20 Admission and Anticipated Discharge Date Admission Date: August 15, 2023 Subjective sitting in chair, oriented to hospital but forgetful, no complaints. No dyspnea, CP, abd pain. Physical Exam 2 Physical Exam: PHYSICAL EXAMINATION Last 24h vital signs reviewed, see documentation in flowsheet General: comfortable appearing, no distress HEENT: Normocephalic, atraumatic, pupils round and equal, sclerae anicteric, no conjunctival injection, moist mucus membranes Lungs: Normal respiratory effort. Clear to auscultation bilaterally. No RRW Heart: Regular rate and rhythm, no murmurs. No JVD Abdomen: Soft, nontender, nondistended. Bowel sounds present. Extremities: Warm, dry, well-perfused. No extremity edema. Neuro: Alert and oriented x hospital partially to situation, pleasantly confused/forgetful, face symmetric, moves 4 extremities well Psych: Normal affect and behavior Results & Data Results & Data Vital Signs (Past 12 Hours) Vital Signs Temp Pulse Resp BP BP Pulse Ox O2 Del Method 08/21/23 15:22 36.4 C L 78 18 104/70 99 Room Air 08/21/23 15:14 36.6 C 78 18 108/72 97 Room Air 08/21/23 12:12 36.3 C L 72 14 120/76 96 Room Air 08/21/23 11:27 36.0 C L 61 16 139/68 95 Room Air 08/21/23 07:34 36.6 C 83 16 124/76 98 Room Air Laboratory Results 08/14/23 12:21 08/20/23 10:06 PG Care Time/CCT Total # of Minutes Spent Total Time Spent with Patient: Total time spent is greater than 50% in coordination of care (as documented) at patient's floor/unit and/or counseling patient: Coding Level of Care Code 17284 SUB INP/OBS CARE 2/35MIN Diagnoses Stroke-like symptoms R29.90 Dementia F03.90 Elevated transaminase level R74.01 GERD without esophagitis K21.9 Hyponatremia E87.1 Acute encephalopathy G93.40
[2023-08-21] MEDS: ENOXAPARIN INJ 40 MG/0.4 ML SYR SQ SCH (22:16)
[2023-08-21] MEDS: MELATONIN 3 MG TAB PO SCH (22:18)
[2023-08-21] MEDS: ESCITALOPRAM OXALATE 10 MG TAB PO SCH (22:18)
[2023-08-21] MEDS: risperiDONE 0.5 MG TABLET PO SCH (22:19)
[2023-08-22] MEDS: OXYBUTYNIN CHLORIDE XL 5 MG TABCR PO SCH (08:56)
[2023-08-22] MEDS: PANTOprazole 40 MG TAB PO SCH (08:56)
[2023-08-22] MEDS: ASPIRIN 81 MG ECTAB PO SCH (08:56)
[2023-08-22] MEDS: ONDANSETRON INJ 2 MG/ML 2 ML VIAL IV PRN (09:03)
[2023-08-22] MEDS: THIAMINE HCL 200 MG in SODIUM CHLORIDE 0.9% 50 ML IV SCH (09:07)
--- NOTE | 2023-08-22 18:10 | Discharge Summary ---
Date of Service August 22, 2023 Admission HPI Per Admitting Provider Marlene is a 78yo female with PMH of cognitive decline, GERD, urinary incontinence, possible TIA. She presented via EMS for AMS x1 day. At around 1230 on 08/13, patient's (Gurmeet) came inside and found her laying prone on the bedroom floor, looking under the bed for something. When he went to get her up, she was unable to stand on her own, and was "chattering gibberish", and was unable to answer him. He denies seeing facial droop, but notes that she had trouble standing when she had a "mini stroke" in February 2023. Per patient's , today was an acute change from her cognitive baseline. Patient is a poor historian, but denies falling. She further denies head, neck, or shoulder pain. Patient also did not take her medications this morning, which had laid out for her; no aspirin or memantine. Per , cognitive decline has been ongoing over the past couple years. She has had ongoing LE weakness; worked PT/OT over the summer; walker at baseline. FMHx: patient's father from a stroke. Patient's denies history of liver issues, seizures, or recent fevers/infections patient is hypertensive at 180/100 on admission; vitals otherwise stable. ROS: Patient is a questionable historian, but denies recent falls, fevers, chills, facial droop, CP, pleuritic CP, SOB, abdominal pain, or urinary symptoms. Principal Diagnosis Acute toxic encephalopathy, likely provoked by memantine dose increase Discharge Exam PHYSICAL EXAMINATION Last 24h vital signs reviewed, see documentation in flowsheet Exam unchanged 08/22 General: comfortable appearing, no distress, sitting in bed HEENT: Normocephalic, atraumatic, pupils round and equal, sclerae anicteric, no conjunctival injection, moist mucus membranes Lungs: Normal respiratory effort. Clear to auscultation bilaterally. No RRW Heart: Regular rate and rhythm, no murmurs. No JVD Abdomen: Soft, nontender, nondistended. Bowel sounds present. Extremities: Warm, dry, well-perfused. No extremity edema. Neuro: Alert and oriented x hospital partially to situation, pleasantly confused/forgetful, face symmetric, moves 4 extremities well Psych: Normal affect and behavior Discharge Data Allergies Allergy/AdvReac Type Severity Reaction Status Date / Time Sulfa (Sulfonamide Allergy Intermediate HIVES Verified 08/13/23 17:43 Antibiotics) Penicillins Allergy Mild RASH Verified 08/13/23 17:43 doxycycline AdvReac Nausea and Verified 08/13/23 17:43 vomiting Consultations 08/13/23 18:45 ED Decision to Admit Stat Ordered Studies 08/13/23 15:[address] [CT head/brain wo con] Stat 08/14/23 01:13 MR brain wo con Urgent 08/14/23 14:26 US gallbladder Stat 08/15/23 13:35 MR MRCP Urgent Chest X-Ray 08/13/23 15:26 XR chest 1V portable HISTORY: 78 years-old Female weakness COMPARISON: 02/25/2023 TECHNIQUE: AP view of the chest FINDINGS: Cardiomediastinal and hilar silhouettes are within normal limits. No pneumothorax, pleural effusion or airspace consolidation. The bones appear grossly intact. IMPRESSION: No acute process. ACT 112: Negative or not required by law. The above report was generated using voice recognition software. It may contain grammatical, syntax or spelling errors. Electronically signed by: Rigo Honeycutt M.D. 08/13/2023 4:[address] 08/13/23 15:53 CT SCAN OF THE BRAIN WITHOUT IV CONTRAST CLINICAL HISTORY: Change in mental status. COMPARISON STUDY: CT of the brain dated 02/25/2023. MRI of the brain dated 02/26/2023. TECHNIQUE: Unenhanced axial CT scan of the brain is performed from the vertex to the skull base. A dose lowering technique was utilized adhering to the principles of ALARA. CT DOSE: 625.8 mGy.cm FINDINGS: Brain parenchyma: There is age-related involutional change noting moderate to advanced confluent subcortical and periventricular microangiopathic disease. There is no hemorrhage, mass effect, or evidence of acute territorial ischemia by CT criteria. Skinner-white matter differentiation is preserved. No extra-axial fluid collection is seen. Ventricles, sulci, cisterns: Prominent secondary to involutional change. Intracranial vasculature: There is atherosclerotic calcification of the cavernous carotid arteries. Calvarium: Unremarkable. Sinuses and mastoids: The visualized paranasal sinuses are clear. The mastoid air cells are well pneumatized. Orbits: The bony orbits are grossly intact. IMPRESSION: There is no hemorrhage, mass effect, or evidence of acute territorial ischemia by CT criteria. ACT 112: Negative or not required by law. Electronically signed by: Osmar Altamirano M.D. 08/13/2023 5:01 PM Brain MRI 08/14/23 01:13 Exam(s): MRI HEAD Without Contrast EXAM: MR Head Without Intravenous Contrast CLINICAL HISTORY: Reason for exam: CVA/TIA r/o. TECHNIQUE: Magnetic resonance images of the head/brain without intravenous contrast in multiple planes. Moderate motion artifact. COMPARISON: Head CT 08/13/23, and MRI brain 02/26/23. FINDINGS: Brain: No mass effect or acute infarct. No acute hemorrhage. Moderate atrophy and chronic white matter disease, stable, given differences in technique. Ventricles: No hydrocephalus or midline shift. Bones/joints: No acute finding. Soft tissues: No scalp hematoma. Sinuses: Clear. Mastoid air cells: No mastoid effusion. IMPRESSION: 1. Stable, moderate age related findings. 2. No acute infarct, bleed, or acute intracranial abnormality. 3. No significant interval change. 4. Moderate motion artifact. Electronically signed by: Kami Lim M.D. 08/14/23 03:38 AM Gallbladder Ultrasound 08/14/23 14:26 ABDOMINAL ULTRASOUND, RIGHT UPPER QUADRANT HISTORY: altered MS, abnl LFTs; cholecystitis?. COMPARISON: None. FINDINGS: Pancreas: The pancreatic tail is obscured by overlying bowel gas. The remaining portions of the pancreas are within normal limits. Liver: Unremarkable. Gallbladder: The gallbladder is mildly distended. There is no gallbladder wall thickening. No gallstones identified. CBD: 4 mm. Right kidney: No hydronephrosis. A few cysts with the largest measuring 4.2 cm. IMPRESSION: 1. The gallbladder is mildly distended. However, there are no gallstones and no gallbladder wall thickening. 2. Normal caliber common bile duct ACT 112: Negative or not required by law. Electronically signed by: Gilbert Campbell M.D. 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 Degenerative changes of the spine. No acute process of the imaged chest. Study is motion degraded. Unremarkable visualized solid organs. No hydronephrosis. T2 hyperintense lesions of the right kidney are suggestive of cysts are at no abdominal aortic aneurysm or lymphadenopathy. Distended gallbladder without cholelithiasis, wall thickening or pericholecystic fluid identified. Normal common bile duct, 5 mm. No choledocholithiasis or biliary strictures identified. Normal pancreatic duct. IMPRESSION: 1. Motion degraded exam. 2. Distended gallbladder without cholelithiasis, choledocholithiasis or biliary ductal dilation identified. ACT 112: Negative or not required by law. The above report was generated using voice recognition software. It may contain grammatical, syntax or spelling errors. Electronically signed by: Rigo Honeycutt M.D. 08/15/2023 6:59 PM Hepatobiliary Scan Nuclear Medicine 08/17/23 09:33 NM hepatobiliary CLINICAL HISTORY: 78 years-old Female with abnl LFTs, distended GB on CT/MR. TECHNIQUE: Sequential anterior abdominal images were obtained through 60 minutes following the intravenous administration of 5.0 mCi of technetium-99m Choletec. COMPARISON: Ultrasound 08/14/2023 FINDINGS: There is prompt, uniform accumulation of the tracer by the liver. There is normal filling of the intrahepatic ducts, common bile duct and minimal excretion of the tracer into the duodenum. The gallbladder fills normally. IMPRESSION: No scintigraphic evidence for cystic duct obstruction. ACT 112: Negative or not required by law. The above report was generated using voice recognition software. It may contain grammatical, syntax or spelling errors. Electronically signed by: Rigo Honeycutt M.D. 08/17/2023 2:52 PM 08/14/23 12:21 08/20/23 10:06 Hospital Course (1) Stroke-like symptoms: (2) Acute encephalopathy: Patient's reported that she was mumbling, had incoherent speech, had inability to stand on 08/13/23 when she was found on the floor at their home. She was evaluated for stroke, which was ruled out. Extensive workup negative including MRI brain and EEG. Deferred repeat CTA head/neck as these were both normal in spring 2022. Echo in 02/2023 also wnl and did not show a source for embolus. EEG neg for seizure. Only abnormality seen was that of LFTs - t bili, alk phos, and AST all elevated at presentation, see below RUQ u/s without signs of cholecystitis or choledocholithiasis. MRCP returned negative for choledocholithiasis as well. HIDA negative. LFTs normalizing COVID/flu/RSV negative. No leukocytosis/fever. UA negative. Her daughter expressed concerns that perhaps recent dose increase in Namenda in the last 2 weeks had caused side effects, more confusion, etc. I do believe her daughter is right regarding the Namenda. Patient has improved since the Namenda was discontinued. Etiology and significance of mildly elevated LFTs uncertain but they are now nearly normal. Consider repeat CMP in outpatient setting. (3) Elevated transaminase level: Etiology uncertain LFTs continue to improve; virtually normal 08/21 CT abd/pelvis, U/S of GB, and MRCP all with distended GB but no stones and normal CBD checked HIDA scan due to gall bladder distension seen on the above studies - negative/normal -perhaps passed some sludge -resumed statin on discharge -consider repeat CMP as outpatient (4) Dementia: Per neuro office notes she has baseline alzheimer's dementia. Superimposed acute encephalopathy -- resolved. Cont to HOLD Namenda as above, discontinued upon discharge. Vitamin B1 and B12 levels were normal, TSH normal per daughter's request we have lowered her lexapro dose from 15mg/day to 10mg/day Follow up with neurologist (5) GERD without esophagitis: not on meds for such at home but given her previous GI complaints, h/o gastroparesis, etc -- added PPI daily (6) Hyponatremia: mild, chronic dating back to 2017 Na level range 128-136 average ~132 Na level 08/21 - 132. Has not been low enough to cause symptoms Urine Na level is 19 - this would suggest solute deficiency family reports very poor appetite chronically we have seen such at times while here would not restrict diet in any way Plan Discussed with care coordination 08/21 - plan is for return home with and 24h care by family daughter extensively updated at bedside late last week updated at bedside 08/20 I left voicemail for her day of discharge, could not reach him at home or mobile phone but no changes in clinical course since 08/20 Total Time Total Time Spent Total Time Spent (In Minutes): 40 minutes coordinating care for discharge Discharge Plan Discharge Items Patient Disposition: Home - Home Health Services Reason For Visit: AMS Discharge Diagnosis: acute toxic encephalopathy likely related to memantine (namenda) Condition on Discharge: Fair Activity: Resume your previous activity Activity Comment: home health PT and OT will help you resume your previous level of activity Non-emergency contact: Primary Care Provider Call non-emergency contact if: you have any medication questions Follow-up/Referrals: Kenny Heath MD [Physician] - 08/28/23 11:00 am Abigail Humphrey MD [Primary Care Provider] - 08/29/23 10:15 am Diet: Regular Addtl Attending Provider Instructions: Dear Mrs Jasmine, You were evaluated for change in mental status. An extensive workup for stroke, infection, and gallbladder disease was negative I advise stopping the namenda Make an appointment to follow up with your neurologist We reduced your lexapro dose as previously discussed with your daughter We started omeprazole (acid suppression) to help with some of your chronic gastrointestinal symptoms Leisa Tang MD Pending Studies at Discharge: No Stand-Alone Forms: My [facility] [place], Smoking Cessation Medications and DC Order Prescriptions: New escitalopram oxalate 10 mg Tablet 10 mg PO HS Qty: 30 0RF omeprazole 20 mg capsule,delayed release(DR/EC) 20 mg PO DAILY Qty: 30 0RF Continued ondansetron HCl 4 mg tablet 4 mg PO Q8H PRN (Reason: nausea and vomiting) Qty: 90 2RF atorvastatin 40 mg tablet 40 mg PO QAM Qty: 90 1RF trospium 20 mg tablet 20 mg PO BID Qty: 60 2RF Rx Instructions: administer on an empty stomach calcium carbonate [Calcium 600] 600 mg calcium (1,500 mg) tablet 600 mg PO QAM cholecalciferol (vitamin D3) 25 mcg (1,000 unit) capsule 1,000 units PO QAM multivitamin with minerals [Hair,Skin and Nails] Tablet 1 tab PO QAM aspirin 81 mg Tablet,Delayed Release (Dr/Ec) 81 mg PO QAM Qty: 30 0RF Discontinued memantine 5 mg tablet 5 mg PO BID Rx Instructions: 5 mg orally take 5mg once daily for one week then 5mg twice a day thereafter; Discharge Orders: Discharge Order (Routine); Ordered 08/22/23 Ordered By: Leisa Tang Admission Data Admit Date/Time: 08/15/23 13:37 Attending Provider: Leisa Tang Admit Provider: Sang Da Silva Primary Care Provider: Abigail Humphrey V. Other Providers: Sang Da Silva; [facility],Home [facility] Other Interventions: Discharge Summary Assessment (RN) Last Done: 08/22/23 14:34 Coding Level of Care Code 38133 INP/OBS DISCH >30 MIN Diagnoses Stroke-like symptoms R29.90 Acute encephalopathy G93.40 Elevated transaminase level R74.01 Dementia F03.90 GERD without esophagitis K21.9 Hyponatremia E87.1
== END 2023-08-22 15:01 | disposition home health service (06) | DRG 92 ==
LOC: ED 14:51 → EDINP 14:51 → SUATTDRO 20:01 → 2N 21:17 → SUATTDRO 08-15 13:37 → 2W 08-15 23:01 → 3N 08-21 19:01

== ENCOUNTER 2023-10-10 14:38 | Inpatient (IN) ==
--- NOTE | 2023-10-10 14:43 | ED Triage Note ---
Date of Service October 10, 2023 Provider in Triage Author: Wanda Hernandez History of Present Illness This patient was briefly evaluated while in triage. An abbreviated physical exam was performed. This patient is a 78-year-old Female who presents to the ED for evaluation of fall out of bed 0600 noticed symtpoms at noon confusion started this morning, garbled/nonsensical speech, unable to ambulate hx of CVA in August no blood thinners. Physical Exam Initial orders for labs and / or imaging were placed and patient was placed in the waiting area until a bed is available. Please see further documentation for the full ED course.
--- NOTE | 2023-10-10 14:53 | Emergency Department Note ---
Impression & Plan Acute confusion, Ambulatory dysfunction ED Provider Note HISTORY OF PRESENT ILLNESS: Patient is a 78-year-old female presenting with confusion. Patient is unable to provide much meaningful history so history is obtained from . reports that the patient went to bed completely normal at 10 PM on 10/09/2023. Reports that he woke up at 6 AM and found the patient sound asleep on the floor. He assisted her back into bed at 6 AM. Reports that the patient was sleeping longer than normal and he went to wake her up at 12 noon on 10/10/2023 and she had significant difficulties getting out of bed and was very confused. reports the patient ambulates with a cane at baseline. Reports that she is normally alert and oriented and conversant. No reported anticoagulation use other than 81 mg of aspirin daily. Patient has no complaints on arrival to the ER. denies any recent fevers for the patient. ROS: as above PHYSICAL EXAM: Constitutional: Patient appears in no acute distress. HENT: Head: Normocephalic and atraumatic. Eyes: EOMI, PERRL Mouth/Throat: Mucous membranes moist. Neck: Trachea midline. Neck supple. Cardiovascular: RRR, No murmurs, rubs or gallops. Intact distal pulses. Pulmonary/Chest: No respiratory distress. Breath sounds clear and equal bilaterally. No wheezes or rales. Abdominal: Abdomen soft, no tenderness, rebound or guarding. Musculoskeletal: No edema, tenderness or deformity noted. Skin: Warm and dry. No rash, erythema, pallor or cyanosis Psychiatric: Appropriate mood and affect for situation. Neurological: Alert but only oriented to self. Facies symmetric. Able to raise eyebrows, close eyes, smile, puff mouth, stick out tongue, move tongue left and right and raise palate symmetrically. Able to shrug shoulders. PERRLA. SILT to forehead below eye and at jawline. Can hear soft noise bilaterally. Strength 5/5 in bilateral upper and lower extremities. SILT throughout bilateral upper and lower extremities. MDM: - Vitals signs stable. - History obtained via , given patient's confusion. Patient presents with confusion. states that patient was her last known well at 10 PM on 10/09/2023. He woke up at 6 AM and found the patient sound asleep on the floor next to the bed. He assisted her back into bed at 6 AM and states that this morning the patient was sleeping longer than normal and he woke her up to noon and found her to be very confused and had difficulties getting out of bed. She normally ambulates with a cane at baseline. Reports that she is normally able to answer questions appropriately at home. Is on 81 mg aspirin daily - Chronic conditions affecting care: HTN; GERD - Differential diagnoses include, but are not limited to: UTI; pneumonia; CVA; intracranial hemorrhage; rhabdomyolysis; ACS - Order placed for continuous cardiac monitoring. At this time, monitor showed rate of 85 bpm with normal sinus rhythm, per my interpretation. - External medical records reviewed. - EKG interpreted by myself showed normal sinus rhythm. Rate 73 bpm. QTc 460. No acute ischemic changes - Laboratory workup interpreted by myself showed normal WBC; stable electrolytes; normal troponin; normal CK; normal procalcitonin - CXR negative for pneumonia, per my interpretation. - CT head wo contrast negative for acute intracranial pathology - CTA head/neck negative for stroke or dissection. - Given patient's last known well was 10 PM on 10/09/2023 and she presents to the emergency department over 14 hours later, she is not a TNK candidate - Discussed results with patient and her . reports the patient is still very confused and is not her normal self. She did ambulate with a walker with nursing staff, but did struggle. reports concern about patient not being her normal self and he states that he had difficulties getting her off the ground this morning. - Discussion was had with intensive care unit nurse about patient's case and need for admission - Hospitalist, Dr. Knott, consulted for admission - [facility] ASSESSMENT AND PLAN: Diagnosis: acute confusion; ambulatory dysfunction Plan: admit Past Med/Surg History Medical History (Updated 10/10/23 @ 16:37 by Dalila Howell MD) Low sodium levels Dizziness Left arm numbness Arm paresthesia, right Weakness Nausea reason for upcoming procedure History of osteonecrosis DDD (degenerative disc disease) HTN (hypertension) SOBOE (shortness of breath on exertion) Cognitive and behavioral changes memory issues Anxiety Adjustment disorder with depressed mood Cyst of kidney, acquired GERD without esophagitis Osteoporosis Scoliosis mild Signs and symptoms involving cognition Surgical History Hx of colonoscopy History of cataract surgery History of tooth extraction History of esophagogastroduodenoscopy (EGD) S/P tubal ligation Family History Mother Lymphoma Hypertension Grandmother (Paternal) Breast cancer Grandfather (Maternal) Colorectal cancer Father Dementia Stroke Brother Lung cancer Stroke Other No family history of adverse response to anesthesia Denies family history of Ovarian cancer Prostate cancer Myocardial infarction Social History Smoking Status: Never smoker Second Hand Exposure: Yes; Do You Dip or Chew Tobacco: No; Hx Alcohol Use: No Hx Substance Use: No Preferred Language: Kyrgyz Communication Ability: Effective Visual Impairment: No Limitations Hearing Ability: Normal Composite Layup Worker Required: No Beliefs That Will Affect Care: None marital status: Current Living Situation: Spouse Feels Safe at Home: Yes Seatbelt Use: always Assistive Devices: Denture - Lower and Glasses Allergies Allergies Allergy/AdvReac Type Severity Reaction Status Date / Time Sulfa (Sulfonamide Allergy Intermediate HIVES Verified 10/10/23 15:27 Antibiotics) Penicillins Allergy Mild RASH Verified 10/10/23 15:27 doxycycline AdvReac Nausea and Verified 10/10/23 15:27 vomiting Home Meds Home Medications Medication Instructions Recorded Confirmed calcium carbonate 600 mg calcium 600 mg PO QAM 11/24/19 10/10/23 (1,500 mg) tablet (Calcium) multivitamin with minerals 1 tab PO QAM 01/17/21 10/10/23 (Hair,Skin and Nails tablet) cholecalciferol (vitamin D3) 25 5,000 unit PO QAM 08/29/23 10/10/23 mcg (1,000 unit) capsule ondansetron HCl 4 mg tablet 4 mg PO Q8 PRN Nausea And Vomiting 10/10/23 10/10/23 Previous Rx's Medication Instructions Recorded aspirin 81 mg tablet,delayed 81 mg PO QAM #30 tabs 02/26/23 release trospium 20 mg tablet 20 mg PO BID #60 tabs 08/02/23 escitalopram oxalate 10 mg tablet 10 mg PO HS #30 tabs 08/22/23 cholecalciferol (vitamin D3) 125 125 mcg PO DAILY #30 caps 08/28/23 mcg (5,000 unit) capsule omeprazole 40 mg capsule,delayed 40 mg PO DAILY #90 caps 08/29/23 release mirtazapine 7.5 mg tablet 7.5 mg PO DAILY #30 tabs 09/04/23 atorvastatin 40 mg tablet 40 mg PO QAM #90 tabs 10/05/23 Results & Data (ED) Vital Signs Vital Signs - 24 hr 10/10/23 14:40 10/10/23 14:58 10/10/23 14:58 Temperature 36.5 C Temperature Source Temporal Artery Scan Pulse Rate 73 Pulse Rate [Apical] 77 Pulse Rhythm Regular Pulse Strength Normal Respiratory Rate 20 16 Respiratory Effort / Characteristics Non-Labored Spontaneous Respiratory Depth Normal Respiratory Pattern Regular Blood Pressure 115/68 Blood Pressure [Left Arm] 132/76 Blood Pressure Mean 83 Blood Pressure Mean [Left Arm] 94 Blood Pressure Position Sitting Pulse Oximetry 96 99 Oxygen Delivery Method Room Air Room Air Room Air Sepsis Recent Fever Within 48 Hours No Sepsis New/Unexplained Change in Mental Status No Sepsis Action Taken by Nursing No Action Required 10/10/23 14:58 10/10/23 15:15 10/10/23 16:15 Temperature Temperature Source Pulse Rate 78 Pulse Rate [Apical] 98 H 85 Pulse Rhythm Pulse Strength Respiratory Rate 24 22 Respiratory Effort / Characteristics Respiratory Depth Respiratory Pattern Blood Pressure Blood Pressure [Left Arm] 130/69 146/80 H Blood Pressure Mean Blood Pressure Mean [Left Arm] 89 102 Blood Pressure Position Pulse Oximetry 95 94 Oxygen Delivery Method Room Air Room Air Sepsis Recent Fever Within 48 Hours Sepsis New/Unexplained Change in Mental Status Sepsis Action Taken by Nursing Laboratory Data 10/10/23 14:52 10/10/23 14:52 Lab Results 10/10/23 10/10/23 Range/Units 14:52 14:57 WBC 10.14 (4.8-10.8) K/ul RBC 4.46 (4.20-5.40) M/uL Hgb 13.9 (12.0-16.0) g/dl POC Hgb 14.3 (12.0-16.0) g/dl Hct 41.7 (37.0-47.0) % POC Hct 42 (37-47) % MCV 93.5 (80.0-100.0) fL MCH 31.2 (25.0-34.0) pg MCHC 33.3 (32.0-36.0) g/dL RDW Std Deviation 42.4 (36.4-46.3) fL RDW Coeff of Sameera 12.2 (11.5-14.5) % Plt Count 221 (130-400) K/uL MPV 10.9 (9.4-12.4) fL Immature Gran % (Auto) 0.4 % Neut % (Auto) 82.5 % Lymph % (Auto) 11.0 % [place] % (Auto) 5.1 % Eos % (Auto) 0.6 % Baso % (Auto) 0.4 % Neut # (Auto) 8.36 H (1.40-6.50) K/uL Lymph # (Auto) 1.12 L (1.20-3.40) K/uL [place] # (Auto) 0.52 (0.11-0.59) K/uL Eos # (Auto) 0.06 (0.00-0.50) K/uL Baso # (Auto) 0.04 (0.00-0.20) K/uL Immature Gran # (Auto) 0.04 (0.01-0.20) K/uL PT 10.6 (9.0-12.0) Seconds INR 1.0 (0.9-1.1) APTT 24 (21-31) Seconds PTT Ratio 0.9 POC Sodium 142 (135-144) mmol/L Sodium 140 (136-145) mmol/L POC Potassium 4.2 (3.3-5.0) mmol/L Potassium 4.1 (3.5-5.1) mmol/L POC Chloride 103 (101-112) mmol/L Chloride 105 (98-107) mmol/L Carbon Dioxide 29 (21-32) mmol/L POC Total CO2 26 (24-31) mmol/L Anion Gap 6 (3-11) POC Anion Gap 19.0 (16-25) mmol/L POC BUN 23 H (7-18) mg/dl BUN 23 (6-23) mg/dl Creatinine 1.01 (0.6-1.2) mg/dl POC Creatinine 1.1 (0.6-1.3) mg/dl Est Cr Clr Drug Dosing 37.8 ml/min Est GFR ( Amer) 62.2 ml/min Est GFR (Non-Af Amer) 53.7 ml/min BUN/Creatinine Ratio 22.8 H (10-20) Glucose 138 H (70-99(Fasting)) mg/dl POC Glucose (other) 144 H (70-99) mg/dl Calcium 9.3 (8.6-10.3) mg/dl POC Ioniz Calcium Ness 1.24 (1.12-1.32) mmol/l Magnesium 2.1 (1.7-2.4) mg/dl Total Bilirubin 1.3 H (0.2-1.0) mg/dl AST 34 (13-39) U/L ALT 25 (7-52) U/L Alkaline Phosphatase 157 H (34-104) U/L Total Creatine Kinase 132 (26-192) U/L Troponin I High Sens 3.9 (0-14) pg/ml Total Protein 7.6 (6.0-8.3) gm/dl Albumin 4.2 (3.4-5.0) gm/dl Globulin 3.4 (2.5-4.0) gm/dl Albumin/Globulin Ratio 1.2 (0.9-2) Procalcitonin < 0.05 (0-0.5) ng/ml Blood Type O Positive Antibody Screen NEGATIVE Administered Medications Discontinued Medications Ioversol (Optiray 320 125ml) 116 ml IV ONCE ONE Stop: 10/10/23 15:05 Last Admin: 10/10/23 15:04 Dose: 116 ml Documented By: KATJA Imaging Data Radiologist's Impression: Chest X-Ray 10/10/23 14:49 XR chest 1V portable CLINICAL HISTORY: Altered mental status. COMPARISON STUDY: Chest radiograph August 13, 2023. FINDINGS: Lung volumes are normal. Lungs are clear. There is no pneumothorax or pleural effusion. Cardiac size is normal. Mediastinal contours are normal. There is no evidence for pulmonary edema. IMPRESSION: No acute cardiopulmonary findings. No change in appearance of the chest. ACT 112: Negative or not required by law. Electronically signed by: Crow Deal M.D. 10/10/2023 3:[address] 10/10/23 14:49 CT SCAN OF THE BRAIN WITHOUT IV CONTRAST CLINICAL HISTORY: Change in mental status. Gait instability. COMPARISON STUDY: CT of the brain dated 08/13/2023. MRI of the brain dated 08/14/2023. TECHNIQUE: Unenhanced axial CT scan of the brain is performed from the vertex to the skull base. A dose lowering technique was utilized adhering to the principles of ALARA. FINDINGS: Brain parenchyma: There is age-related involutional change noting advanced confluent subcortical and periventricular microangiopathic disease. There is no hemorrhage, mass effect, or evidence of acute territorial ischemia by CT criteria. Skinner-white matter differentiation is preserved. No extra-axial fluid collection is seen. Ventricles, sulci, cisterns: Prominent secondary to involutional change. Intracranial vasculature: There is atherosclerotic calcification of the cavernous carotid arteries. Calvarium: Unremarkable. Sinuses and mastoids: The visualized paranasal sinuses are clear. The mastoid air cells are well pneumatized. Orbits: The bony orbits are grossly intact. There are bilateral ocular lens implants. IMPRESSION: There is no hemorrhage, mass effect, or evidence of acute territorial ischemia by CT criteria. ACT 112: Negative or not required by law. Electronically signed by: Osmar Altamirano M.D. 10/10/2023 3:26 PM Head CTA 10/10/23 14:49 CTA ANGIOGRAPHY OF THE HEAD CLINICAL HISTORY: neuro deficit, acute stroke suspected COMPARISON STUDY: Head CT August 13, 2023. MRI of the brain August 14, 2023. CTA of the head February 25, 2023. TECHNIQUE: Helical axial images of the head were obtained following uneventful intravenous administration of 116 cc of Optiray. Sagittal and coronal reconstructions were viewed as well as maximal intensity projections on an independent 3-D workstation. Automated exposure control was utilized for the study. A dose lowering technique was utilized adhering to the principles of ALARA. CT DOSE: 1343.3 mGy.cm FINDINGS: Ventricular system is stable. Basal cisterns are patent. No extra- axial collections are present. White matter hypodensity suggests small vessel disease. No acute intracranial hemorrhage is identified. The bilateral M1, M2, A1 and A2 segments are patent. No vessel occlusion is identified. There is minimal plaque within the cavernous carotids without stenosis. The posterior circulation is also intact. There is persistence of the right posterior cerebral artery. IMPRESSION: No vessel occlusion. No intracranial aneurysm. ACT 112: Negative or not required by law. Electronically signed by: Crow Deal M.D. 10/10/2023 3:43 PM Neck CTA 10/10/23 14:49 CT angio neck with con CLINICAL HISTORY: 78 years-old Female with neuro deficit, acute stroke suspected. Acute stroke like symptoms COMPARISON STUDY: CTA head of same day TECHNIQUE: Following the IV administration of 116 mL of Optiray, CT angiogram of the neck was performed from the aortic arch to the skull base. Images are reviewed in the axial, sagittal, and coronal planes. 3-D MIPS images are created and assessed. IV contrast was administered without complication. All measurements were calculated based on NASCET criteria. A dose lowering technique was utilized adhering to the principles of ALARA. FINDINGS: Three-vessel morphology of the thoracic aortic arch. Patency of the innominate image subclavian arteries. The common and internal carotid arteries are patent. Mild atherosclerotic plaque of the carotid bulbs. Codominant and patent vertebral arteries. No aneurysm, dissection, high-grade stenosis or arterial occlusion identified. Lung apices appear clear. No pneumothorax. Unremarkable soft tissues. No acute fracture. IMPRESSION:Mild atherosclerosis without aneurysm, dissection, high-grade stenosis or arterial occlusion. ACT 112: Negative or not required by law. The above report was generated using voice recognition software. It may contain grammatical, syntax or spelling errors. Electronically signed by: Rigo Honeycutt M.D. 10/10/2023 3:35 PM Discharge Plan Visit Data Chief Complaint: Neuro Symptoms/Deficit Stated Complaint: UNABLE TO AMBULATE, CANT TALK, DOESNT KNOW NAME ED Provider: Dalila Howell Discharge Problem: Acute confusion, Ambulatory dysfunction Forms Stand Alone Forms: My [facility] Prescriptions Prescriptions: No Action trospium 20 mg tablet 20 mg PO BID Qty: 60 2RF Rx Instructions: administer on an empty stomach mirtazapine 7.5 mg tablet 7.5 mg PO DAILY Qty: 30 1RF atorvastatin 40 mg tablet 40 mg PO QAM Qty: 90 1RF calcium carbonate [Calcium 600] 600 mg calcium (1,500 mg) tablet 600 mg PO QAM cholecalciferol (vitamin D3) 25 mcg (1,000 unit) capsule 5,000 unit PO QAM cholecalciferol (vitamin D3) 125 mcg (5,000 unit) capsule 125 mcg PO DAILY Qty: 30 3RF omeprazole 40 mg capsule,delayed release(DR/EC) 40 mg PO DAILY Qty: 90 1RF multivitamin with minerals [Hair,Skin and Nails] Tablet 1 tab PO QAM aspirin 81 mg Tablet,Delayed Release (Dr/Ec) 81 mg PO QAM Qty: 30 0RF escitalopram oxalate 10 mg Tablet 10 mg PO HS Qty: 30 0RF ondansetron HCl 4 mg tablet 4 mg PO Q8 PRN (Reason: Nausea And Vomiting) Referrals Referrals: Abigail Humphrey MD [Primary Care Provider] -
[2023-10-10] MEDS ORDERED: OPTIRAY 320 125ml IV ONE (15:04)
[2023-10-10 15:10] LABS: iSTAT Creatinine 1.1 mg/dl (0.6-1.3); iSTAT Hemoglobin 14.3 g/dl (12.0-16.0); iSTAT Ionized Calcium 1.24 mmol/l (1.12-1.32); iSTAT Potassium 4.2 mmol/L (3.3-5.0)
--- NOTE | 2023-10-10 15:27 | CT Scan Report ---
CT SCAN OF THE BRAIN WITHOUT IV CONTRAST CLINICAL HISTORY: Change in mental status. Gait instability. COMPARISON STUDY: CT of the brain dated 08/13/2023. MRI of the brain dated 08/14/2023. TECHNIQUE: Unenhanced axial CT scan of the brain is performed from the vertex to the skull base. A do se lowering technique was utilized adhering to the principles of ALARA. FINDINGS: Brain parenchyma: There is age-related involutional change noting advanced confluent subcortical and periventricular microangiopathic disease. There is no hemorrhage, mass effect, or evidence of acute t erritorial ischemia by CT criteria. Skinner-white matter differentiation is preserved. No extra-axial fl uid collection is seen. Ventricles, sulci, cisterns: Prominent secondary to involutional change. Intracranial vasculature: There is atherosclerotic calcification of the cavernous carotid arteries. Calvarium: Unremarkable. Sinuses and mastoids: The visualized paranasal sinuses are clear. The mastoid air cells are well pneu matized. Orbits: The bony orbits are grossly intact. There are bilateral ocular lens implants. IMPRESSION: There is no hemorrhage, mass effect, or evidence of acute territorial ischemia by CT ayush acosta. ACT 112: Negative or not required by law. Electronically signed by: Osmar Altamirano M.D. 10/10/2023 3:26 PM
[2023-10-10 15:29] LABS: Basophils # (auto) 0.04 K/uL (0.00-0.20); Basophils % (auto) 0.4 %; Eosinophils # (auto) 0.06 K/uL (0.00-0.50); Eosinophils % (auto) 0.6 %; Hematocrit (blood only) 41.7 % (37.0-47.0); Hemoglobin 13.9 g/dl (12.0-16.0); Immature Granulocytes # (auto) 0.04 K/uL (0.01-0.20); Immature Granulocytes % (auto) 0.4 %; Lymphocytes # (auto) 1.12 K/uL (1.20-3.40); Mean Corpuscular Hemoglobin 31.2 pg (25.0-34.0); Mean Corpuscular Hgb Conc 33.3 g/dL (32.0-36.0); Mean Corpuscular Volume 93.5 fL (80.0-100.0); Mean Platelet Volume 10.9 fL (9.4-12.4); Monocytes # (auto) 0.52 K/uL (0.11-0.59); Monocytes % (auto) 5.1 %; Neutrophils # (auto) 8.36 K/uL (1.40-6.50); Neutrophils % (auto) 82.5 %; Platelet Count 221 K/uL (130-400); RDW Coefficient of Variation 12.2 % (11.5-14.5); RDW Standard Deviation 42.4 fL (36.4-46.3); Red Blood Count 4.46 M/uL (4.20-5.40); White Blood Count 10.14 K/ul (4.8-10.8)
--- NOTE | 2023-10-10 15:36 | CT Scan Report ---
CT angio neck with con CLINICAL HISTORY: 78 years-old Female with neuro deficit, acute stroke suspected. Acute stroke lik e symptoms COMPARISON STUDY: CTA head of same day TECHNIQUE: Following the IV administration of 116 mL of Optiray, CT angiogram of the neck was perform ed from the aortic arch to the skull base. Images are reviewed in the axial, sagittal, and coronal pl anes. 3-D MIPS images are created and assessed. IV contrast was administered without complication. Al l measurements were calculated based on NASCET criteria. A dose lowering technique was utilized adhe ring to the principles of ALARA. FINDINGS: Three-vessel morphology of the thoracic aortic arch. Patency of the innominate image subclavian arter ies. The common and internal carotid arteries are patent. Mild atherosclerotic plaque of the carotid bulbs. Codominant and patent vertebral arteries. No aneurysm, dissection, high-grade stenosis or natacha rial occlusion identified. Lung apices appear clear. No pneumothorax. Unremarkable soft tissues. No acute fracture. IMPRESSION:Mild atherosclerosis without aneurysm, dissection, high-grade stenosis or arterial occlusi on. ACT 112: Negative or not required by law. The above report was generated using voice recognition software. It may contain grammatical, syntax o r spelling errors. Electronically signed by: Rigo Honeycutt M.D. 10/10/2023 3:35 PM
--- NOTE | 2023-10-10 15:39 | XRay Report ---
XR chest 1V portable CLINICAL HISTORY: Altered mental status. COMPARISON STUDY: Chest radiograph August 13, 2023. FINDINGS: Lung volumes are normal. Lungs are clear. There is no pneumothorax or pleural effusion. Car diac size is normal. Mediastinal contours are normal. There is no evidence for pulmonary edema. IMPRESSION: No acute cardiopulmonary findings. No change in appearance of the chest. ACT 112: Negative or not required by law. Electronically signed by: Crow Deal M.D. 10/10/2023 3:38 PM
[2023-10-10 15:44] LABS: Albumin Globulin Ratio 1.2 (0.9-2); Albumin Level 4.2 gm/dl (3.4-5.0); BUN Creatinine Ratio 22.8 (10-20); Bilirubin,Total 1.3 mg/dl (0.2-1.0); Calcium 9.3 mg/dl (8.6-10.3); Creatinine Clr Calc Pharmacy 37.8 ml/min; Est GFR (African American) 62.2 ml/min; Est GFR (Non-African American) 53.7 ml/min; Globulin 3.4 gm/dl (2.5-4.0); Magnesium 2.1 mg/dl (1.7-2.4); Potassium 4.1 mmol/L (3.5-5.1); Total Protein 7.6 gm/dl (6.0-8.3)
--- NOTE | 2023-10-10 15:45 | CT Scan Report ---
CTA ANGIOGRAPHY OF THE HEAD CLINICAL HISTORY: neuro deficit, acute stroke suspected COMPARISON STUDY: Head CT August 13, 2023. MRI of the brain August 14, 2023. CTA of the head February 062022. TECHNIQUE: Helical axial images of the head were obtained following uneventful intravenous administr ation of 116 cc of Optiray. Sagittal and coronal reconstructions were viewed as well as maximal inten sity projections on an independent 3-D workstation. Automated exposure control was utilized for the study. A dose lowering technique was utilized adhering to the principles of ALARA. CT DOSE: 1343.3 mGy.cm FINDINGS: Ventricular system is stable. Basal cisterns are patent. No extra-axial collections are pre sent. White matter hypodensity suggests small vessel disease. No acute intracranial hemorrhage is elbert ntified. The bilateral M1, M2, A1 and A2 segments are patent. No vessel occlusion is identified. Ther e is minimal plaque within the cavernous carotids without stenosis. The posterior circulation is also intact. There is persistence of the right posterior cerebral artery. IMPRESSION: No vessel occlusion. No intracranial aneurysm. ACT 112: Negative or not required by law. Electronically signed by: Crow Deal M.D. 10/10/2023 3:43 PM
[2023-10-10 15:50] LABS: Troponin I High Sensitivity 3.9 pg/ml (0-14)
[2023-10-10 15:56] LABS: Partial Thromboplastin Ratio 0.9; Partial Thromboplastin Time 24 Seconds (21-31); Prothrombin Time 10.6 Seconds (9.0-12.0)
--- NOTE | 2023-10-10 16:33 | History & Physical Report ---
Date of Service October 10, 2023 Assessment & Plan (1) Ambulatory dysfunction: Plan: Altered mental status/encephalopathy; weakness EKG normal sinus rhythm, QTc 460, no acute ischemic changes/territorial ST changes/T wave inversions - Last known well 10pm 10/09/23. Presented afternoon 10/10/23 with increased confusion, oriented to self only. Patient typically independently ambulatory with a cane, too weak to ambulate 10/09 and 10/10 Physical exam somewhat limited by engagement however appears to have asymmetric weakness in left lower extremity. Endorses past urinary symptoms with no recent dysuria, endorses incontinence which she reports is new - No fever/chills/sweats or infectious symptoms Patient was seen 02/2023 for TIA. Was noted to have cognitive decline, memory loss, urge incontinence, and right arm numbness/tingling at that time. At time of that hospitalization strength was symmetrical in upper and lower extremities without deficit. MRI with stable age-related findings without acute infarct. EEG negative for seizure on follow-up. Had a similar readmission 08/13/2023 for strokelike symptoms. Stroke was ruled out at that time. Patient was found with incoherent speech, mumbling, and inability to stand. Extensive workup was unremarkable, HIDA scan was checked due to gallbladder distention but was found to be normal. Patient does not have any abdominal pain or symptoms of cholecystitis on admission. She had been mildly hyponatremic at that time, she is currently near euvolemic to slightly volume contracted without OMAYRA and with normal sodium on this admission ? Acute strokelike symptoms with focal left hip flexion, ankle dorsiflex ion/plantarflexion asymmetry 3/5 on exam versus global decline and deconditioning. MRI is pending. Patient received full dose aspirin, transitioned to Plavix given new symptoms while on aspirin. Elevated risk, consider 3 weeks DAPT if MRI negative. Statin continued. Follows commands intermittently today, does have robust right lower extremity strength on exam and does not hold left leg up to antigravity although limited engagement/easy distractibility on exam Case management consulted as if above is negative and no acute stroke pathology or metabolic encephalopathy is found, will need additional assistance/services for progressive decline with dementia and multiple falls/weakness High sensitive troponin is negative, Pro-Ricardo is negative - w/ hx Urinary incontinence. Oxybutinin continued. Denies new urinary symptoms. No leukocytosis. Procalcitonin negative. No antibiotics indicated at this time. (2) Acute confusion: Plan: Acute confusion with history of chronic dementia, memory loss Follows with neurology as outpatient. Namenda dose increased as outpatient and she has been more confused, this was discontinued and she clinically improved. Discussed rivastigmine patch however this was deferred as outpatient Stroke eval as above History of Present Illness Primary Care Provider: Abigail Humphrey MD Marlene is a 78-year-old female who was in her normal state of health 10 PM 10/09/2023 and he was found by her on the floor sleep around 6 AM this morning. Patient was assisted back to bed at that time, but was very somnolent and at noon had difficulty getting out of bed and was more confused than normal and presented to the ER for further evaluation. She has a past history of TIA, hyponatremia, GERD, anxiety and is on aspirin/atorvastatin ADMINISTRATIVE DIRECTOR. On arrival she has no leukocytosis, BMP is with normal renal function, normal sodium, normal, high-sensitivity troponin is normal, procalcitonin is normal Marlene seen at the bedside. Limited history due to dementia. By report she was found on the floor this morning around 6 AM, increased confusion and weakness around noon today. In the ER she is found to have asymmetric/new left lower extremity weakness which is not her baseline has been recommended for stroke eval. She does not have any pain on L logroll or passive hip flexion/external rotation. Call to patient's --> to voicemail, pending additional collateral at time of admission. Patient denies fever, chills, sweats, dysuria, abdominal pain, hip pain at time of admission Medical History: Reviewed Medications: Reviewed Surgical History: Reviewed Family history: Reviewed Allergies: Reviewed Social History: Reviewed Code Status: Full per prior EMR review, pending discussion with surrogate. Allergies Allergy/AdvReac Type Severity Reaction Status Date / Time Sulfa (Sulfonamide Allergy Intermediate HIVES Verified 10/10/23 15:27 Antibiotics) Penicillins Allergy Mild RASH Verified 10/10/23 15:27 doxycycline AdvReac Nausea and Verified 10/10/23 15:27 vomiting Home Medications Medication Instructions Recorded Confirmed Type calcium carbonate 600 mg calcium 600 mg PO QAM 11/24/19 10/10/23 History (1,500 mg) tablet (Calcium) multivitamin with minerals 1 tab PO QAM 01/17/21 10/10/23 History (Hair,Skin and Nails tablet) aspirin 81 mg tablet,delayed 81 mg PO QAM #30 tabs 02/26/23 10/10/23 Rx release trospium 20 mg tablet 20 mg PO BID #60 tabs 08/02/23 10/10/23 Rx escitalopram oxalate 10 mg tablet 10 mg PO HS #30 tabs 08/22/23 10/10/23 Rx cholecalciferol (vitamin D3) 125 125 mcg PO DAILY #30 caps 08/28/23 10/10/23 Rx mcg (5,000 unit) capsule cholecalciferol (vitamin D3) 25 5,000 unit PO QAM 08/29/23 10/10/23 History mcg (1,000 unit) capsule omeprazole 40 mg capsule,delayed 40 mg PO DAILY #90 caps 08/29/23 10/10/23 Rx release mirtazapine 7.5 mg tablet 7.5 mg PO DAILY #30 tabs 09/04/23 10/10/23 Rx atorvastatin 40 mg tablet 40 mg PO QAM #90 tabs 10/05/23 10/10/23 Rx ondansetron HCl 4 mg tablet 4 mg PO Q8 PRN Nausea And Vomiting 10/10/23 10/10/23 History Past Med/Surg History Medical History Low sodium levels Dizziness Left arm numbness Arm paresthesia, right Weakness Nausea reason for upcoming procedure History of osteonecrosis DDD (degenerative disc disease) HTN (hypertension) SOBOE (shortness of breath on exertion) Cognitive and behavioral changes memory issues Anxiety Adjustment disorder with depressed mood Cyst of kidney, acquired GERD without esophagitis Osteoporosis Scoliosis mild Signs and symptoms involving cognition Surgical History Hx of colonoscopy History of cataract surgery BL History of tooth extraction History of esophagogastroduodenoscopy (EGD) S/P tubal ligation Family History Mother , age 83 Lymphoma Hypertension Grandmother (Paternal) Breast cancer Grandfather (Maternal) Colorectal cancer Father Dementia Stroke Brother Lung cancer Stroke Other No family history of adverse response to anesthesia Denies family history of Ovarian cancer Prostate cancer Myocardial infarction Social History Smoking Status: Never smoker Second Hand Exposure: Yes; Do You Dip or Chew Tobacco: No; Hx Alcohol Use: No Hx Substance Use: No Preferred Language: Monegasque Communication Ability: Effective Visual Impairment: No Limitations Hearing Ability: Normal Pest Control Operator Required: No Beliefs That Will Affect Care: None marital status: Current Living Situation: Spouse Feels Safe at Home: Yes Seatbelt Use: always Assistive Devices: Denture - Lower and Glasses Physical Exam Physical Exam: General: Oriented to name only. Easily distracted, follows some one-step HEENT: Atraumatic, normocephalic. Vision grossly intact, hearing grossly intact Pulm: CTAB A&P. -wheezes, -rales, -rhonchi. Symmetrical chest rise. No increased work of breathing. No respiratory distress. Cardiac: RRR, -mrg. Radial pulses intact and symmetrical. Abdominal: Nontender, nondistended, soft. BS present. Extremities: Left lower extremity 3/5 to hip flexion and ankle dorsiflexion/plantarflexion. Chalk Tester strength, elbow flexion, right hip flexion, right ankle dorsiflexion/plantarflexion 5/5. Somewhat limited by engagement, sensation soft touch grossly intact in hands and feet Results & Data Results & Data Vital Signs (Past 12 Hours) Vital Signs Temp Pulse Pulse Resp BP BP Pulse Ox 10/10/23 16:15 85 22 146/80 H 94 10/10/23 15:15 98 H 24 130/69 95 10/10/23 14:58 78 10/10/23 14:58 77 16 132/76 99 10/10/23 14:58 10/10/23 14:40 36.5 C 73 20 115/68 96 O2 Del Method 10/10/23 16:15 Room Air 10/10/23 15:15 Room Air 10/10/23 14:58 10/10/23 14:58 Room Air 10/10/23 14:58 Room Air 10/10/23 14:40 Room Air PG Care Time/CCT Total # of Minutes Spent Total Time Spent with Patient: Total time spent is greater than 50% in coordination of care (as documented) at patient's floor/unit and/or counseling patient: Coding Level of Care Code 44922 INT INP/OBS CARE 75MIN Diagnoses Ambulatory dysfunction R26.2 Acute confusion R41.0
[2023-10-10 16:48] LABS: Appearance Urine Clear (Clear); Bilirubin Urine Negative (Negative); Blood Urine Negative (Negative); Color Urine Yellow; Glucose Urine UA Negative (Negative); Ketones Urine Negative (Negative); Leukocyte Esterase Urine Negative (Negative); Nitrite Urine Negative (Negative); Protein Urine Negative (Negative); Specific Gravity Urine 1.041 (1.000-1.030); Urobilinogen Urine Negative (Negative); pH Urine 6.5 (4.5-7.5)
[2023-10-10] MEDS ORDERED: ASPIRIN 81 MG CHEW PO STA (17:02)
[2023-10-10 17:21] LABS: Amphetamines+Metham, Urine Neg (Neg); Barbiturates, Urine Neg (Neg); Benzodiazepine, Urine Neg (Neg); Cocaine, Urine Neg (Neg); MDMA (Ecstacy), Urine Neg (Neg); Marijuana, Urine Neg (Neg); Methadone, Urine Neg (Neg); Opiate, Urine Neg (Neg); Phencyclidine, Urine Neg (Neg)
[2023-10-10] MEDS ORDERED: ACETAMINOPHEN 325 MG TAB PO PRN (17:43)
[2023-10-10] MEDS: ESCITALOPRAM OXALATE 10 MG TAB PO SCH (20:39)
[2023-10-11 06:04] LABS: Basophils # (auto) 0.04 K/uL (0.00-0.20); Basophils % (auto) 0.6 %; Eosinophils # (auto) 0.19 K/uL (0.00-0.50); Hemoglobin 13.6 g/dl (12.0-16.0); Immature Granulocytes # (auto) 0.02 K/uL (0.01-0.20); Immature Granulocytes % (auto) 0.3 %; Lymphocytes # (auto) 1.78 K/uL (1.20-3.40); Lymphocytes % (auto) 28.4 %; Mean Corpuscular Hemoglobin 30.8 pg (25.0-34.0); Mean Corpuscular Hgb Conc 32.4 g/dL (32.0-36.0); Mean Corpuscular Volume 95.2 fL (80.0-100.0); Mean Platelet Volume 10.7 fL (9.4-12.4); Monocytes # (auto) 0.51 K/uL (0.11-0.59); Monocytes % (auto) 8.1 %; Neutrophils # (auto) 3.73 K/uL (1.40-6.50); Neutrophils % (auto) 59.6 %; Platelet Count 196 K/uL (130-400); RDW Standard Deviation 42.2 fL (36.4-46.3); Red Blood Count 4.41 M/uL (4.20-5.40); White Blood Count 6.27 K/ul (4.8-10.8)
[2023-10-11 06:19] LABS: BUN Creatinine Ratio 21.5 (10-20); Calcium 9.2 mg/dl (8.6-10.3); Creatinine Clr Calc Pharmacy 40.7 ml/min; Est GFR (African American) 68.7 ml/min; Est GFR (Non-African American) 59.3 ml/min; Potassium 3.9 mmol/L (3.5-5.1)
[2023-10-11] MEDS: ATORVASTATIN 40 MG TAB PO SCH (08:41)
[2023-10-11] MEDS: CLOPIDOGREL BISULFATE 75 MG TAB PO SCH (08:41)
[2023-10-11] MEDS: CHOLECALCIFEROL 5,000 UNITS 125 MCG TAB PO SCH (08:41)
[2023-10-11] MEDS: CEROVITE ADV FORMULA TAB PO SCH (08:41)
[2023-10-11] MEDS: ENOXAPARIN INJ 40 MG/0.4 ML SYR SQ SCH (08:41)
[2023-10-11] MEDS ORDERED: MIRTAZAPINE TAB 15 MG TAB PO SCH (09:00)
[2023-10-11] MEDS: PANTOprazole 40 MG TAB PO SCH (10:37)
--- NOTE | 2023-10-11 13:40 | Electrocardiogram Report ---
Test Reason : Blood Pressure : / mmHG Vent. Rate : 073 BPM Atrial Rate : 073 BPM P-R Int : 134 ms QRS Dur : 072 ms QT Int : 418 ms P-R-T Axes : -04 -15 011 degrees QTc Int : 460 ms Normal sinus rhythm Low voltage QRS Poor R wave progression, consider anterior FL vs. lead placement vs. LVH Abnormal ECG When compared with ECG of 13-AUG-2023 15:13, No significant change was found Confirmed by Dick Beltrán ([id number]) on 10/11/2023 1:40:35 PM Referred By: Confirmed By:Dick Beltrán
--- NOTE | 2023-10-11 14:16 | Magnetic Resonance Report ---
MR brain wo con HISTORY: 78 years-old Female LLE acute weakness, CVA eval Acute stroke-like symptoms. COMPARISON: Head CT October 10, 2023, brain MRI 08/14/2023. TECHNIQUE: Multiplanar and multisequence MRI of the brain was obtained without the use of IV contrast . FINDINGS: No restricted diffusion. Midline structures appear unremarkable. Partially empty sella. Degenerative changes of the imaged cervical spine. Motion degraded exam. No acute intracranial hemorrhage, midline shift, abnormal extra-axial collection, hydrocephalus or intra-axial mass. Involutional changes with extensive and confluent T2/FLAIR hyperintense foci throughout the white matter. The coronal FLAIR im ages, however, are nearly nondiagnostic. Cerebral venous sinuses and major arterial flow voids appear patent as visualized. The skull, orbits and soft tissues are unremarkable. Prior bilateral lens repair. Mastoid air cells and paranasal sinus es are clear. IMPRESSION: 1. Motion degraded exam. 2. No acute intracranial abnormality, specifically no evidence of acute or subacute infarct. 3. Involutional changes with extensive T2/FLAIR hypertense foci throughout the white matter suggestiv e of advanced chronic microvascular ischemic disease. ACT 112: Negative or not required by law. The above report was generated using voice recognition software. It may contain grammatical, syntax o r spelling errors. Dictated: 10/11/2023 1:11 PM Transcribed: 10/11/2023 1:18 PM Sam [id number] [email or web address] Electronically signed by: Rigo Honeycutt M.D. 10/11/2023 2:15 PM
--- NOTE | 2023-10-11 14:18 | Hospitalist Progress Note ---
Date of Service October 11, 2023 Assessment & Plan (1) Seizure-like activity: Plan: Could be having seizure activity at home given witnessed episodes by . Also with myoclonic jerks bilaterally all 4 extremities Will conscious Could be side effect of Remeron which can also induce seizures. She has a history of fairly significant dementia and severe microvascular ischemic disease on brain MRI which would put her at risk for seizures MRI brain negative for stroke Consult neurology-discussed care over the phone-plan for EEG, discontinue Remeron If has witnessed seizure here, give Keppra 1000 mg followed by 500 mg twice daily Add seizure precautions Check TSH, Lyme disease, B12, folate Also noted that vitamin B1 level was quite low during last admission-add thiamine 500 Mg IV 3 times daily in case of Wernicke's encephalopathy (2) Ambulatory dysfunction: Plan: Checking labs as above, could be related to side effect of Remeron and seizures as above Also with thiamine deficiency-treat with IV thiamine high-dose Otherwise all labs are normal, no signs of infection MRI brain negative for acute PT/OT recommend rehab (3) Acute confusion: Plan: As noted above (4) Thiamine deficiency: Plan: Start thiamine 500 Mg IV every 8 hours for previous low vitamin B 1 level of 10 (5) GERD without esophagitis: Plan: Continue Protonix (6) History of TIA (transient ischemic attack): Plan: Continue Plavix and atorvastatin No stroke care (7) Dementia: Plan: Moderate to severe, previously on donepezil and Namenda which have been discontinued Follows with neurology Supportive care (8) Overactive bladder: Plan: Not currently on medication (9) Anxiety: Plan: Continue Lexapro-dose recently decreased to 10 mg during last hospitalization Discontinue mirtazapine as noted above Plan DVT prophylaxis-Lovenox Disposition-continued stay on med/tele Admission and Anticipated Discharge Date Admission Date: October 10, 2023 Subjective Patient drowsy but more awake than previous, moving all extremities. reports she has been having several episodes over the last week and a half or so of whole body shaking with eyes rolling back and head, right side shaking more than left followed by a period of a few minutes of disorientation. She is also been having frequent myoclonic jerks in her legs and arms for the last week and a half. She started on Remeron about 3 weeks ago. reports her cognition has really declined especially since the last hospitalization in November, but an overall progressive decline in cognition for the last 8 months Of note, patient received her mirtazapine this morning as this is the way it was ordered on admission, but has been taking it at bedtime at night at home I discussed her care with neurology Telemetry with normal sinus rhythm with rates in the 60s to 70s Physical Exam Constitutional: WD/WN, vitals as above Eyes: PERRL, conjunctivae normal, anicteric sclerae ENMT: external ear and nose normal, oropharynx normal Respiratory: normal respiratory effort, lungs clear to auscultation Cardiovascular: RRR, no murmur, no edema Gastrointestinal (Abdomen): normal bowel sounds, soft, nontender, no hepatosplenomegaly Musculoskeletal: no cyanosis or clubbing, extremities motor strength 5/5 Skin: no rashes, warm and dry Neurologic: normal touch/pain/proprioception, CN's II-XI intact bilaterally, moves all extremities, awake (But does drift off to sleep easily) and + confused (A bit forgetful but this seems to be her baseline); no focal motor deficits Speech / Cognition: + abnormal cognition (Only oriented to person which is her baseline over the last 6 months); normal speech Results & Data Results & Data Vital Signs (Past 12 Hours) Vital Signs Temp Pulse Pulse Resp BP Pulse Ox O2 Del Method 10/11/23 11:43 36.5 C 71 16 94/55 L 97 Room Air 10/11/23 07:58 36.5 C 65 16 148/76 H 94 Room Air 10/11/23 07:00 64 10/11/23 03:40 36.8 C 67 16 135/71 97 Room Air Laboratory Results CBC, BMP, UA reviewed Diagnostic Findings MRI brain reviewed PG Care Time/CCT Total # of Minutes Spent Total Time Spent with Patient: Total time spent is greater than 50% in coordination of care (as documented) at patient's floor/unit and/or counseling patient: Coding Level of Care Code 44274 SUB INP/OBS CARE 3/50MIN Diagnoses Seizure-like activity R56.9 Ambulatory dysfunction R26.2 Acute confusion R41.0 Thiamine deficiency E51.9 GERD without esophagitis K21.9 History of TIA (transient ischemic attack) Z86.73 Dementia F03.90 Overactive bladder N32.81 Anxiety F41.9
[2023-10-11] MEDS: THIAMINE HCL 500 MG in SODIUM CHLORIDE 0.9% 50 ML IV SCH ×2 (15:15→21:49)
[2023-10-11 15:30] LABS: Lyme Ab IgM w/WB Rflx Negative (Negative)
[2023-10-11 15:32] LABS: Lyme Ab IgG w/WB Rflx Positive (Negative)
[2023-10-11 15:33] LABS: Folate (Folic Acid),Ser orPlas > 22.30 ng/ml (>5.38)
[2023-10-11 15:34] LABS: Vitamin B12 639 pg/ml (180-914)
[2023-10-11] MEDS: ESCITALOPRAM OXALATE 10 MG TAB PO SCH (21:28)
[2023-10-12 03:37] LABS: Basophils # (auto) 0.03 K/uL (0.00-0.20); Basophils % (auto) 0.2 %; Eosinophils # (auto) 0.01 K/uL (0.00-0.50); Eosinophils % (auto) 0.1 %; Hematocrit (blood only) 40.7 % (37.0-47.0); Hemoglobin 13.8 g/dl (12.0-16.0); Immature Granulocytes # (auto) 0.05 K/uL (0.01-0.20); Immature Granulocytes % (auto) 0.3 %; Lymphocytes # (auto) 1.05 K/uL (1.20-3.40); Mean Corpuscular Hemoglobin 31.2 pg (25.0-34.0); Mean Corpuscular Hgb Conc 33.9 g/dL (32.0-36.0); Mean Corpuscular Volume 92.1 fL (80.0-100.0); Mean Platelet Volume 10.6 fL (9.4-12.4); Monocytes # (auto) 0.48 K/uL (0.11-0.59); Monocytes % (auto) 3.2 %; Neutrophils # (auto) 13.38 K/uL (1.40-6.50); Neutrophils % (auto) 89.2 %; Platelet Count 205 K/uL (130-400); RDW Standard Deviation 40.9 fL (36.4-46.3); Red Blood Count 4.42 M/uL (4.20-5.40)
[2023-10-12 03:54] LABS: BUN Creatinine Ratio 23.5 (10-20); Creatinine Clr Calc Pharmacy 46.8 ml/min; Est GFR (African American) 81.2 ml/min; Est GFR (Non-African American) 70.1 ml/min; Potassium 3.8 mmol/L (3.5-5.1)
[2023-10-12] MEDS: THIAMINE HCL 500 MG in SODIUM CHLORIDE 0.9% 50 ML IV SCH ×2 (05:45→14:29)
--- NOTE | 2023-10-12 07:41 | Electroencephalogram ---
EEG Procedure Note Date of Service October 11, 2023 Start / End Times Start Time: 617 End Time: [address] Conteh History 78-year-old with history of acute confusion and seizure-like activity Home Medication List Medication Instructions Recorded Confirmed Type calcium carbonate 600 mg calcium 600 mg PO QAM 11/24/19 10/10/23 History (1,500 mg) tablet (Calcium) multivitamin with minerals 1 tab PO QAM 01/17/21 10/10/23 History (Hair,Skin and Nails tablet) aspirin 81 mg tablet,delayed 81 mg PO QAM #30 tabs 02/26/23 10/10/23 Rx release trospium 20 mg tablet 20 mg PO BID #60 tabs 08/02/23 10/10/23 Rx escitalopram oxalate 10 mg tablet 10 mg PO HS #30 tabs 08/22/23 10/10/23 Rx cholecalciferol (vitamin D3) 125 125 mcg PO DAILY #30 caps 08/28/23 10/10/23 Rx mcg (5,000 unit) capsule cholecalciferol (vitamin D3) 25 5,000 unit PO QAM 08/29/23 10/10/23 History mcg (1,000 unit) capsule omeprazole 40 mg capsule,delayed 40 mg PO DAILY #90 caps 08/29/23 10/10/23 Rx release mirtazapine 7.5 mg tablet 7.5 mg PO DAILY #30 tabs 09/04/23 10/10/23 Rx atorvastatin 40 mg tablet 40 mg PO QAM #90 tabs 10/05/23 10/10/23 Rx ondansetron HCl 4 mg tablet 4 mg PO Q8 PRN Nausea And Vomiting 10/10/23 10/10/23 History Inpatient Medication List Atorvastatin Calcium (Atorvastatin 40 Mg Tab) 40 mg PO [facility] Stop: 11/10/23 08:59 Last Admin: 10/11/23 08:41 Dose: 40 mg Documented By: ONUR Clopidogrel Bisulfate (Clopidogrel Bisulfate 75 Mg Tab) [facility] [place] [facility] [place] Stop: 11/10/23 08:59 Last Admin: 10/11/23 08:41 Dose: 75 mg Documented By: ONUR Enoxaparin Sodium (Enoxaparin Inj 40 Mg/0.4 Ml Syr) 40 mg SQ Q24H [facility] Stop: 11/10/23 08:59 Last Admin: 10/11/23 08:41 Dose: 40 mg Documented By: ONUR Escitalopram Oxalate (Escitalopram Oxalate 10 Mg Tab) 10 mg PO HS [facility] Stop: 11/09/23 20:59 Last Admin: 10/10/23 20:39 Dose: 10 mg Documented By: KVNG Mirtazapine (Mirtazapine Tab 15 Mg Tab) 7.5 mg PO DAILY [facility] Stop: 11/10/23 08:59 Last Admin: 10/11/23 08:41 Dose: 7.5 mg Documented By: ONUR Multivitamins/Minerals (Cerovite Adv Formula Tab) 1 tab PO [facility] Stop: 11/10/23 08:59 Last Admin: 10/11/23 08:41 Dose: 1 tab Documented By: ONUR Pantoprazole Sodium (Pantoprazole 40 Mg Tab) 40 mg PO DAILY [facility] Stop: 11/10/23 08:59 Last Admin: 10/11/23 10:37 Dose: 40 mg Documented By: ONUR Vitamin D (Cholecalciferol 5,000 Units 125 Mcg Tab) 5,000 units PO [facility] Stop: 11/10/23 08:59 Last Admin: 10/11/23 08:41 Dose: 5,000 units Documented By: ONUR Discontinued Medications Aspirin (Aspirin 81 Mg Chew) 243 mg PO NOW STA Stop: 10/10/23 17:03 Last Admin: 10/10/23 17:25 Dose: 243 mg Documented By: BREA Ioversol (Optiray 320 125ml) 116 ml IV ONCE ONE Stop: 10/10/23 15:05 Last Admin: 10/10/23 15:04 Dose: 116 ml Documented By: KATJA Description This is a 21 electrode EEG with a single channel dedicated to limited EKG. The electrodes were placed in accordance with the International 10-20 system. Interpretation The predominant background activity consists of a mixture of an irregular 8 Hz activity, of up to 40 V, seen very intermittently, in brief spurts lasting a second or so, in the posterior head regions in the first half of this recording. Admixed with this activity was an irregular 5-6 hz activity, of up to 60 mV in amplitude,seen intermittently in all head regions. The patient was moving throughout the recording including her head and arms. This created a significant muscle tension and movement artifact which contaminated the recording from time to time but not to any significant degree overall. She would have her eyes open intermittently which affected the recording as well. Photic stimulation was performed and elicited no change in the background activity and no abnormal responses were seen. Hyperventilation was not performed. Throughout the recording, no focal abnormalities or potentially epileptogenic discharges were seen. The patient did not enter into drowsiness or sleep throughout the recording In summary, this EEG showed mild, persistent generalized slowing during the wakeful state, without focal abnormalities or potentially epileptogenic discharges. Clinical Correlation The absence of potentially epileptogenic activity does not exclude a seizure disorder, since interictally, EEGs can be normal. The mild generalized slowing likely correlates with a mild encephalopathy which could be due to a wide variety of causes. Clinical correlation is required. [facility] EEG Procedure Codes Indication for Procedure (1) Seizure-like activity: Neurology Neurology: 16953 EEG include record awake & drowsy
--- NOTE | 2023-10-12 08:28 | Neurology Consultation ---
Date of Consultation October 12, 2023 Assessment & Plan (1) Acute encephalopathy: (2) Myoclonic jerking: (3) Dementia: (4) Ambulatory dysfunction: (5) Fatigue: (6) History of TIA (transient ischemic attack): Plan This patient has an underlying senile dementia of the Alzheimer's type. It seems to be progressed beyond "mild cognitive impairment" over the last year. Currently she has a probable acute encephalopathy superimposed and has myoclonic jerking of all limbs intermittently of a significant nature. Etiology of this is not apparent. There are been no new medications and she does not have an obvious metabolic issue. She does have a positive Lyme titer (Western blot pending) and a recently elevated white count with increased neutrophils. She is afebrile. I cannot exclude an infection driving this. Mirtazapine can create confusion and twitching and this was discontinued on admission. Certainly, patients with Alzheimer's disease can have myoclonic jerking and even seizures. Her EEG this morning did not show any abnormalities despite the myoclonus. Therefore, I do not believe she has a seizure disorder. Thiamine deficiency can certainly make her more confused and probably lead to myoclonus as well. There is no evidence of meningeal issues and she has been put on ceftriaxone. There is no evidence for acute stroke by MRI. Her neurologic examination otherwise is nonfocal. Recommendations: 1. Although there is no evidence of acute or chronic cerebrovascular disease she does have a history of TIAs and switching her from 81 mg aspirin to 75 mg clopidogrel is reasonable. 2. Increase activity as able and consider physical, occupational, and speech therapy consults. 3. Continue ceftriaxone for now and we are awaiting Western blot. An LP is not necessary in my opinion. 4. Could consider low-dose once daily Depakote ER (24-hour release) 500 mg to see if this decreases myoclonus. This is one of my drugs of choice for myoclonic jerking. 5. Keep off mirtazapine 6. Replace thiamine as you are doing. Overall, I spent a total of 75 minutes with this case including review of records, review of MRI films, direct evaluation of the patient at bedside, report generation, and discussion of the case with the patient and RN at bed side, and Dr. Conteh including differential diagnosis and treatment options. History of Present Illness Reason for Consultation: Patient is a 78-year-old, who I was asked to see at the request of Dr. Conteh, for neurologic evaluation regarding seizure-like activity and dementia. Requesting Physician: Dr. Conteh Attending Physician: Charo Conteh MD History of Present Illness The patient has had a several year history of memory problems with neuropsych testing done in 2020, showing mild cognitive impairment with depression and anxiety. She was having mostly short-term memory up until 2022. She is followed by Dr. Heath as an outpatient. In February 2023 she had some dysesthesias in the right upper extremity. At the hospital CT angiography of the head and neck were unremarkable. MRI of the brain was unremarkable as well as an echocardiogram. She was given 81 mg aspirin daily. In the summer and fall 2022 she was tried on donepezil and then memantine. She ended up being more confused and had side effects to these medicines. She has been off all dementia medications recently. Her mood is controlled with escitalopram 10 mg daily. In August of this year she was brought to the emergency room for acute confusion. She was found by her on the floor and had trouble speaking and standing. When she got to the emergency room her blood pressure was 180/100. CT scan of the head was unremarkable. MRI of the brain showed no acute changes. EEG was unremarkable. Her exam was otherwise unremarkable and her blood pressure was treated. She got back to baseline at discharge. She was not sleeping well and was given mirtazapine. Twitching of the limbs was noted on and off about a week after she started the medication (September 04) She was in her usual condition and went to bed at 10 PM on October 09 being at baseline. found her at 6 AM on the floor next to the bed and got her back into bed. She woke up at noon on October 10 more confused and having trouble ambulating. She arrived to the emergency room October 10 at 1440 with a temperature 36.5, pulse 73 and regular, respiratory rate 20, blood pressure 115/68, and O2 saturation 96%. She was confused on exam but had no focal findings. CBC and CHEM profile were unremarkable although an alk phos was elevated at 157. Chest x-ray was unremarkable. CT scan of the head showed no acute findings. CT angiography of the head and neck showed no significant stenoses or anomalies. MRI of the brain showed no new stroke and showed the moderate generalized atrophy and small vessel ischemic disease of unknown nature, as before. I reviewed these films. Apparently yesterday, the patient had some seizure-like activity. I cannot find that she had a specific event but has had twitching and myoclonic jerking of the limbs without loss or alteration of consciousness, but there is history from the that she has had episodes relatively recently where her eyes rolled up and she spaced out for a minute. EEG done earlier this morning showed mild generalized slowing but no focal abnormalities or potentially epileptogenic discharges. She was moving and had the twitches throughout the recording This morning she is not complaining of any headache or neck pain. She has no dizziness or vision problems. She has no weakness or numbness. She does feel little bit cold lying there in bed without covers on and is fatigued. Laboratory studies reveal a positive Lyme antibody titer and Western blot is pending. White count this morning is elevated at 15 with increased neutrophils. Chemistry profile was unremarkable except for glucose of 139. TSH, B12, and folate were normal. Thiamine level was low normal at 10 Allergies Allergy/AdvReac Type Severity Reaction Status Date / Time Sulfa (Sulfonamide Allergy Intermediate HIVES Verified 10/10/23 15:27 Antibiotics) Penicillins Allergy Mild RASH Verified 10/10/23 15:27 doxycycline AdvReac Nausea and Verified 10/10/23 15:27 vomiting Home Medications Medication Instructions Recorded Confirmed Type calcium carbonate 600 mg calcium 600 mg PO QAM 11/24/19 10/10/23 History (1,500 mg) tablet (Calcium) multivitamin with minerals 1 tab PO QAM 01/17/21 10/10/23 History (Hair,Skin and Nails tablet) aspirin 81 mg tablet,delayed 81 mg PO QAM #30 tabs 02/26/23 10/10/23 Rx release trospium 20 mg tablet 20 mg PO BID #60 tabs 08/02/23 10/10/23 Rx escitalopram oxalate 10 mg tablet 10 mg PO HS #30 tabs 08/22/23 10/10/23 Rx cholecalciferol (vitamin D3) 125 125 mcg PO DAILY #30 caps 08/28/23 10/10/23 Rx mcg (5,000 unit) capsule cholecalciferol (vitamin D3) 25 5,000 unit PO QAM 08/29/23 10/10/23 History mcg (1,000 unit) capsule omeprazole 40 mg capsule,delayed 40 mg PO DAILY #90 caps 08/29/23 10/10/23 Rx release mirtazapine 7.5 mg tablet 7.5 mg PO DAILY #30 tabs 09/04/23 10/10/23 Rx atorvastatin 40 mg tablet 40 mg PO QAM #90 tabs 10/05/23 10/10/23 Rx ondansetron HCl 4 mg tablet 4 mg PO Q8 PRN Nausea And Vomiting 10/10/23 10/10/23 History Patient History Medical History History of TIA (transient ischemic attack) Thiamine deficiency Low sodium levels Dizziness Left arm numbness Arm paresthesia, right Weakness Nausea reason for upcoming procedure History of osteonecrosis DDD (degenerative disc disease) HTN (hypertension) SOBOE (shortness of breath on exertion) Cognitive and behavioral changes memory issues Anxiety Adjustment disorder with depressed mood Cyst of kidney, acquired GERD without esophagitis Osteoporosis Scoliosis mild Signs and symptoms involving cognition Surgical History Hx of colonoscopy History of cataract surgery BL History of tooth extraction History of esophagogastroduodenoscopy (EGD) S/P tubal ligation Family History Mother , age 83 Lymphoma Hypertension Grandmother (Paternal) Breast cancer Grandfather (Maternal) Colorectal cancer Father Dementia Stroke Brother Lung cancer Stroke Other No family history of adverse response to anesthesia Denies family history of Ovarian cancer Prostate cancer Myocardial infarction Social History Smoking Status: Unknown if ever smoked Second Hand Exposure: Yes; Do You Dip or Chew Tobacco: No; Preferred Language: [place]an Communication Ability: Effective Visual Impairment: No Limitations Hearing Ability: Normal Vocational Rehabilitation Administrator Required: No Beliefs That Will Affect Care: None marital status: Current Living Situation: Spouse Feels Safe at Home: Yes Seatbelt Use: always Assistive Devices: Cane, Walker and Wheelchair Assistive Devices Comment: USES CANE AT BASELINE Review of Systems Constitutional: + fatigue; no fever and no weakness Eyes: no diplopia, no eye pain and no worsening vision Ear, Nose, Mouth, Throat: no ear pain, no tinnitus, no hearing loss, no dizziness, no snoring, no hoarseness and no dysphagia Respiratory: no cough and no dyspnea Cardiovascular: no chest pain, no palpitations and no lightheadedness Gastrointestinal: no abdominal pain, no nausea and no vomiting Genitourinary: no dysuria, no urinary frequency and no urinary incontinence Musculoskeletal: no back pain, no neck pain, no radicular pain, no joint pain and no myalgia Integumentary: no rash and no lesions Neurologic: + abnormal movements, + confusion and + memory loss; no gait abnormality, no localized weakness, no generalized weakness, no tingling, no numbness, no tremor(s), no headache(s) and no abnormal speech Psychiatric: no depression, no irritability, no anxiety, no difficulty concentrating, no confusion and no hallucinations Endocrine: no fatigue and no flushing Hematologic / Lymphatic: no easy bleeding and no easy bruising Allergy / Immunological: no urticaria and no problem reported Exam (Neuro) Physical Exam: The patient is right-handed. The patient is awake, alert, and attentive. Speech is normal without any aphasia or dysarthriashe can read test words and identify objects. Her mood is pleasant and affect is appropriate. She is quite confused. She knew her name but did not remember how to spell Marlene correctly (thought she might have an E on the end of it). She did not have any orientation as to where she is now. When I told her she was in the hospital she had no idea nor why she was there. She had no orientation to time. Long and short-term memory is poor. Pupils are 3 mm bilaterally and reactive to light. Extraocular eye muscles are intact without nystagmus. Visual acuity and visual nathan seem normal grossly to confrontation. There are no deficits to sensation in the face in all 3 distributions of the fifth cranial nerve bilaterally. Corneal reflexes are positive bilaterally. Facial strength and symmetry was normal bilaterally. Hearing seems intact grossly to voice and finger rub bilaterally. Palate moves well without asymmetry. There is normal sternocleidomastoid and trapezius strength bilaterally. Tongue is midline with good strength bilaterally. Neck has a full range of motion without discomfort. There are no cervical bruits bilaterally. There are no cranial or ocular bruits. Heart is without murmur. There is a regular rhythm and rate. Cervical, thoracic, and lumbar spine are nontender to palpation. Gait was not tested and stance sitting up in bed is reasonable. With outstretched arms there is no drift. There are no resting, postural, or action tremors. There is no ataxia with finger to nose testing. However, there is frequent twitching of the limbs consistent with myoclonic jerks. They are at rest and with action at times. Motor strength is 5/5 diffusely in the arms bilaterally including deltoids, biceps, triceps, brachioradialis, wrist flexors and extensors, nutrition representative, and intrinsic hand muscles. Motor strength is 5/5 diffusely in the legs bilaterally including hip flexors, quadriceps, hamstrings, gastrocnemius, tibialis anterior, tibialis posterior, and Peroneii muscles bilaterally. Toe extensors are normal and there is good bulk in the extensor digitorum brevis muscles bilaterally. The limbs have good tone without rigidity or spasticity. There is no atrophy noted in the muscles. Muscle bulk is normal, there is no tenderness to palpation, no myotonia to percussion, and no fasciculations seen. Sensory examination is intact to touch and pin throughout all 4 limbs diffusely. Reflexes are 1/4 in the biceps, triceps, brachioradialis, quadriceps, and Achilles tendons bilaterally. Toes are downgoing with plantar stimulation bilaterally. Peripheral pulses are present and of normal quality distally in all 4 limbs. There is no peripheral edema noted in the limbs. Results & Data Vital Signs (Past 12 Hours) Vital Signs Temp Pulse Pulse Pulse Resp BP Pulse Ox 10/12/23 07:36 36.7 C 77 18 156/75 H 98 10/12/23 03:22 36.5 C 62 16 130/74 93 10/11/23 23:25 36.6 C 66 18 131/79 95 10/11/23 23:20 76 O2 Del Method 10/12/23 07:36 Room Air 10/12/23 03:22 Room Air 10/11/23 23:25 Room Air 10/11/23 23:20 PG Care Time/CCT Total # of Minutes Spent Total Time Spent with Patient: Total time spent is greater than 50% in coordination of care (as documented) at patient's floor/unit and/or counseling patient: Coding Level of Care Code 07126 INT INP/OBS CARE 3/75MIN Diagnoses Acute encephalopathy G93.40 Myoclonic jerking G25.3 Dementia F03.90 Ambulatory dysfunction R26.2 Fatigue R53.83 History of TIA (transient ischemic attack) Z86.73 Time Spent (min) 75
[2023-10-12] MEDS: CEROVITE ADV FORMULA TAB PO SCH (08:55)
[2023-10-12] MEDS: ENOXAPARIN INJ 40 MG/0.4 ML SYR SQ SCH (08:55)
[2023-10-12] MEDS: PANTOprazole 40 MG TAB PO SCH (08:55)
[2023-10-12] MEDS: CHOLECALCIFEROL 5,000 UNITS 125 MCG TAB PO SCH (08:55)
[2023-10-12] MEDS: CLOPIDOGREL BISULFATE 75 MG TAB PO SCH (08:55)
[2023-10-12] MEDS: ATORVASTATIN 40 MG TAB PO SCH (08:55)
[2023-10-12] MEDS: cefTRIAXone SODIUM 2,000 MG in DEXTROSE 5 % MINI-B 50 ML IV SCH (09:48)
[2023-10-12] MEDS ORDERED: bisacodyL 10 MG SUPP PR PRN (10:30)
[2023-10-12] MEDS ORDERED: ONDANSETRON INJ 2 MG/ML 2 ML VIAL IV PRN (10:30)
[2023-10-12] MEDS: DIVALPROEX EXTENDED RELEASE 500 MG TAB PO SCH (10:47)
[2023-10-12] MEDS: DOCUSATE SODIUM/SENNA 50/8.6MG TAB PO SCH (10:48)
--- NOTE | 2023-10-12 19:00 | Hospitalist Progress Note ---
Date of Service October 12, 2023 Assessment & Plan (1) Seizure-like activity: Plan: Could be having seizure activity at home given witnessed episodes by . Also with myoclonic jerks bilaterally all 4 extremities while conscious Could be side effect of Remeron which can also induce seizures. She has a history of fairly significant dementia and severe microvascular ischemic disease on brain MRI which would put her at risk for seizures MRI brain negative for stroke EEG negative for seizures but does not rule out seizures TSH, B12, folate normal. Thiamine low normal last admission at 10. Lyme titer positive Consult [id number] his seizures are less likely but myoclonic jerks could be from Remeron. Metabolic causes have essentially been ruled out. Lyme titer is positive-treat for Lyme, discontinue Remeron and start Depakote ER 500 Mg once daily for myoclonic jerks but also antiepileptic If has witnessed seizure here, give Keppra 1000 mg followed by 500 mg twice daily Continue seizure precautions Continue thiamine 500 Mg IV 3 times daily in case of Wernicke's encephalopathy- plan to complete 6 doses and convert to p.o. after that (2) Ambulatory dysfunction: Plan: could be related to side effect of Remeron and seizures as above Also with thiamine deficiency-treat with IV thiamine high-dose Treating Lyme MRI brain negative for acute PT/OT recommend rehab (3) Lyme disease: Plan: Lyme titer IgG positive, IgM negative Start ceftriaxone 2 g IV once daily and recommend continuing for 28 days for possible neuro Lyme given findings on brain MRI, possible seizure-like episodes and myoclonic jerks with alteration in mentation over the last 2 months Neurology does not think an LP is necessary Follow Western blot (4) Myoclonic jerking: Plan: As above, discontinue Remeron, start Depakote (5) Acute confusion: Plan: As noted above (6) Thiamine deficiency: Plan: thiamine 500 Mg IV every 8 hours for previous low vitamin B 1 level of 10 and convert to p.o. tomorrow (7) GERD without esophagitis: Plan: Continue Protonix (8) History of TIA (transient ischemic attack): Plan: Continue Plavix and atorvastatin (9) Dementia: Plan: Moderate to severe, has progressed over the last year, previously on donepezil and Namenda which have been discontinued Follows with neurology Supportive care (10) Overactive bladder: Plan: Not currently on medication and would not recommend this in the elderly (11) Anxiety: Plan: Continue Lexapro-dose recently decreased to 10 mg during last hospitalization Discontinue mirtazapine as noted above Plan DVT prophylaxis-Lovenox Disposition-continued stay on med/tele, called and left voicemail on 10/12 Admission and Anticipated Discharge Date Admission Date: October 10, 2023 Subjective Patient is only confused, more alert and awake today, still with some muscle twitching. Is disheveled with her gown completely off when I came in the room. Telemetry with normal sinus rhythm with rates in the 70s to 80s I discussed her care with neurology I attempted to call her to give an update but he did not answer-left a message Physical Exam Constitutional: WD/WN, vitals as above Respiratory: normal respiratory effort, lungs clear to auscultation Cardiovascular: RRR, no murmur, no edema Gastrointestinal (Abdomen): normal bowel sounds, soft, nontender, no hepatosplenomegaly Musculoskeletal: no cyanosis or clubbing, extremities motor strength 5/5 Skin: no rashes, warm and dry Neurologic: normal touch/pain/proprioception, CN's II-XI intact bilaterally, moves all extremities, awake and + confused (A bit forgetful but this seems to be her baseline); no focal motor deficits Speech / Cognition: + abnormal cognition (Only oriented to person which is her baseline over the last 6 months); normal speech Continues with some intermittent myoclonic jerks in all 4 extremities, improved from previous-less frequent Results & Data Results & Data Vital Signs (Past 12 Hours) Vital Signs Temp Pulse Pulse Resp BP Pulse Ox O2 Del Method 10/12/23 16:56 85 10/12/23 15:35 36.2 C L 82 18 126/69 97 Room Air 10/12/23 12:17 36.8 C 83 18 104/58 L 95 Room Air 10/12/23 09:15 80 10/12/23 07:36 36.7 C 77 18 156/75 H 98 Room Air Laboratory Results CBC, BMP, TSH, B12, folate, Lyme titer all reviewed-Lyme IgG positive, IgM negative PG Care Time/CCT Total # of Minutes Spent Total Time Spent with Patient: Total time spent is greater than 50% in coordination of care (as documented) at patient's floor/unit and/or counseling patient: Coding Level of Care Code 84646 SUB INP/OBS CARE 3/50MIN Diagnoses Seizure-like activity R56.9 Ambulatory dysfunction R26.2 Lyme disease A69.20 Myoclonic jerking G25.3 Acute confusion R41.0 Thiamine deficiency E51.9 GERD without esophagitis K21.9 History of TIA (transient ischemic attack) Z86.73 Dementia F03.90 Overactive bladder N32.81 Anxiety F41.9
[2023-10-12] MEDS: ESCITALOPRAM OXALATE 10 MG TAB PO SCH (20:40)
[2023-10-13] MEDS: THIAMINE HCL 500 MG in SODIUM CHLORIDE 0.9% 50 ML IV SCH ×2 (00:06→06:22)
[2023-10-13 07:52] LABS: Basophils # (auto) 0.06 K/uL (0.00-0.20); Basophils % (auto) 0.7 %; Eosinophils # (auto) 0.16 K/uL (0.00-0.50); Eosinophils % (auto) 1.9 %; Hematocrit (blood only) 38.5 % (37.0-47.0); Hemoglobin 12.7 g/dl (12.0-16.0); Immature Granulocytes # (auto) 0.04 K/uL (0.01-0.20); Immature Granulocytes % (auto) 0.5 %; Lymphocytes % (auto) 17.8 %; Mean Corpuscular Hemoglobin 31.2 pg (25.0-34.0); Mean Corpuscular Volume 94.6 fL (80.0-100.0); Mean Platelet Volume 10.7 fL (9.4-12.4); Monocytes % (auto) 7.1 %; Neutrophils # (auto) 6.09 K/uL (1.40-6.50); Platelet Count 164 K/uL (130-400); RDW Standard Deviation 42.1 fL (36.4-46.3); Red Blood Count 4.07 M/uL (4.20-5.40); White Blood Count 8.45 K/ul (4.8-10.8)
[2023-10-13] MEDS: DIVALPROEX EXTENDED RELEASE 500 MG TAB PO SCH (08:00)
[2023-10-13] MEDS: cefTRIAXone SODIUM 2,000 MG in DEXTROSE 5 % MINI-B 50 ML IV SCH (08:00)
[2023-10-13] MEDS: CLOPIDOGREL BISULFATE 75 MG TAB PO SCH (08:00)
[2023-10-13] MEDS: PANTOprazole 40 MG TAB PO SCH (08:00)
[2023-10-13] MEDS: ENOXAPARIN INJ 40 MG/0.4 ML SYR SQ SCH (08:01)
[2023-10-13] MEDS: ATORVASTATIN 40 MG TAB PO SCH (08:01)
[2023-10-13] MEDS: CEROVITE ADV FORMULA TAB PO SCH (08:01)
[2023-10-13] MEDS: CHOLECALCIFEROL 5,000 UNITS 125 MCG TAB PO SCH (08:01)
[2023-10-13] MEDS: DOCUSATE SODIUM/SENNA 50/8.6MG TAB PO SCH (08:01)
[2023-10-13 08:11] LABS: Calcium 8.4 mg/dl (8.6-10.3); Creatinine Clr Calc Pharmacy 50.8 ml/min; Est GFR (African American) 93.6 ml/min; Est GFR (Non-African American) 80.8 ml/min; Potassium 3.4 mmol/L (3.5-5.1)
[2023-10-13] MEDS ORDERED: POTASSIUM CHLORIDE CRTAB 20 MEQ TABCR PO STA (09:08)
--- NOTE | 2023-10-13 13:09 | Hospitalist Progress Note ---
Date of Service October 13, 2023 Assessment & Plan (1) Seizure-like activity: Plan: Could be having seizure activity at home given witnessed episodes by of patient closing eyes and stiffening throughout entire body with tonic movements with shaking bilaterally, followed by disorientation for a few minutes. Her myoclonic jerks bilaterally all 4 extremities while conscious have been going on for 1 to 2 weeks prior to admission Myoclonic jerks could be side effect of Remeron.Remeron can also induce seizures. She has a history of fairly significant dementia and severe microvascular ischemic disease on brain MRI which would put her at risk for seizures MRI brain negative for stroke EEG negative for seizures but does not rule out seizures TSH, B12, folate normal. Metabolic panel and CBC normal except did have an isolated leukocytosis on hospital day #2. Thiamine low normal last admission at 10. Lyme titer positive, Western blot pending Consult [id number] his seizures are less likely but myoclonic jerks could be from Remeron. Metabolic causes have essentially been ruled out. Lyme titer is positive-treat for Lyme, discontinue Remeron and start Depakote ER 500 Mg once daily for myoclonic jerks but also antiepileptic. Patient is significantly improved since starting Depakote If has witnessed seizure here, give Keppra 1000 mg followed by 500 mg twice daily Continue seizure precautions Received thiamine 500 Mg IV x 6 doses in case of Wernicke's encephalopathy- converted to thiamine 200 Mg p.o. twice daily-would continue for 1 month (2) Ambulatory dysfunction: Plan: could be related to side effect of Remeron and seizures as above Also with thiamine deficiency-treat with IV thiamine high-dose Treating Lyme MRI brain negative for acute PT/OT recommend rehab Much stronger on 10/13, await repeat PT evaluation but will still likely need rehab (3) Lyme disease: Plan: Lyme titer IgG positive, IgM negative Started ceftriaxone 2 g IV once daily on 10/12 and recommend continuing for 28 days for possible neuro Lyme given findings on brain MRI, possible seizure-like episodes and myoclonic jerks with alteration in mentation over the last 2 months Last day of treatment of ceftriaxone would be 11/08/2023 Follow CBC, CMP once weekly while on antibiotics Neurology does not think an LP is necessary Follow Western blot Will need an ultrasound-guided peripheral IV prior to discharge (4) Myoclonic jerking: Plan: As above, discontinued Remeron, started Depakote and has had significant improvement in both mentation and myoclonus (5) Acute confusion: Plan: As noted above, now significantly improved (6) Thiamine deficiency: Plan: thiamine 500 Mg IV every 8 hours for previous low vitamin B 1 level of 10 and converted to p.o. (7) GERD without esophagitis: Plan: Continue Protonix (8) History of TIA (transient ischemic attack): Plan: Continue Plavix and atorvastatin (9) Dementia: Plan: Moderate to severe, has progressed over the last year, previously on donepezil and Namenda which have been discontinued Follows with neurology Supportive care (10) Overactive bladder: Plan: Was on trospium-this has been discontinued and would not recommend this in the elderly due to anticholinergic effects (11) Anxiety: Plan: Continue Lexapro-dose recently decreased to 10 mg during last hospitalization Discontinued mirtazapine as noted above Plan DVT prophylaxis-Lovenox Disposition-continued stay on med/tele, much improved, medically stable for discharge. Discussed care at length with daughter on the phone and referrals will be made to rehabs Admission and Anticipated Discharge Date Admission Date: October 12, 2023 Subjective Patient feeling much better today she states. She feels that the tremors are less. She is much more conversational she is able to feed herself. Telemetry with normal sinus rhythm with rates in the 60s to 80s. I discussed her care with her daughter at length on the phone as her did not answer the phone. I discussed her care with neurology Physical Exam Constitutional: WD/WN, vitals as above Respiratory: normal respiratory effort, lungs clear to auscultation Cardiovascular: RRR, no murmur, no edema Gastrointestinal (Abdomen): normal bowel sounds, soft, nontender, no hepatosplenomegaly Musculoskeletal: no cyanosis or clubbing, extremities motor strength 5/5 Skin: no rashes, warm and dry Neurologic: moves all extremities and awake; no focal motor deficits Speech / Cognition: + abnormal cognition (Only oriented to person which is her baseline over the last 6 months); normal speech Only 1 small myoclonic jerk noted in the right lower extremity, otherwise significantly improved throughout Psychiatric: Orientation: alert, oriented to person and cooperative Results & Data Results & Data Vital Signs (Past 12 Hours) Vital Signs Temp Pulse Pulse Resp BP Pulse Ox O2 Del Method 01/06/24 11:26 36.7 C 75 18 118/78 96 Room Air 10/13/23 10:00 Room Air 10/13/23 10:00 Room Air 10/13/23 08:08 36.8 C 76 18 130/84 97 Room Air 10/13/23 07:00 64 10/13/23 02:58 36.5 C 69 18 150/77 H 98 Room Air 10/13/23 01:28 77 Laboratory Results CBC, BMP reviewed PG Care Time/CCT Total # of Minutes Spent Total Time Spent with Patient: Total time spent is greater than 50% in coordination of care (as documented) at patient's floor/unit and/or counseling patient: Coding Level of Care Code 30512 SUB INP/OBS CARE 2/35MIN Diagnoses Seizure-like activity R56.9 Ambulatory dysfunction R26.2 Lyme disease A69.20 Myoclonic jerking G25.3 Acute confusion R41.0 Thiamine deficiency E51.9 GERD without esophagitis K21.9 History of TIA (transient ischemic attack) Z86.73 Dementia F03.90 Overactive bladder N32.81 Anxiety F41.9
[2023-10-13] MEDS: CALCIUM CARBONATE 1250MG TAB PO SCH (19:26)
[2023-10-13] MEDS: ESCITALOPRAM OXALATE 10 MG TAB PO SCH (20:48)
[2023-10-13] MEDS: THIAMINE HCL 100 MG TAB PO SCH (20:52)
[2023-10-14] MEDS: ATORVASTATIN 40 MG TAB PO SCH (09:08)
[2023-10-14] MEDS: CHOLECALCIFEROL 5,000 UNITS 125 MCG TAB PO SCH (09:08)
[2023-10-14] MEDS: CLOPIDOGREL BISULFATE 75 MG TAB PO SCH (09:08)
[2023-10-14] MEDS: DOCUSATE SODIUM/SENNA 50/8.6MG TAB PO SCH (09:08)
[2023-10-14] MEDS: PANTOprazole 40 MG TAB PO SCH (09:08)
[2023-10-14] MEDS: CALCIUM CARBONATE 1250MG TAB PO SCH (09:08)
[2023-10-14] MEDS: CEROVITE ADV FORMULA TAB PO SCH (09:08)
[2023-10-14] MEDS: THIAMINE HCL 100 MG TAB PO SCH ×2 (09:08→21:41)
[2023-10-14] MEDS: DIVALPROEX EXTENDED RELEASE 500 MG TAB PO SCH (09:08)
[2023-10-14] MEDS: cefTRIAXone SODIUM 2,000 MG in DEXTROSE 5 % MINI-B 50 ML IV SCH (09:09)
[2023-10-14] MEDS: ENOXAPARIN INJ 40 MG/0.4 ML SYR SQ SCH (09:09)
--- NOTE | 2023-10-14 14:36 | Hospitalist Progress Note ---
Date of Service October 14, 2023 Assessment & Plan (1) Seizure-like activity: Plan: Having seizure activity at home given witnessed episodes by of patient closing eyes and stiffening throughout entire body with tonic movements with shaking bilaterally, followed by disorientation for a few minutes. She is also having frequent myoclonic jerks bilaterally in all 4 extremities while conscious which have been going on for 1 to 2 weeks prior to admission. This all started after starting on Remeron Myoclonic jerks could be side effect of Remeron.Remeron can also induce seizures. She has a history of fairly significant dementia and severe microvascular ischemic disease on brain MRI which would put her at risk for seizures MRI brain negative for stroke EEG negative for seizures but does not rule out seizures TSH, B12, folate normal. Metabolic panel and CBC normal except did have an isolated leukocytosis on hospital day #2. Thiamine low normal last admission at 10. Lyme titer positive, Western blot pending Consult [id number] his seizures are less likely but myoclonic jerks could be from Remeron. Metabolic causes have essentially been ruled out. Lyme titer is positive-treat for Lyme, discontinued Remeron and started Depakote ER 500 Mg once daily for myoclonic jerks but also antiepileptic. Patient is significantly improved since starting Depakote If has witnessed seizure here, give Keppra 1000 mg followed by 500 mg twice daily Continue seizure precautions Received thiamine 500 Mg IV x 6 doses in case of Wernicke's encephalopathy- converted to thiamine 200 Mg p.o. twice daily-would continue for 1 month (2) Ambulatory dysfunction: Plan: could be related to side effect of Remeron and seizures as above Also with thiamine deficiency-treat with IV thiamine high-dose Treating Lyme MRI brain negative for acute PT/OT recommend rehab Much stronger on 10/13, await repeat PT evaluation but will still likely need rehab (3) Lyme disease: Plan: Lyme titer IgG positive, IgM negative Started ceftriaxone 2 g IV once daily on 10/12 and recommend continuing for 28 days for possible neuro Lyme given findings on brain MRI, possible seizure-like episodes and myoclonic jerks with alteration in mentation over the last 2 months Last day of treatment of ceftriaxone would be 11/08/2023 Follow CBC, CMP once weekly while on antibiotics Neurology does not think an LP is necessary Follow Western blot Will need an ultrasound-guided peripheral IV prior to discharge (4) Myoclonic jerking: Plan: As above, discontinued Remeron, started Depakote and has had significant improvement in both mentation and myoclonus (5) Acute confusion: Plan: As noted above, now significantly improved (6) Thiamine deficiency: Plan: thiamine 500 Mg IV every 8 hours for previous low vitamin B 1 level of 10 and converted to p.o. (7) GERD without esophagitis: Plan: Continue Protonix (8) History of TIA (transient ischemic attack): Plan: Continue Plavix and atorvastatin (9) Dementia: Plan: Moderate to severe, has progressed over the last year, previously on donepezil and Namenda which have been discontinued Follows with neurology Supportive care (10) Overactive bladder: Plan: Was on trospium-this has been discontinued and would not recommend this in the elderly due to anticholinergic effects (11) Anxiety: Plan: Continue Lexapro-dose recently decreased to 10 mg during last hospitalization Discontinued mirtazapine as noted above Plan DVT prophylaxis-Lovenox Disposition-continued stay on med/tele, much improved, medically stable for discharge. Discussed care at length with daughter on the phone and referrals were made to rehabs by CM-awaiting to hear if room available Admission and Anticipated Discharge Date Admission Date: October 12, 2023 Subjective Pt pleasantly confused, feels well. Denies problems. Physical Exam Constitutional: WD/WN, vitals as above Respiratory: normal respiratory effort, lungs clear to auscultation Cardiovascular: RRR, no murmur, no edema Gastrointestinal (Abdomen): normal bowel sounds, soft, nontender, no hepatosplenomegaly Musculoskeletal: no cyanosis or clubbing, extremities motor strength 5/5 Skin: no rashes, warm and dry Neurologic: moves all extremities and awake; no focal motor deficits Speech / Cognition: + abnormal cognition (Only oriented to person which is her baseline over the last 6 months); normal speech no myoclonic jerks at all Psychiatric: Orientation: alert, oriented to person and cooperative Results & Data Results & Data Vital Signs (Past 12 Hours) Vital Signs Temp Pulse Resp BP Pulse Ox O2 Del Method 10/14/23 12:17 36.5 C 74 18 142/84 H 99 Room Air 10/14/23 07:57 36.4 C L 65 20 150/79 H 98 Room Air Laboratory Results no labs PG Care Time/CCT Total # of Minutes Spent Total Time Spent with Patient: Total time spent is greater than 50% in coordination of care (as documented) at patient's floor/unit and/or counseling patient: Coding Level of Care Code 67199 SUB INP/OBS CARE 2/35MIN Diagnoses Seizure-like activity R56.9 Ambulatory dysfunction R26.2 Lyme disease A69.20 Myoclonic jerking G25.3 Acute confusion R41.0 Thiamine deficiency E51.9 GERD without esophagitis K21.9 History of TIA (transient ischemic attack) Z86.73 Dementia F03.90 Overactive bladder N32.81 Anxiety F41.9
[2023-10-14] MEDS: ESCITALOPRAM OXALATE 10 MG TAB PO SCH (21:41)
[2023-10-15 06:49] LABS: Basophils # (auto) 0.03 K/uL (0.00-0.20); Basophils % (auto) 0.4 %; Eosinophils # (auto) 0.17 K/uL (0.00-0.50); Eosinophils % (auto) 2.5 %; Hematocrit (blood only) 41.2 % (37.0-47.0); Hemoglobin 14.1 g/dl (12.0-16.0); Immature Granulocytes # (auto) 0.03 K/uL (0.01-0.20); Immature Granulocytes % (auto) 0.4 %; Lymphocytes # (auto) 1.53 K/uL (1.20-3.40); Lymphocytes % (auto) 22.6 %; Mean Corpuscular Hemoglobin 31.1 pg (25.0-34.0); Mean Corpuscular Hgb Conc 34.2 g/dL (32.0-36.0); Mean Corpuscular Volume 90.9 fL (80.0-100.0); Mean Platelet Volume 11.1 fL (9.4-12.4); Monocytes # (auto) 0.58 K/uL (0.11-0.59); Monocytes % (auto) 8.6 %; Neutrophils # (auto) 4.44 K/uL (1.40-6.50); Neutrophils % (auto) 65.5 %; Platelet Count 176 K/uL (130-400); RDW Coefficient of Variation 11.7 % (11.5-14.5); RDW Standard Deviation 39.3 fL (36.4-46.3); Red Blood Count 4.53 M/uL (4.20-5.40); White Blood Count 6.78 K/ul (4.8-10.8)
[2023-10-15 07:22] LABS: Albumin Globulin Ratio 1.2 (0.9-2); Albumin Level 3.8 gm/dl (3.4-5.0); BUN Creatinine Ratio 19.4 (10-20); Creatinine Clr Calc Pharmacy 54.6 ml/min; Est GFR (African American) 98.3 ml/min; Est GFR (Non-African American) 84.8 ml/min; Globulin 3.1 gm/dl (2.5-4.0); Magnesium 1.9 mg/dl (1.7-2.4); Potassium 3.5 mmol/L (3.5-5.1); Total Protein 6.9 gm/dl (6.0-8.3)
[2023-10-15] MEDS: DOCUSATE SODIUM/SENNA 50/8.6MG TAB PO SCH (08:19)
[2023-10-15] MEDS: THIAMINE HCL 100 MG TAB PO SCH ×2 (08:19→20:39)
[2023-10-15] MEDS: CEROVITE ADV FORMULA TAB PO SCH (08:19)
[2023-10-15] MEDS: CLOPIDOGREL BISULFATE 75 MG TAB PO SCH (08:19)
[2023-10-15] MEDS: CALCIUM CARBONATE 1250MG TAB PO SCH (08:19)
[2023-10-15] MEDS: ENOXAPARIN INJ 40 MG/0.4 ML SYR SQ SCH (08:20)
[2023-10-15] MEDS: DIVALPROEX EXTENDED RELEASE 500 MG TAB PO SCH (08:20)
[2023-10-15] MEDS: PANTOprazole 40 MG TAB PO SCH (08:20)
[2023-10-15] MEDS: CHOLECALCIFEROL 5,000 UNITS 125 MCG TAB PO SCH (08:20)
[2023-10-15] MEDS: cefTRIAXone SODIUM 2,000 MG in DEXTROSE 5 % MINI-B 50 ML IV SCH (08:20)
[2023-10-15] MEDS: ATORVASTATIN 40 MG TAB PO SCH (08:20)
--- NOTE | 2023-10-15 14:02 | Infectious Disease Consult ---
Date of Consultation October 15, 2023 Assessment & Plan (1) Lyme disease: (2) Acute confusion: (3) Myoclonic jerking: (4) Seizure-like activity: Plan 78 yo F with a history of HTN, dementia, TIA who presented on 10/10/23 with confusion, myoclonic jerking. She was reportedly in her USOH when she went to bed at 10pm the night before, but her found her on the floor asleep around 6am. She was assisted back to bed, but slept longer than usual and when he went to wake her at noon, she was confused and had difficulty getting out of bed. On presentation, pt was afebrile, VSS, with WBC 10.14, procalcitonin <0.05, UA negative. CXR negative. She was felt to have asymmetric weakness in the LLE. CT head with no acute findings. CTA head/neck showed no vessel occlusion, no intracranial aneurysm. MRI brain was motion degraded, but showed no acute intracranial abnormality, showed advanced chronic microvascular ischemic disease. Her reported that pt has been having several episodes over the last ~1.5 weeks of whole body shaking with eyes rolling back and head, R sided s haking more than L followed by a period of a few minutes of disorientation. She has also been having frequent myoclonic jerks in her legs and arms for the last 1.5 weeks. She was started on mirtazapine about 3 weeks prior. Neurology was consulted. EEG showed mild generalized slowing, no focal epileptogenic activity. Neurology thought seizures were less likely. Mirtazapine was discontinued as it can cause confusion and twitching. WBC increased to 15 on 10/12. A Lyme screen returned with positive IgG, negative IgM. Confirmatory western blot is pending. Pt was started on ceftriaxone on 10/12. Leukocytosis has resolved. Micro: 10/11 Lyme screen: IgG+, IgM-. Western blot pending Abx: Ceftriaxone 2 g 10/12 - present Problems: #Lyme IgG positive #Encephalopathy #Myoclonic jerking #Dementia #Antibiotic allergies: sulfa (hives), penicillins (rash), doxycycline (N/V) Discussion: The patient has many reasons for nervous system disease other than Lyme disease, including Alzheimer's dementia with advanced chronic microvascular ischemic disease seen on MRI, potential side effects from mirtazapine. [employer] PRO[employer] MA[employer]GER Lyme disease typically presents as a meningitis in early disseminated disease--pt does not have symptoms of meningitis, and her IgM is negative, indicating that this is not early Lyme infection. Late Lyme disease with parenchymal [employer]JECT MANAGER involvement with encephalitis is extremely rare and presents with abnormal MRI brain typically affecting white matter, with abnormal CSF showing lymphocytic pleocytosis. Her MRI is suggestive of chronic microvascular ischemic disease. Pt has not had a lumbar puncture to diagnose [employer] PROJECT MANAGER Lyme. The positive serum Lyme IgG and negative IgM more likely indicates past Lyme infection that has resolved, and unrelated to her current presentation. Recommendations: -The likelihood of Lyme encephalitis is very low. If team wants to pursue further testing for this diagnosis, would perform a LP and send for cell counts and Borrelia burgdorferi antibodies. -Follow-up confirmatory Lyme western blot -Can continue ceftriaxone for now -Given that her encephalopathy has several other possible causes and the likelihood of Lyme encephalitis is very low, I would not send this patient out with a PICC and 4 weeks of ceftriaxone as risks would likely outweigh the benefits. Will continue to follow. Please page [facility] with further questions. Consultation Information This patient recommendation is based on a telemedicine consult request which was completed asynchronously through chart review and information provided by the primary physician. The patient was not seen or examined today. The evaluation is consultative in nature and all patient care and treatment decisions can either be accepted or rejected by the patient's primary hospital-based treating physician using their own independent medical judgment for their patient. Emt/Paramedic contact information: Please call [facility] [phone]. (Phone Number For Physician Use Only) Time Spent Reviewing Chart: 31+ minutes History of Present Illness Reason for Consultation: Evaluate for [employer]GER Lyme Attending Physician: Hiren Figueroa MD History of Present Illness 78 yo F with a history of HTN, dementia, TIA who presented on 10/10/23 after her found her on the floor asleep around 6am. She was in her normal state of health at 10pm the night before. She was assisted back to bed, but was very somnolent. At noon, had difficulty getting out of bed and was more confused than usual. On presentation, pt was afebrile, VSS. Labs showed WBC 10.14, procalcitonin <0.05, UA negative. CXR negative. She was felt to have asymmetric weakness in the LLE. CT head with no acute findings. CTA head/neck showed no vessel occlusion, no intracranial aneurysm. MRI brain was motion degraded, but showed no acute intracranial abnormality, showed advanced chronic microvascular ischemic disease. Her reported that pt has been having several episodes over the last ~1.5 weeks of whole body shaking with eyes rolling back and head, R sided shaking more than L followed by a period of a few minutes of disorientation. She has also been having frequent myoclonic jerks in her legs and arms for the last 1.5 weeks. She was started on Remeron about 3 weeks prior. Neurology was consulted and there was concern for a side effect of Remeron. Remeron was discontinued. An EEG was performed, which showed mild generalized slowing, no focal epileptogenic activity. WBC increased to 15 on 10/12. A Lyme screen returned with positive IgG, negative IgM. Confirmatory western blot is pending. Pt was started on ceftriaxone. Allergies Allergy/AdvReac Type Severity Reaction Status Date / Time Sulfa (Sulfonamide Allergy Intermediate HIVES Verified 10/10/23 15:27 Antibiotics) Penicillins Allergy Mild RASH Verified 10/10/23 15:27 doxycycline AdvReac Nausea and Verified 10/10/23 15:27 vomiting Home Medications Medication Instructions Recorded Confirmed Type calcium carbonate 600 mg calcium 600 mg PO QAM 11/24/19 10/10/23 History (1,500 mg) tablet (Calcium) multivitamin with minerals 1 tab PO QAM 01/17/21 10/10/23 History (Hair,Skin and Nails tablet) aspirin 81 mg tablet,delayed 81 mg PO QAM #30 tabs 02/26/23 10/10/23 Rx release trospium 20 mg tablet 20 mg PO BID #60 tabs 08/02/23 10/10/23 Rx escitalopram oxalate 10 mg tablet 10 mg PO HS #30 tabs 08/22/23 10/10/23 Rx cholecalciferol (vitamin D3) 125 125 mcg PO DAILY #30 caps 08/28/23 10/10/23 Rx mcg (5,000 unit) capsule cholecalciferol (vitamin D3) 25 5,000 unit PO QAM 08/29/23 10/10/23 History mcg (1,000 unit) capsule omeprazole 40 mg capsule,delayed 40 mg PO DAILY #90 caps 11/22/23 01/03/24 Rx release mirtazapine 7.5 mg tablet 7.5 mg PO DAILY #30 tabs 09/04/23 10/10/23 Rx atorvastatin 40 mg tablet 40 mg PO QAM #90 tabs 10/05/23 10/10/23 Rx ondansetron HCl 4 mg tablet 4 mg PO Q8 PRN Nausea And Vomiting 10/10/23 10/10/23 History Patient History Medical History History of TIA (transient ischemic attack) Thiamine deficiency Low sodium levels Dizziness Left arm numbness Arm paresthesia, right Weakness Nausea reason for upcoming procedure History of osteonecrosis DDD (degenerative disc disease) HTN (hypertension) SOBOE (shortness of breath on exertion) Cognitive and behavioral changes memory issues Anxiety Adjustment disorder with depressed mood Cyst of kidney, acquired GERD without esophagitis Osteoporosis Scoliosis mild Signs and symptoms involving cognition Surgical History Hx of colonoscopy History of cataract surgery BL History of tooth extraction History of esophagogastroduodenoscopy (EGD) S/P tubal ligation Family History Mother , age 83 Lymphoma Hypertension Grandmother (Paternal) Breast cancer Grandfather (Maternal) Colorectal cancer Father Dementia Stroke Brother Lung cancer Stroke Other No family history of adverse response to anesthesia Denies family history of Ovarian cancer Prostate cancer Myocardial infarction Social History Smoking Status: Unknown if ever smoked Second Hand Exposure: Yes; Do You Dip or Chew Tobacco: No; Preferred Language: Turkish Communication Ability: Effective Visual Impairment: No Limitations Hearing Ability: Normal Project Manager/Team Coach Required: No Beliefs That Will Affect Care: None marital status: Current Living Situation: Spouse Feels Safe at Home: Yes Seatbelt Use: always Assistive Devices: Cane, Walker and Wheelchair Assistive Devices Comment: USES CANE AT BASELINE Review of System Patient not seen Physical Exam Physical Exam: Patient not seen Results & Data Vital Signs (Past 12 Hours) Vital Signs Temp Pulse Resp BP Pulse Ox O2 Del Method 10/15/23 07:13 36.6 C 76 16 147/91 H 98 Room Air Laboratory Results Short CBC 10/15/23 Range/Units 06:05 WBC 6.78 (4.8-10.8) K/ul Hgb 14.1 (12.0-16.0) g/dl Hct 41.2 (37.0-47.0) % Plt Count 176 (130-400) K/uL BMP 10/15/23 06:05 Sodium 137 Potassium 3.5 Chloride 103 Carbon Dioxide 25 BUN 13 Creatinine 0.67 Glucose 96 Calcium 9.0 Liver Function 10/15/23 Range/Units 06:05 Total Bilirubin 1.0 (0.2-1.0) mg/dl AST 31 (13-39) U/L ALT 20 (7-52) U/L Alkaline Phosphatase 134 H (34-104) U/L Albumin 3.8 (3.4-5.0) gm/dl Medications Administered Current Inpatient Medications Acetaminophen (Acetaminophen 325 Mg Tab) 650 mg PO Q4H PRN PRN Reason: Pain or Fever Stop: 11/09/23 17:42 Atorvastatin Calcium (Atorvastatin 40 Mg Tab) 40 mg PO [facility] Stop: 11/10/23 08:59 Last Admin: 10/15/23 08:20 Dose: 40 mg Bisacodyl (Bisacodyl 10 Mg Supp) 10 mg [place] DAILY PRN PRN Reason: Constipation Stop: 11/11/23 10:29 Calcium Carbonate (Calcium Carbonate 1250mg Tab) 1,250 mg PO [facility] Stop: 11/12/23 18:59 Last Admin: 10/15/23 08:19 Dose: 1,250 mg Clopidogrel Bisulfate (Clopidogrel Bisulfate 75 Mg Tab) 75 mg PO [facility] Stop: 11/10/23 08:59 Last Admin: 10/15/23 08:19 Dose: 75 mg Divalproex Sodium (Divalproex Extended Release 500 Mg Tab) 500 mg PO [facility] Stop: 11/11/23 09:14 Last Admin: 10/15/23 08:20 Dose: 500 mg Enoxaparin Sodium (Enoxaparin Inj 40 Mg/0.4 Ml Syr) 40 mg SQ Q24H [facility] Stop: 11/10/23 08:59 Last Admin: 10/15/23 08:20 Dose: 40 mg Escitalopram Oxalate (Escitalopram Oxalate 10 Mg Tab) 10 mg PO [facility] Stop: 11/09/23 20:59 Last Admin: 10/14/23 21:41 Dose: 10 mg Ceftriaxone Sodium 2,000 mg/ (Dextrose) 50 mls @ 100 mls/hr IV Q24H [facility]; Protocol Stop: 10/22/23 08:44 Last Infusion: 10/15/23 08:55 Dose: Infused Multivitamins/Minerals (Cerovite Adv Formula Tab) 1 tab PO QAM [facility] Stop: 11/10/23 08:59 Last Admin: 10/15/23 08:19 Dose: 1 tab Ondansetron HCl (Ondansetron Inj 2 Mg/Ml 2 Ml Vial) 4 mg IV Q6H PRN PRN Reason: Nausea And Vomiting Stop: 11/11/23 10:29 Pantoprazole Sodium (Pantoprazole 40 Mg Tab) 40 mg PO DAILY [facility] Stop: 11/10/23 08:59 Last Admin: 10/15/23 08:20 Dose: 40 mg Senna/Docusate Sodium (Docusate Sodium/Senna 50/8.6mg Tab) [facility] Stop: 11/11/23 10:29 Last Admin: 10/15/23 08:19 Dose: 1 tab Thiamine HCl (Thiamine Hcl 100 Mg Tab) 200 mg PO BID [facility] Stop: 11/12/23 20:59 Last Admin: 10/15/23 08:19 Dose: 200 mg Vitamin D (Cholecalciferol 5,000 Units 125 Mcg Tab) 5,000 units [facility] Stop: 11/10/23 08:59 Last Admin: 10/15/23 08:20 Dose: 5,000 units
--- NOTE | 2023-10-15 17:53 | Hospitalist Progress Note ---
Date of Service October 15, 2023 Assessment & Plan (1) Seizure-like activity: Plan: Neurology consultation and recommendations appreciated. EEG and brain MRI are negative. Remeron has been switched to Depakote. Remeron may have been the cause of her myoclonic jerking. Known history of severe dementia and severe microvascular ischemic disease on brain MRI which would put her at risk for seizures. MRI brain negative for stroke. EEG negative for seizures but does not rule out seizures. TSH, B12, folate normal. Lyme IgG titer is positive. Western blot IgM pending. Currently on Rocephin. Infectious disease consultation and recommendations appreciated. She is not a candidate for long- term Rocephin therapy. (2) Ambulatory dysfunction: Plan: Continue OT and PT. She will need placement at discharge. No evidence of CVA on brain MRI scan. Infectious disease feels that acute Lyme encephalitis is of low probability. (3) Lyme disease: Plan: Lyme titer IgG positive, IgM negative. Awaiting Western blot IgM results. Infectious disease consultation and recommendations appreciated. She is not a candidate for long-term Rocephin therapy. Neurology does not think an LP is necessary. Await IgM Western blot. (4) Myoclonic jerking: Plan: Possibly related to recent Remeron prescription. She is now on Depakote. Improved. (5) Acute confusion: Plan: Acute metabolic encephalopathy present on admission. Now resolved (6) Thiamine deficiency: Plan: thiamine 500 Mg IV every 8 hours then converted to p.o. (7) GERD without esophagitis: Plan: Stable. Continue Protonix (8) History of TIA (transient ischemic attack): Plan: Stable. Continue Plavix and atorvastatin (9) Dementia: Plan: Supportive care. Moderate to severe, has progressed over the last year. Previously on donepezil and Namenda which have been discontinued. Outpatient follow-up with neurology. Plan [facility] Admission and Anticipated Discharge Date Admission Date: October 12, 2023 Subjective Alert and oriented. No new problems. Remeron has been discontinued and she is now on Depakote. MRI scan is negative and EEG is negative. Discussed with infectious disease. Long-term IV Rocephin is not recommended. IgM Western blot remains pending. Review of Systems 2 Review of Systems: Constitutional-no fever or chills ENT-no blurred vision, no double vision, no epistaxis, no sore throat Respiratory-no cough, no wheezing, no shortness of breath Cardiac-no palpitations, no chest pain, no syncope GI-no nausea, vomiting, diarrhea, melena, hematochezia -no urinary retention, no urinary incontinence, no dysuria, no hematuria Musculoskeletal-no joint pain, no muscle tenderness Skin-no bruising, no rashes, no pruritus Neuro-no isolated weakness, no paresthesia, no weakness Psych-no depression, no anxiety Physical Exam 2 Physical Exam: General-alert and oriented x3, no fevers, no chills HEENT-head atraumatic and normocephalic, pupils equal and reactive to light, extraocular muscles intact Neck-no lymphadenopathy or thyromegaly, trachea midline Chest-clear to auscultation and percussion. No rales, wheezing or rhonchi Cardiac-regular rate and rhythm, normal S1 and S2 Abdomen-normal bowel sounds, nontender, no hepatosplenomegaly Extremities-no cyanosis, clubbing, or edema Neuro-cranial nerves II through XII intact, motor and sensory function within normal limits, strength symmetrical, no focal deficits Psych-normal affect, normal mood Results & Data Results & Data Vital Signs (Past 12 Hours) Vital Signs Temp Pulse Resp BP Pulse Ox O2 Del Method 10/15/23 14:33 36.6 C 82 16 112/77 99 Room Air 10/15/23 07:13 36.6 C 76 16 147/91 H 98 Room Air Laboratory Results 10/15/23 06:05 10/15/23 06:05 PG Care Time/CCT Total # of Minutes Spent Total Time Spent with Patient: Total time spent is greater than 50% in coordination of care (as documented) at patient's floor/unit and/or counseling patient: Coding Level of Care Code 35801 SUB INP/OBS CARE 3/50MIN Diagnoses Seizure-like activity R56.9 Ambulatory dysfunction R26.2 Lyme disease A69.20 Myoclonic jerking G25.3 Acute confusion R41.0 Thiamine deficiency E51.9 GERD without esophagitis K21.9 History of TIA (transient ischemic attack) Z86.73 Dementia F03.90
[2023-10-15] MEDS: ESCITALOPRAM OXALATE 10 MG TAB PO SCH (20:39)
[2023-10-16 03:47] LABS: 18KDIGG Band REACTIVE; 23KDIGG Band NON-REACTIVE; 23KDIGM Band REACTIVE; 28KDIGG Band REACTIVE; 30KDIGG Band REACTIVE; 39KDIGG Band REACTIVE; 39KDIGM Band NON-REACTIVE; 41KDIGG Band REACTIVE; 41KDIGM Band NON-REACTIVE; 45KDIGG Band NON-REACTIVE; 58KDIGG Band REACTIVE; 66KDIGG Band NON-REACTIVE; 93KDIGG Band REACTIVE; Lyme Antibodies, WB IgG POSITIVE (NEGATIVE); Lyme Antibodies, WB IgM NEGATIVE (NEGATIVE)
[2023-10-16] MEDS: CLOPIDOGREL BISULFATE 75 MG TAB PO SCH (08:21)
[2023-10-16] MEDS: PANTOprazole 40 MG TAB PO SCH (08:21)
[2023-10-16] MEDS: ENOXAPARIN INJ 40 MG/0.4 ML SYR SQ SCH (08:22)
[2023-10-16] MEDS: DIVALPROEX EXTENDED RELEASE 500 MG TAB PO SCH (08:22)
[2023-10-16] MEDS: ATORVASTATIN 40 MG TAB PO SCH (08:22)
[2023-10-16] MEDS: CALCIUM CARBONATE 1250MG TAB PO SCH (08:22)
[2023-10-16] MEDS: CEROVITE ADV FORMULA TAB PO SCH (08:22)
[2023-10-16] MEDS: CHOLECALCIFEROL 5,000 UNITS 125 MCG TAB PO SCH (08:22)
[2023-10-16] MEDS: DOCUSATE SODIUM/SENNA 50/8.6MG TAB PO SCH (08:22)
[2023-10-16] MEDS: THIAMINE HCL 100 MG TAB PO SCH ×2 (08:22→20:09)
[2023-10-16] MEDS: cefTRIAXone SODIUM 2,000 MG in DEXTROSE 5 % MINI-B 50 ML IV SCH (08:27)
--- NOTE | 2023-10-16 11:13 | Infectious Disease Progress Nt ---
Date of Service October 16, 2023 Assessment & Plan (1) Lyme disease: (2) Acute confusion: (3) Myoclonic jerking: (4) Seizure-like activity: Plan 78 yo F with a history of HTN, dementia, TIA who presented on 10/10/23 with confusion, myoclonic jerking. She was reportedly in her USOH when she went to bed at 10pm the night before, but her found her on the floor asleep around 6am. She was assisted back to bed, but slept longer than usual and when he went to wake her at noon, she was confused and had difficulty getting out of bed. On presentation, pt was afebrile, VSS, with WBC 10.14, procalcitonin <0.05, UA negative. CXR negative. She was felt to have asymmetric weakness in the LLE. CT head with no acute findings. CTA head/neck showed no vessel occlusion, no intracranial aneurysm. MRI brain was motion degraded, but showed no acute intracranial abnormality, showed advanced chronic microvascular ischemic disease. Her reported that pt has been having several episodes over the last ~1.5 weeks of whole body shaking with eyes rolling back and head, R sided shaking more than L followed by a period of a few minutes of disorientation. She has also been having frequent myoclonic jerks in her legs and arms for the last 1.5 weeks. She was started on mirtazapine about 3 weeks prior. Neurology was consulted. EEG showed mild generalized slowing, no focal epileptogenic activity. Neurology thought seizures were less likely. Mirtazapine was discontinued as it can cause confusion and twitching. Was started on Depakote with rapid improvement. WBC increased to 15 on 10/12. A Lyme screen returned with positive IgG, negative IgM. Western blot confirmed +IgG, -IgM. Pt was started on ceftriaxone on 10/12. Leukocytosis has resolved. Micro: 10/11 Lyme screen: IgG+, IgM-. Western blot IgG+ (7 bands), IgM- (1 band) Abx: Ceftriaxone 2 g 10/12 - 10/16 Problems: #Lyme IgG positive, IgM negative: indicating past exposure #Encephalopathy #Myoclonic jerking #Dementia #Antibiotic allergies: sulfa (hives), penicillins (rash), doxycycline (N/V) Discussion: The patient has many reasons for nervous system disease other than Lyme disease, including Alzheimer's dementia with advanced chronic microvascular ischemic disease seen on MRI, potential side effects from mirtazapine. [employer] Lyme disease typically presents as a meningitis in early disseminated disease--pt does not have symptoms of meningitis, and her IgM is negative, indicating that this is not early Lyme infection. Late Lyme disease with parenchymal [employer] involvement with encephalitis is extremely rare and presents with abnormal MRI brain typically affecting white matter, with abnormal CSF showing lymphocytic pleocytosis. Her MRI is suggestive of chronic microvascular ischemic disease. Pt has not had a lumbar puncture to diagnose [employer] Lyme. The positive serum Lyme IgG and negative IgM more likely indicates past Lyme infection that has resolved, and unrelated to her current presentation. Recommendations: -Agree with discontinuing ceftriaxone. The likelihood of Lyme encephalitis is very low--her acute symptoms can be explained by side effects from mirtazapine, and she had rapid improvement in myoclonic jerking with Depakote. She also has chronic microvascular disease and dementia which can explain her more chronic symptoms. To truly rule out a late Lyme encephalitis, would need an LP to send CSF for cell counts and Borrelia burgdorferi antibodies. Given the low likelihood, I think it is reasonable to hold off on LP and further treatment of Lyme disease. Discussed with hospitalist and neurology. Will sign off. Please page [facility] with further questions. Admission and Anticipated Discharge Date Admission Date: October 12, 2023 Subjective This patient recommendation is based on a telemedicine consult request which was completed asynchronously through chart review and information provided by the primary physician. The patient was not seen or examined today. The evaluation is consultative in nature and all patient care and treatment decisions can either be accepted or rejected by the patient's primary hospital-based treating physician using their own independent medical judgment for their patient. Time Spent Reviewing Chart: 11 - 20 minutes No acute events Review of System Patient not seen Physical Exam Physical Exam: Patient not seen Results & Data Vital Signs (Past 12 Hours) Vital Signs Temp Pulse Resp BP Pulse Ox O2 Del Method 10/16/23 07:24 37.1 C 78 16 121/73 95 Room Air Medications Administered Current Inpatient Medications Acetaminophen (Acetaminophen 325 Mg Tab) 650 mg PO Q4H PRN PRN Reason: Pain or Fever Stop: 11/09/23 17:42 Last Admin: 10/15/23 20:40 Dose: 650 mg Atorvastatin Calcium ([facility]atin 40 Mg Tab) [facility] Stop: 11/10/23 08:59 Last Admin: 10/16/23 08:22 Dose: 40 mg Bisacodyl (Bisacodyl 10 Mg Supp) 10 mg HI DAILY PRN PRN Reason: Constipation Stop: 11/11/23 10:29 Calcium Carbonate (Calcium Carbonate 1250mg Tab) 1,250 mg PO [facility] Stop: 11/12/23 18:59 Last Admin: 10/16/23 08:22 Dose: 1,250 mg Clopidogrel Bisulfate (Clopidogrel Bisulfate 75 Mg Tab) 75 mg PO [facility] Stop: 11/10/23 08:59 Last Admin: 10/16/23 08:21 Dose: 75 mg Divalproex Sodium (Divalproex Extended Release 500 Mg Tab) 500 mg PO [facility] Stop: 11/11/23 09:14 Last Admin: 10/16/23 08:22 Dose: 500 mg Enoxaparin Sodium (Enoxaparin Inj 40 Mg/0.4 Ml Syr) 40 mg SQ Q24H [facility] Stop: 11/10/23 08:59 Last Admin: 10/16/23 08:22 Dose: 40 mg Escitalopram Oxalate (Escitalopram Oxalate 10 Mg Tab) 10 mg PO HS [facility] Stop: 11/09/23 20:59 Last Admin: 10/15/23 20:39 Dose: 10 mg Multivitamins/Minerals (Cerovite Adv Formula Tab) [facility] Stop: 11/10/23 08:59 Last Admin: 10/16/23 08:22 Dose: 1 tab Ondansetron HCl (Ondansetron Inj 2 Mg/Ml 2 Ml Vial) 4 mg IV Q6H PRN PRN Reason: Nausea And Vomiting Stop: 11/11/23 10:29 Pantoprazole Sodium (Pantoprazole 40 Mg Tab) 40 mg PO DAILY [facility] Stop: 11/10/23 08:59 Last Admin: 10/16/23 08:21 Dose: 40 mg Senna/Docusate Sodium (Docusate Sodium/Senna 50/8.6mg Tab) 1 [facility] Stop: 11/11/23 10:29 Last Admin: 10/16/23 08:22 Dose: Not Given Thiamine HCl (Thiamine Hcl 100 Mg Tab) 200 mg PO BID [facility] Stop: 11/12/23 20:59 Last Admin: 10/16/23 08:22 Dose: 200 mg Vitamin D (Cholecalciferol 5,000 Units 125 Mcg Tab) 5,000 units PO [facility] Stop: 11/10/23 08:59 Last Admin: 10/16/23 08:22 Dose: 5,000 units
--- NOTE | 2023-10-16 15:32 | Hospitalist Progress Note ---
Date of Service October 16, 2023 Assessment & Plan (1) Seizure-like activity: Plan: Neurology consultation and recommendations appreciated. EEG and brain MRI are negative. Remeron has been switched to Depakote. Remeron may have been the cause of her myoclonic jerking. Known history of severe dementia and severe microvascular ischemic disease on brain MRI which would put her at risk for seizures. MRI brain negative for stroke. EEG negative for seizures but does not rule out seizures. TSH, B12, folate normal. Lyme IgG titer is positive. Western blot IgM negative. Rocephin has been discontinued. Infectious disease consultation and recommendations appreciated. (2) Ambulatory dysfunction: Plan: Continue OT and PT. She will need placement at discharge. No evidence of CVA on brain MRI scan. (3) Lyme disease: Plan: Acute Lyme disease ruled out. Western blot IgM is negative. Infectious disease consultation and recommendations appreciated. She is not a candidate for long- term Rocephin therapy. Neurology does not think an LP is necessary. Rocephin has been discontinued (4) Myoclonic jerking: Plan: Possibly related to recent Remeron prescription. She is now on Depakote. Improved. (5) Acute confusion: Plan: Acute metabolic encephalopathy present on admission. Now resolved (6) Thiamine deficiency: Plan: thiamine initially given IV and now has been converted to oral dosing. (7) GERD without esophagitis: Plan: Stable. Continue Protonix (8) History of TIA (transient ischemic attack): Plan: Stable. Continue Plavix and atorvastatin (9) Dementia: Plan: Supportive care. Moderate to severe, has progressed over the last year. Previously on donepezil and Namenda which have been discontinued. Outpatient follow-up with neurology. Plan Awaiting approval to discharge [facility] Admission and Anticipated Discharge Date Admission Date: October 12, 2023 Subjective Alert. No new problems. Case management is working on placement at either [facility] or SNF. I spoke to the daughter, April by phone and answered all her questions. I discussed the case with infectious disease. IgM Western blot is negative. Low likelihood of Lyme encephalitis. Rocephin has been discontinued. She remains on Depakote which replaces Remeron. She is stable at this time. Review of Systems 2 Review of Systems: Constitutional-no fever or chills ENT-no blurred vision, no double vision, no epistaxis, no sore throat Respiratory-no cough, no wheezing, no shortness of breath Cardiac-no palpitations, no chest pain, no syncope GI-no nausea, vomiting, diarrhea, melena, hematochezia -no urinary retention, no urinary incontinence, no dysuria, no hematuria Musculoskeletal-no joint pain, no muscle tenderness Skin-no bruising, no rashes, no pruritus Neuro-no isolated weakness, no paresthesia, no weakness Psych-no depression, no anxiety Physical Exam 2 Physical Exam: General-alert and oriented x3, no fevers, no chills HEENT-head atraumatic and normocephalic, pupils equal and reactive to light, extraocular muscles intact Neck-no lymphadenopathy or thyromegaly, trachea midline Chest-clear to auscultation and percussion. No rales, wheezing or rhonchi Cardiac-regular rate and rhythm, normal S1 and S2 Abdomen-normal bowel sounds, nontender, no hepatosplenomegaly Extremities-no cyanosis, clubbing, or edema Neuro-cranial nerves II through XII intact, motor and sensory function within normal limits, strength symmetrical, no focal deficits Psych-normal affect, normal mood Results & Data Results & Data Vital Signs (Past 12 Hours) Vital Signs Temp Pulse Resp BP Pulse Ox O2 Del Method 10/16/23 14:41 36.7 C 74 16 134/77 100 Room Air 10/16/23 07:24 37.1 C 78 16 121/73 95 Room Air Laboratory Results 10/15/23 06:05 10/15/23 06:05 PG Care Time/CCT Total # of Minutes Spent Total Time Spent with Patient: Total time spent is greater than 50% in coordination of care (as documented) at patient's floor/unit and/or counseling patient: Coding Level of Care Code 16145 SUB INP/OBS CARE 3/50MIN Diagnoses Seizure-like activity R56.9 Ambulatory dysfunction R26.2 Lyme disease A69.20 Myoclonic jerking G25.3 Acute confusion R41.0 Thiamine deficiency E51.9 GERD without esophagitis K21.9 History of TIA (transient ischemic attack) Z86.73 Dementia F03.90
[2023-10-16] MEDS: ESCITALOPRAM OXALATE 10 MG TAB PO SCH (20:09)
[2023-10-16] MEDS ORDERED: MELATONIN 3 MG TAB PO SCH (21:00)
[2023-10-17] MEDS: ATORVASTATIN 40 MG TAB PO SCH (08:50)
[2023-10-17] MEDS: DIVALPROEX EXTENDED RELEASE 500 MG TAB PO SCH (08:50)
[2023-10-17] MEDS: PANTOprazole 40 MG TAB PO SCH (08:50)
[2023-10-17] MEDS: CLOPIDOGREL BISULFATE 75 MG TAB PO SCH (08:50)
[2023-10-17] MEDS: CALCIUM CARBONATE 1250MG TAB PO SCH (08:50)
[2023-10-17] MEDS: CHOLECALCIFEROL 5,000 UNITS 125 MCG TAB PO SCH (08:50)
[2023-10-17] MEDS: DOCUSATE SODIUM/SENNA 50/8.6MG TAB PO SCH (08:50)
[2023-10-17] MEDS: THIAMINE HCL 100 MG TAB PO SCH (08:50)
[2023-10-17] MEDS: CEROVITE ADV FORMULA TAB PO SCH (08:50)
[2023-10-17] MEDS: ENOXAPARIN INJ 40 MG/0.4 ML SYR SQ SCH (08:51)
--- NOTE | 2023-10-17 09:39 | Discharge Summary ---
Date of Service October 17, 2023 Admission HPI Per Admitting Provider Marlene is a 78-year-old female who was in her normal state of health 10 PM 10/09/2023 and he was found by her on the floor sleep around 6 AM this morning. Patient was assisted back to bed at that time, but was very somnolent and at noon had difficulty getting out of bed and was more confused than normal and presented to the ER for further evaluation. She has a past history of TIA, hyponatremia, GERD, anxiety and is on aspirin/atorvastatin [employer]. On arrival she has no leukocytosis, BMP is with normal renal function, normal sodium, normal, high-sensitivity troponin is normal, procalcitonin is normal Marlene seen at the bedside. Limited history due to dementia. By report she was found on the floor this morning around 6 AM, increased confusion and weakness around noon today. In the ER she is found to have asymmetric/new left lower extremity weakness which is not her baseline has been recommended for stroke eval. She does not have any pain on L logroll or passive hip flexion/external rotation. Call to patient's --> to voicemail, pending additional collateral at time of admission. Patient denies fever, chills, sweats, dysuria, abdominal pain, hip pain at time of admission Medical History: Reviewed Medications: Reviewed Surgical History: Reviewed Family history: Reviewed Allergies: Reviewed Social History: Reviewed Code Status: Full per prior EMR review, pending discussion with surrogate. Principal Diagnosis Remeron adverse effect, acute toxic encephalopathy Discharge Exam General-alert and oriented x3, no fevers, no chills HEENT-head atraumatic and normocephalic, pupils equal and reactive to light, extraocular muscles intact Neck-no lymphadenopathy or thyromegaly, trachea midline Chest-clear to auscultation and percussion. No rales, wheezing or rhonchi Cardiac-regular rate and rhythm, normal S1 and S2 Abdomen-normal bowel sounds, nontender, no hepatosplenomegaly Extremities-no cyanosis, clubbing, or edema Neuro-cranial nerves II through XII intact, motor and sensory function within normal limits, strength symmetrical, no focal deficits Psych-normal affect, normal mood Discharge Data Allergies Allergy/AdvReac Type Severity Reaction Status Date / Time Sulfa (Sulfonamide Allergy Intermediate HIVES Verified 10/10/23 15:27 Antibiotics) Penicillins Allergy Mild RASH Verified 10/10/23 15:27 doxycycline AdvReac Nausea and Verified 10/10/23 15:27 vomiting Consultations 10/10/23 16:34 ED Decision to Admit Stat 10/11/23 14:16 Consult Neurology Routine 10/15/23 10:00 Consult Infectious Diseases Routine Ordered Studies 10/10/23 14:49 CT angio head w con Stat CT angio neck with con Stat CT head/brain wo con Stat 10/11/23 09:00 MR brain wo con Routine Hospital Course (1) Seizure-like activity: Neurology consultation and recommendations appreciated. EEG and brain MRI are negative. Remeron has been switched to Depakote. Remeron may have been the cause of her myoclonic jerking. Known history of severe dementia and severe microvascular ischemic disease on brain MRI which would put her at risk for seizures. MRI brain negative for stroke. EEG negative for seizures but does not rule out seizures. TSH, B12, folate normal. Lyme IgG titer is positive. Western blot IgM negative. Rocephin has been discontinued. Infectious disease consultation and recommendations appreciated. (2) Ambulatory dysfunction: Continue OT and PT. She will need placement at discharge. No evidence of CVA on brain MRI scan. (3) Lyme disease: Acute Lyme disease ruled out. Western blot IgM is negative. Infectious disease consultation and recommendations appreciated. She is not a candidate for long- term Rocephin therapy. Neurology does not think an LP is necessary. Rocephin has been discontinued (4) Myoclonic jerking: Possibly related to recent Remeron prescription. She is now on Depakote. Improved. (5) Acute confusion: Acute toxic encephalopathy present on admission. Now resolved (6) Thiamine deficiency: thiamine initially given IV and now has been converted to oral dosing. (7) GERD without esophagitis: Stable. Continue Protonix (8) History of TIA (transient ischemic attack): Stable. Continue Plavix and atorvastatin (9) Dementia: Supportive care. Moderate to severe, has progressed over the last year. Previously on donepezil and Namenda which have been discontinued. Outpatient follow-up with neurology. Plan IPR has been denied by insurance. She will be discharged today, October 17, to [facility] Total Time Total Time Spent Total Time Spent (In Minutes): 45 minutes Discharge Plan Discharge Items Patient Disposition: Transfer Longterm Fac Reason For Visit: CVA EVAL, WEAKNESS Discharge Diagnosis: Remeron adverse effect, acute toxic encephalopathy, thiamine deficiency Activity: Resume your previous activity Non-emergency contact: Primary Care Provider and Neurologist Call non-emergency contact if: you have any medication questions and your symptoms worsen Follow-up/Referrals: Abigail Humphrey MD [Primary Care Provider] - Diet: Regular and Heart Healthy Addtl Attending Provider Instructions: Remeron has been switched to Depakote Pending Studies at Discharge: No Stand-Alone Forms: My [facility] Skilled Items Patient informed of condition?: Yes DNR: Yes Discharge Level of Care: Skilled Communicable Disease: No Discharge Prognosis: Stable Lines: None Urinary Catheter: No Medications and DC Order Prescriptions: New acetaminophen 325 mg Tablet 650 mg PO Q4H PRNQty: 0 0RF divalproex 500 mg Tablet Extended Release 24 Hr 500 mg PO QAM Qty: 0 0RF melatonin 3 mg Tablet 6 mg PO HS Qty: 0 0RF thiamine HCl (vitamin B1) 100 mg Tablet 200 mg PO DAILY Qty: 0 0RF Continued trospium 20 mg tablet 20 mg PO BID Qty: 60 2RF Rx Instructions: administer on an empty stomach atorvastatin 40 mg tablet 40 mg PO QAM Qty: 90 1RF calcium carbonate [Calcium 600] 600 mg calcium (1,500 mg) tablet 600 mg PO QAM cholecalciferol (vitamin D3) 25 mcg (1,000 unit) capsule 5,000 unit PO QAM cholecalciferol (vitamin D3) 125 mcg (5,000 unit) capsule 125 mcg PO DAILY Qty: 30 3RF omeprazole 40 mg capsule,delayed release(DR/EC) 40 mg PO DAILY Qty: 90 1RF multivitamin with minerals [Hair,Skin and Nails] Tablet 1 tab PO QAM aspirin 81 mg Tablet,Delayed Release (Dr/Ec) 81 mg PO QAM Qty: 30 0RF escitalopram oxalate 10 mg Tablet 10 mg PO HS Qty: 30 0RF ondansetron HCl 4 mg tablet 4 mg PO Q8 PRN (Reason: Nausea And Vomiting) Discontinued mirtazapine 7.5 mg tablet 7.5 mg PO DAILY Qty: 30 1RF Discharge Orders: Discharge Order (Routine); Ordered 10/17/23 Ordered By: Hiren Figueroa Admission Data Admit Date/Time: 10/12/23 14:40 Attending Provider: Hiren Figueroa Admit Provider: Kris Knott Primary Care Provider: Abigail Humphrey V. Other Providers: [facility]; [facility] Hamm [facility]; Kris Knott; Rajiv Harding; Felisa Dumont; Mckenna Castaneda; Werner Campbell; Tawana Nur; Rocio Glez; Kobe Glover; Leisa Hsu; Lorraine Johnson Coding Level of Care Code 85020 INP/OBS DISCH >30 MIN Diagnoses Seizure-like activity R56.9 Ambulatory dysfunction R26.2 Lyme disease A69.20 Myoclonic jerking G25.3 Acute confusion R41.0 Thiamine deficiency E51.9 GERD without esophagitis K21.9 History of TIA (transient ischemic attack) Z86.73 Dementia F03.90
== END 2023-10-17 12:26 | DRG 71 ==
LOC: ED 14:38 → EDINP 14:38 → SUATTDRO 17:01 → 2W 17:42 → SUATTDRO 10-12 14:40 → 3E 10-14 16:27